=== PATIENT | female | born 1960 | race Caucasian/White ===

== ENCOUNTER 2023-02-25 13:35 | Inpatient (IN) | payer OTHER, SELFPAY ==
[2023-02-25] VITALS (27 sets, daily range): BP systolic 141–180; BP diastolic 75–127; PULSE 77–117; RESP 13–26; TEMP 36.4–36.6; O2SAT 88–98; BMI 15.9; BMI 15.0
--- NOTE | 2023-02-25 13:54 | ED.GENADUL1 ---
HPI - General Adult General Chief complaint: Shortness of Breath/Dyspnea Stated complaint: SHORTNESS OF BREATH/DIFFICULTY BREATHING Time Seen by Provider: 02/25/23 13:41 Source: patient Mode of arrival: walk-in Limitations: no limitations History of Present Illness HPI narrative: patient with steadily increasing shortness of breath over the last week. Does not have a PCP and has never had PFTs. 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 Went to urgent care and diagnosed with bronchitis - placed on zpak and albuterol MDI - got worse rather than better. No fever or chills. Steady cough. initially had exertional dyspnea and now has conversational dyspnea. No chest pain, pressure or tightness. No GI or symptoms. She apparently has an appointment with Dr Macedo next week - this will be the initial PCP visit. Related Data Home Medications Medication Instructions Recorded Confirmed albuterol sulfate 90 mcg/actuation 2 puff inhalation Q6H PRN sob 02/25/23 02/25/23 aerosol inhaler azithromycin 250 mg tablet mg 02/25/23 cetirizine 10 mg tablet (24Hour 10 mg PO DAILY 02/25/23 02/25/23 Allergy) methylprednisolone 4 mg tablets in 4 mg 02/25/23 a dose pack Allergies Allergy/AdvReac Type Severity Reaction Status Date / Time penicillin G Allergy Intermediate Verified 02/25/23 13:49 [facility] Social History Smoking status: Current every day smoker Exam Narrative Exam Narrative: Nurses notes and vital signs reviewed and patient IS hypoxic - was less than 89% on RA - now 97% on 3LPM NC placed after arrival. afebrile General: Tachypneic and in mild distress. Skin: Warm, dry, no pallor noted. No rash. Head: Normocephalic, atraumatic. Neck: Supple, non-tender. Eye: Pupils are equal, round and EOMI. No scleral icterus. Ears, Nose, Mouth, and Throat: Oral mucosa is moist Cardiovascular: Regular Rate and Rhythm without murmur, gallop or rub. Respiratory: Accessory muscle use and increased work of breathing with decreased air exchange. Lungs with inspiratory and inspiratory wheezing but not moving air well. Chest Wall: no tenderness, crepitus or subcutaneous emphysema Musculoskeletal: normal ROM, no calf or popliteal tenderness, no lower extremity edema/swelling GI: Abdomen is soft, non-distended. Normal bowel sounds. No tenderness to palpation. No rebound, guarding, or rigidity noted. Neurological: A&O x4. No cranial nerve dysfunction observed. No truncal ataxia. Moves all extremities. Sensation intact. Psychiatric: Cooperative and interactive. Normal mood and affect. Constitutional Vital Signs, click to edit/add: Last Vital Signs Temp 97.6 F 02/25/23 13:43 Pulse 89 02/25/23 14:40 Resp 24 02/25/23 14:40 BP 161/94 H 02/25/23 14:30 Pulse Ox 97 02/25/23 14:44 O2 Del Method Nasal Cannula 02/25/23 14:44 O2 Flow Rate 3 02/25/23 14:44 Course Vital Signs Vital signs: Vital Signs Pulse Oximetry 89 L 02/25/23 13:42 Temperature 97.6 F 02/25/23 13:43 Pulse Rate 89 02/25/23 14:40 Respiratory Rate 24 02/25/23 14:40 Blood Pressure 161/94 H 02/25/23 14:30 Pulse Oximetry 97 02/25/23 14:44 Oxygen Delivery Method Nasal Cannula 02/25/23 14:44 Oxygen Delivery Flow Rate 3 02/25/23 14:44 Medical Decision Making MDM Narrative Medical decision making narrative: Patient hypoxic on arrival, increased work of breathing and decreased air exchange. penitentiary smoker without recent PCP evaluation and no prior LFTs. Clinical picture of COPD. Patient was placed on cardiac tech and EKG obtained. Blood drawn and sent for evaluation. Patient ordered to receive IV Solumedrol and nebulized Albuterol/Atrovent. WBC elevated at 12.5k. DDimer and troponin negative. metabolic profile essentially unremarkable. CXR with hyperinflation consistent with COPD. Patient felt better after receiving oxygen via NC but still has increased work of breathing. Better air exchange on re-examination after receiving duoneb treatment. Will need to be admitted for hypoxia and COPD. Call placed to Dr Hamilton to discuss and he agreed to admit the patient to his service. Patient would benefit from out-patient PULM referral/follow up. Patient informed of diagnosis, plan for treatment and need for admission. Lab Data Lab results reviewed: Yes I reviewed the patient's lab results Labs: Lab Results 02/25/23 02/25/23 Range/Units 14:00 14:05 WBC 12.5 H (4.0-11.0) 10^3/uL RBC 5.60 H (4.20-5.40) 10^6/uL Hgb 15.9 (12.0-16.0) g/dL Hct 48.7 H (36.0-48.0) % MCV 87.0 (81.0-99.0) fL MCH 28.4 (26.7-34.0) pg MCHC 32.6 (29.9-35.2) g/dL RDW 13.7 (11.0-15.0) % Plt Count 461 H (150-450) 10^3/uL MPV 9.6 (9.5-13.5) fL Neut % (Auto) 71.0 (43.0-75.0) % Lymph % (Auto) 20.1 L (20.5-60.0) % [place] % (Auto) 7.3 (1.7-12.0) % Eos % (Auto) 0.7 L (0.9-7.0) % Baso % (Auto) 0.6 (0.2-2.0) % Neut # (Auto) 8.8 H (1.4-6.5) 10^3/uL Lymph # (Auto) 2.5 (1.2-3.8) 10^3/uL [place] # (Auto) 0.9 H (0.3-0.8) 10^3/uL Eos # (Auto) 0.1 (0.0-0.7) 10^3/uL Baso # (Auto) 0.1 (0.0-0.1) 10^3/uL Abs Immat Gran (auto) 0.04 H (0.00-0.03) 10^3/uL Imm/Tot Granulo (auto) 0.3 (0.0-0.5) % D-Dimer <0.19 (<=0.59) mg/L FEU Sodium 137 (136-145) mmol/L Potassium 4.0 (3.5-5.1) mmol/L Chloride 99 (98-107) mmol/L Carbon Dioxide 31.2 (21.0-32.0) mmol/L Anion Gap 10.8 BUN 13.0 (7.0-18.0) mg/dL Creatinine 0.69 (0.55-1.02) mg/dL Est GFR ( Amer) >60 (>=60) Est GFR (Non-Af Amer) >60 (>=60) BUN/Creatinine Ratio 18.8 Glucose 107 H (74-106) mg/dL Lactate 1.3 (0.4-2.0) mmol/L Calcium 9.3 (8.5-10.1) mg/dL Troponin I High Sens 7.7 (4.0-51.3) pg/mL NT-Pro-B Natriuret Pep 264.0 (<=900.0) pg/mL SARS-CoV-2 (PCR) Negative (NEGATIVE) ECG Data Interpretation: EKG interpretation: Emergency Department physician interpretation. Normal sinus rhythm at 83bpm. moderate right axis, no ST segment elevation or depression. Discharge Plan Discharge Chief Complaint: Shortness of Breath/Dyspnea Time of Disposition Decision: 15:06 Prescriptions / Home Meds: No Action albuterol sulfate 90 mcg/actuation HFA aerosol inhaler 2 puff INHALATION Q6H PRN (Reason: sob) azithromycin 250 mg tablet methylprednisolone 4 mg tablets,dose pack 4 mg cetirizine [24Hour Allergy] 10 mg tablet 10 mg PO DAILY
--- NOTE | 2023-02-25 13:57 | XR_ITS ---
The [address] [address] Patient Name: BOB SIMPSON MRN: [id number] date: 1960 Sex: F Assigned Patient Location: ED.MAIN Current Patient Location: ED.MAIN Accession/Order Number: [id number] Exam Date: 02/25/2023 14:35 Report Date: 02/25/2023 15:03 At the request of: ANDREIA AVILA Procedure: XR chest 1V EXAM: XR chest 1V HISTORY: shortness of breath COMPARISON: None. TECHNIQUE: Single AP view. FINDINGS: The lungs are hyperexpanded with air trapping. Consider COPD or reactive airway disease. The heart size is normal. Vascularity is also normal. XR/XR chest 1V IMPRESSION: No acute findings. Electronically authenticated by: CYNDEE ALMONTE Date: 02/25/2023 15:03
--- NOTE | 2023-02-25 13:57 | ECG_ITS ---
The [facility] Test Date: 2023-02-25 Pat Name: BOB SIMPSON Department: Room: - Gender: Female Type Copy Examiner: : 1960 Requested By: Order Number: [id number] Reading MD: NAPOLEON MCCORMICK Measurements Intervals [place] Rate: 83 P: 90 DE: 150 QRS: 91 QRSD: 80 T: 76 QT: 356 QTc: 396 Interpretive Statements 1100 Sinus rhythm 46910 with occasional ventricular premature complexes (Unreliable analysis due to noise) 7102 Moderate right axis deviation 0102 ARTIFACT PRESENT 9140 abnormal rhythm ECG No previous ECG available for comparison Electronically Signed On 02-26-2023 18:41:13 EDT by NAPOLEON MCCORMICK
[2023-02-25] MEDS: IPRATROPIUM/ALBUTEROL SULFATE 3 ML AMPUL.NEB IH ×3 (14:19→21:07)
[2023-02-25 14:20] LABS: Basophils Absolute Auto 0.1 10^3/uL (0.0-0.1); Basophils Percent Auto 0.6 % (0.2-2.0); Eosinophils Absolute Auto 0.1 10^3/uL (0.0-0.7); Eosinophils Percent Auto 0.7 % (0.9-7.0); Hematocrit 48.7 % (36.0-48.0); Hemoglobin 15.9 g/dL (12.0-16.0); Immature Granulocytes Abs Auto 0.04 10^3/uL (0.00-0.03); Immature Granulocytes Pct Auto 0.3 % (0.0-0.5); Lymphocytes Absolute Auto 2.5 10^3/uL (1.2-3.8); Lymphocytes Percent Auto 20.1 % (20.5-60.0); Mean Corpuscular HGB Conc 32.6 g/dL (29.9-35.2); Mean Corpuscular Hemoglobin 28.4 pg (26.7-34.0); Mean Platelet Volume 9.6 fL (9.5-13.5); Monocytes Absolute Auto 0.9 10^3/uL (0.3-0.8); Monocytes Percent Auto 7.3 % (1.7-12.0); Neutrophils Absolute Auto 8.8 10^3/uL (1.4-6.5); Platelet Count 461 10^3/uL (150-450); Red Cell Distribution Width 13.7 % (11.0-15.0); White Blood Count 12.5 10^3/uL (4.0-11.0)
[2023-02-25] MEDS: METHYLPREDNISOLONE SOD SUCC PF 125 MG/2 ML VIAL IVP (14:22)
[2023-02-25 14:33] LABS: D Dimer <0.19 mg/L FEU (<=0.59)
[2023-02-25 14:38] LABS: Lactate/Lactic Acid 1.3 mmol/L (0.4-2.0)
[2023-02-25 14:44] LABS: Anion Gap 10.8; BUN Creatinine Ratio 18.8; Calcium 9.3 mg/dL (8.5-10.1); Carbon Dioxide 31.2 mmol/L (21.0-32.0); Chloride 99 mmol/L (98-107); Estimated GFR (African America >60 (>=60); Estimated GFR (Non-African Ame >60 (>=60); Glucose 107 mg/dL (74-106); Sodium 137 mmol/L (136-145); Troponin I High Sensitivity 7.7 pg/mL (4.0-51.3)
[2023-02-25 14:51] LABS: SARS-CoV-2 Ag NEGATIVE (NEGATIVE)
--- NOTE | 2023-02-25 16:25 | PC.NURSE ---
Computer Systems Designer and Pigment Weigher Jayla two verification for wrist band
[2023-02-25 17:16] LABS: Glucometer 149 mg/dL (74-106)
[2023-02-25] MEDS: AZITHROMYCIN 250 MG TABLET 500 MG PO (17:34)
[2023-02-25 20:14] LABS: Glucometer 194 mg/dL (74-106)
[2023-02-25] MEDS: ENOXAPARIN SODIUM 30 MG/0.3 ML SYRINGE SUBQ (21:57)
[2023-02-25] MEDS: INSULIN ASPART 300 UNIT/3 ML PEN SUBQ (21:58)
[2023-02-25] MEDS: METHYLPREDNISOLONE SOD SUCC PF 125 MG/2 ML VIAL 40 MG IVP (22:37)
[2023-02-26] VITALS (23 sets, daily range): BP systolic 134–148; BP diastolic 77–92; PULSE 91–119; RESP 3–20; TEMP 36.6–36.7; O2SAT 82–97
[2023-02-26] MEDS: IPRATROPIUM/ALBUTEROL SULFATE 3 ML AMPUL.NEB IH (01:15)
--- NOTE | 2023-02-26 04:35 | ECG_ITS ---
The [facility] Test Date: 2023-02-26 Pat Name: BOB SIMPSON Department: Room: Gender: Female Die Hardener: : 1960 Requested By: Order Number: [id number] Reading MD: NAPOLEON MCCORMICK Measurements Intervals [place] Rate: 101 P: 84 PA: 176 QRS: 91 QRSD: 84 T: 64 QT: 349 QTc: 454 Interpretive Statements SINUS TACHYCARDIA POSSIBLE RIGHT ATRIAL ENLARGEMENT [0.25mV P WAVE] LEFT ATRIAL ENLARGEMENT [-0.15mV P WAVE IN V1/V2] BORDERLINE RIGHT AXIS DEVIATION [QRS AXIS > 90] SEPTAL MYOCARDIAL INFARCTION [40+ ms Q WAVE IN V1/V2], OF INDETERMINATE AGE Compared to ECG 02/25/2023 13:53:02 Atrial abnormality now present Myocardial infarct finding now present Sinus rhythm no longer present Ventricular premature complex(es) no longer present Electronically Signed On 02-26-2023 18:44:16 EDT by NAPOLEON MCCORMICK
[2023-02-26 04:37] LABS: Basophils Percent Auto 0.1 % (0.2-2.0); Hematocrit 43.9 % (36.0-48.0); Immature Granulocytes Abs Auto 0.03 10^3/uL (0.00-0.03); Immature Granulocytes Pct Auto 0.3 % (0.0-0.5); Lymphocytes Absolute Auto 0.9 10^3/uL (1.2-3.8); Lymphocytes Percent Auto 8.9 % (20.5-60.0); Mean Corpuscular HGB Conc 34.2 g/dL (29.9-35.2); Mean Corpuscular Hemoglobin 29.5 pg (26.7-34.0); Mean Corpuscular Volume 86.4 fL (81.0-99.0); Monocytes Absolute Auto 0.2 10^3/uL (0.3-0.8); Monocytes Percent Auto 2.2 % (1.7-12.0); Neutrophils Absolute Auto 8.4 10^3/uL (1.4-6.5); Neutrophils Percent Auto 88.5 % (43.0-75.0); Platelet Count 445 10^3/uL (150-450); Red Blood Count 5.08 10^6/uL (4.20-5.40); Red Cell Distribution Width 13.6 % (11.0-15.0); White Blood Count 9.5 10^3/uL (4.0-11.0)
[2023-02-26 05:03] LABS: Alanine Aminotransferase 30 U/L (14-59); Albumin Globulin Ratio 1.1; Albumin Level 3.7 g/dL (3.4-5.0); Alkaline Phosphatase 82 U/L (46-116); Anion Gap 8.6; Aspartate Amino Transferase 23 U/L (15-37); BUN Creatinine Ratio 18.5; Bilirubin Total 0.4 mg/dL (0.2-1.0); Calcium 9.3 mg/dL (8.5-10.1); Carbon Dioxide 32.6 mmol/L (21.0-32.0); Chloride 101 mmol/L (98-107); Estimated GFR (African America >60 (>=60); Estimated GFR (Non-African Ame >60 (>=60); Globulin 3.4 g/dL; Glucose 129 mg/dL (74-106); Potassium 4.2 mmol/L (3.5-5.1); Sodium 138 mmol/L (136-145); Total Protein 7.1 g/dL (6.4-8.2)
[2023-02-26 05:08] LABS: Magnesium 2.3 mg/dL (1.8-2.4); Troponin I High Sensitivity 7.2 pg/mL (4.0-51.3)
[2023-02-26 07:26] LABS: Glucometer 112 mg/dL (74-106)
[2023-02-26] MEDS: METHYLPREDNISOLONE SOD SUCC PF 125 MG/2 ML VIAL 40 MG IVP ×3 (07:39→22:19)
[2023-02-26] MEDS: AZITHROMYCIN 250 MG TABLET 500 MG PO (08:36)
[2023-02-26 11:14] LABS: Glucometer 119 mg/dL (74-106)
--- NOTE | 2023-02-26 12:14 | PM.HP ---
H&P: HPI History of Present Illness Chief complaint: SHORTNESS OF BREATH/DIFFICULTY BREATHING Narrative: 62 y o female with longstanding hx of smoking presents with 3-4 weeks of worsening SOB, weakness and fatigue and was found to be hypoxic with pulse Ox in 88% on RA and was admitted for acute resp failure with hypoxia likely sec to COPD exacerbation. Patient was treated with systemic steroids, duonebs and seemed to be doing better and was briefly w/o O2 and plan was to discharge her on oral Prednisone. However, she later on became acutely hypoxic with pulse ox in low 80s on RA and was put on Oxygen again. She is experiencing tachycardia and anxioty on Duonebs so we will change duonebs to Xopenex. Will repeat CXR to ensure no new lung findings. Paitent changed to inpatient as continues to have resp difficulty, event at rest, persistent hypoxia and will required continued treatment and monitoring. Off note, she was treated for COPD exacerbation about a week ago with oral steroids, ventolin inhaler about a week ago at an urgent care with no improvement in her symptoms She denies fever, chills. She does not have a formal diagnosis of COPD. Review of Systems ROS Status of ROS 10 or more systems reviewed and unremarkable except as noted in history and below PFSH PFSH Medical History Basal cell carcinoma ?C44.91 - Basal cell carcinoma of skin, unspecified (ICD-10) COPD (chronic obstructive pulmonary disease) ?J44.9 - Chronic obstructive pulmonary disease, unspecified (ICD-10) Hypoxia ?R09.02 - Hypoxemia (ICD-10) Smoker ?F17.200 - Nicotine dependence, unspecified, uncomplicated (ICD-10) Family History Brother Family history of cancer Mother Family history of diabetes mellitus Other Family history of hypertension Social History Within the past year, how often did you have six or more drinks on one occasion: never Smoking status: Current every day smoker Previous occupational history: Retired from [employer] Known occupational exposures/hazards: No Highest level of school completed/degree received: some college, no degree Are you now , , , , never or living with a partner: In a typical week, how many times do you talk on the telephone with family, friends, or neighbors: 3 or more times per week How often do you get together with friends or relatives: 3 or more times per week How often do you attend samaritan or uatsdin services: never Do you belong to any clubs or organizations such as samaritan groups unions, fraternal or athletic groups, or school groups: no Total score: 2 Score interpretation: A score of greater than or equal to 2 indicates the lowest level of social isolation. Little interest or pleasure in doing things: not at all Feeling down, depressed, or hopeless: not at all Feel stressed/tense/nervous/anxious/difficulty sleeping: not at all Due to disability, difficulty making decisions: No Do you think of yourself as: straight/heterosexual Gender Identity: female Meds Home Medications and Allergies Home Medications Medication Instructions Recorded Confirmed Type albuterol sulfate 90 mcg/actuation 2 puff inhalation Q6H PRN sob 02/25/23 02/25/23 History aerosol inhaler azithromycin 250 mg tablet 250 mg PO QDAY 02/25/23 02/26/23 History cetirizine 10 mg tablet (24Hour 10 mg PO DAILY 02/25/23 02/25/23 History Allergy) methylprednisolone 4 mg tablets in 4 mg PO DAILY 02/25/23 02/26/23 History a dose pack Allergies Allergy/AdvReac Type Severity Reaction Status Date / Time penicillin G Allergy Intermediate Verified 02/25/23 13:49 Exam Constitutional Vital Signs, click to edit/add: Last Vital Signs Temp 98 F 02/26/23 05:05 Pulse 98 H 02/26/23 11:52 Resp 14 02/26/23 11:12 BP 138/92 H 02/26/23 05:05 Pulse Ox 94 L 02/26/23 11:52 O2 Del Method Nasal Cannula 02/26/23 11:13 O2 Flow Rate 3 02/26/23 11:13 Documenting provider has reviewed patient's vital signs: yes Common normals: oriented x3 General appearance: cooperative and anxious Nutritional appearance: cachectic HENMT Common normals: normocephalic and head/scalp atraumatic Head and scalp: normocephalic and atraumatic Eye Common normals: conjunctivae normal and no scleral icterus Conjunctiva: conjunctiva(e) normal Respiratory Common normals: no use of accessory muscles Effort & inspection: able to speak in complete sentences Auscultation: wheezes and diminished lung sounds Cardio Common normals: S1 normal heart sound and S2 normal heart sound Rate: tachycardic Heart sounds: S1 normal and S2 normal GI Common normals: Normal to inspection, nondistended, normoactive bowel sounds present, soft to palpation, non-tender and no hepatosplenomegaly Palpation: soft and no hepatosplenomegaly Extremity Common normals: no clubbing, cyanosis or edema Neuro Common normals: oriented x3, moves all extremities and no focal motor deficits Psych Common normals: mental status grossly normal, denies hallucinations, denies homicidal ideation and denies suicidal ideation Activity/motor behavior: restless Mood and affect: anxious Results Labs Labs: Short CBC 02/25/23 02/26/23 Range/Units 14:05 04:01 WBC 12.5 H 9.5 (4.0-11.0) 10^3/uL Hgb 15.9 15.0 (12.0-16.0) g/dL Hct 48.7 H 43.9 (36.0-48.0) % Plt Count 461 H 445 (150-450) 10^3/uL BMP 02/25/23 02/26/23 14:05 04:01 Sodium 137 138 Potassium 4.0 4.2 Chloride 99 101 Carbon Dioxide 31.2 32.6 H BUN 13.0 12.0 Creatinine 0.69 0.65 Glucose 107 H 129 H Calcium 9.3 9.3 Liver Function 02/26/23 Range/Units 04:01 Total Bilirubin 0.4 (0.2-1.0) mg/dL AST 23 (15-37) U/L ALT 30 (14-59) U/L Alkaline Phosphatase 82 (46-116) U/L Albumin 3.7 (3.4-5.0) g/dL Assessment and Plan Assessment and Plan (1) Acute respiratory failure with hypoxia: Assessment and Plan: No prior hx of hypoxia. Sec to COPD exacerbation. C/w systemic steroids. Repeat CXR. Wean off O2 as tolerated. (2) COPD with acute exacerbation: Assessment and Plan: No prior formal diagnoses of COPD But considering her prolonged hx of smoking - she likely has undrlying COPD. Switched to Xopenex as she was experiencing tachycardia, anxiety of duonebs. Repeat CXR. Added OPEP. (3) Anxiety: Assessment and Plan: Added vistaril for her anxiety. (4) Smoker: Assessment and Plan: 1 PPD for over 40 years. Discussed smoking cessation (5) Malnutrition: Assessment and Plan: bitemporal muscle wasting noted. BMI of 15. Added ensure. WIll need outpatient w/u for possible underlying malignancy.
--- NOTE | 2023-02-26 12:21 | XR_ITS ---
The [address] [address] Patient Name: BOB SIMPSON MRN: [id number] date: 1960 Sex: F Assigned Patient Location: MS Current Patient Location: MS Accession/Order Number: [id number] Exam Date: 02/26/2023 14:00 Report Date: 02/26/2023 16:11 At the request of: SHAIKH MAY Procedure: XR chest 1V EXAM: XR chest 1V HISTORY: Shortness of breath COMPARISON: 02/25/2023 TECHNIQUE: Chest X-ray AP, 1 view FINDINGS: Support devices: None. Lungs/pleura: No consolidation, effusion, or pneumothorax. Heart and mediastinum: Normal contours. Bones: No acute abnormality identified. XR/XR chest 1V Impression: No radiographic evidence of acute cardiopulmonary process. Electronically authenticated by: RACHELLE BEGUM Date: 02/26/2023 16:11
[2023-02-26] MEDS: ENSURE CLEAR 237 ML LIQUID PO ×2 (13:33→22:19)
[2023-02-26] MEDS: HYDROXYZINE HCL 25 MG TABLET PO ×2 (13:33→22:20)
[2023-02-26 15:30] LABS: SARS-CoV-2 NAA NOT DETECTED (NOT DETECTE)
[2023-02-26 15:56] LABS: Glucometer 190 mg/dL (74-106)
[2023-02-26] MEDS: INSULIN ASPART 300 UNIT/3 ML PEN SUBQ ×2 (16:02→22:21)
[2023-02-26] MEDS: LEVALBUTEROL HCL 1.25 MG/3 ML VIAL NEB IH ×2 (16:02→22:14)
[2023-02-26 21:41] LABS: Glucometer 152 mg/dL (74-106)
[2023-02-26] MEDS: ENOXAPARIN SODIUM 30 MG/0.3 ML SYRINGE SUBQ (22:20)
[2023-02-27] VITALS (19 sets, daily range): BP systolic 126–151; BP diastolic 77–92; PULSE 82–112; RESP 16–24; TEMP 36.6–36.9; O2SAT 90–96
[2023-02-27] MEDS: LEVALBUTEROL HCL 1.25 MG/3 ML VIAL NEB IH ×4 (04:43→22:09)
[2023-02-27 06:06] LABS: Basophils Percent Auto 0.1 % (0.2-2.0); Hematocrit 44.7 % (36.0-48.0); Hemoglobin 14.5 g/dL (12.0-16.0); Immature Granulocytes Abs Auto 0.12 10^3/uL (0.00-0.03); Immature Granulocytes Pct Auto 0.7 % (0.0-0.5); Mean Corpuscular HGB Conc 32.4 g/dL (29.9-35.2); Mean Corpuscular Hemoglobin 28.3 pg (26.7-34.0); Mean Corpuscular Volume 87.3 fL (81.0-99.0); Mean Platelet Volume 9.7 fL (9.5-13.5); Monocytes Absolute Auto 0.6 10^3/uL (0.3-0.8); Monocytes Percent Auto 3.7 % (1.7-12.0); Neutrophils Absolute Auto 14.7 10^3/uL (1.4-6.5); Neutrophils Percent Auto 89.5 % (43.0-75.0); Platelet Count 456 10^3/uL (150-450); Red Blood Count 5.12 10^6/uL (4.20-5.40); Red Cell Distribution Width 13.4 % (11.0-15.0); White Blood Count 16.4 10^3/uL (4.0-11.0)
[2023-02-27] MEDS: METHYLPREDNISOLONE SOD SUCC PF 125 MG/2 ML VIAL 40 MG IVP (06:06)
[2023-02-27] MEDS: HYDROXYZINE HCL 25 MG TABLET PO ×3 (06:07→21:42)
[2023-02-27 06:57] LABS: Alanine Aminotransferase 26 U/L (14-59); Albumin Globulin Ratio 1.1; Albumin Level 3.5 g/dL (3.4-5.0); Alkaline Phosphatase 75 U/L (46-116); Anion Gap 5.5; Aspartate Amino Transferase 20 U/L (15-37); BUN Creatinine Ratio 31.7; Bilirubin Total 0.4 mg/dL (0.2-1.0); Calcium 9.3 mg/dL (8.5-10.1); Chloride 103 mmol/L (98-107); Estimated GFR (African America >60 (>=60); Estimated GFR (Non-African Ame >60 (>=60); Globulin 3.2 g/dL; Glucose 121 mg/dL (74-106); Potassium 4.5 mmol/L (3.5-5.1); Sodium 137 mmol/L (136-145); Total Protein 6.7 g/dL (6.4-8.2)
--- NOTE | 2023-02-27 07:38 | XR_ITS ---
The [address] [address] Patient Name: BOB SIMPSON MRN: [id number] date: 1960 Sex: F Assigned Patient Location: MS Current Patient Location: MS Accession/Order Number: [id number] Exam Date: 02/27/2023 07:50 Report Date: 02/27/2023 08:18 At the request of: SHAIKH MAY Procedure: XR chest 1V EXAM: XR chest 1V HISTORY: SOB COMPARISON: 02/26/2023 TECHNIQUE: AP portable erect FINDINGS: LUNGS: Hyperinflation. No focal parenchymal infiltrates VASCULATURE: No increased pulmonary vasculature. PLEURA: No pneumothorax, effusion, or pleural thickening. CARDIAC: No cardiomegaly or cardiac silhouette abnormality. MEDIASTINUM: No visible mass or adenopathy. Aortic atherosclerosis BONES: No fracture or visible bone lesion. OTHER: Negative. XR/XR chest 1V IMPRESSION: Hyperinflation, clear lungs Electronically authenticated by: LEELEE ALST Date: 02/27/2023 08:18
[2023-02-27 09:23] LABS: Glucometer 152 mg/dL (74-106)
[2023-02-27] MEDS: AZITHROMYCIN 250 MG TABLET 500 MG PO (09:40)
[2023-02-27] MEDS: ENSURE CLEAR 237 ML LIQUID PO (09:41)
--- NOTE | 2023-02-27 10:45 | CT_ITS ---
[address] [address] Patient Name: BOB SIMPSON MRN: [id number] date: 1960 Sex: F Assigned Patient Location: MS Current Patient Location: MS Accession/Order Number: [id number] Exam Date: 02/27/2023 11:00 Report Date: 02/27/2023 11:53 At the request of: SHAIKH MAY Procedure: CT angio chest EXAMINATION: CT angio chest HISTORY: SOB COMPARISON: No relevant comparison available. TECHNIQUE: Multi-planar CT images were created with IV contrast. Axial, Coronal, and Sagittal images. Dose reduction techniques were achieved by using automated exposure control and/or adjustment of mA and/or kV according to patient size and/or use of iterative reconstruction technique. FINDINGS: LUNGS: Moderate to severe centrilobular emphysema with an upper lobe predominance. No significant pulmonary nodule or mass is observed. Some linear opacities in the apices and lung bases likely represent atelectasis and/or scarring. PLEURA: No mass, effusion, or pneumothorax. VASCULATURE: Normal postcontrast opacification of the central pulmonary arterial tree with no filling defects to suggest acute pulmonary embolus. Dilation of the ascending aorta measuring 4 cm in diameter. TEJ: No mass or adenopathy. MEDIASTINUM: No mass or adenopathy. CARDIAC: No enlargement, pericardial thickening, or significant calcification. AORTA: No aneurysm or dissection. CHEST WALL: No mass or axillary adenopathy. BONES: No bone lesion or fracture. LIMITED ABDOMEN: No suspicious findings. Limited images of the upper abdomen. OTHER: Negative. CT/CT angio chest IMPRESSION: No central pulmonary thromboembolic disease Moderate to severe centrilobular emphysema Dilated ascending aorta measuring 4 cm in diameter Electronically authenticated by: LEELEE LAST Date: 02/27/2023 11:53
--- NOTE | 2023-02-27 10:46 | PM.DS1 ---
DS: Providers Provider Date of admission: 02/26/23 11:51 Primary care physician: Non-Staff Physician, Consults: 02/27/23 10:45 Consult to Pulmonology Routine Consulting Provider: Wesley Stephens Reason for consultation: COPD, resp failure with hypoxia Has provider been notified: Yes DS: Diagnosis Discharge Diagnosis (1) Acute respiratory failure with hypoxia: (2) COPD with acute exacerbation: (3) Anxiety: (4) Smoker: (5) Malnutrition: DS: Summary Time Spent with Patient Time attestation: Total time spent providing and/or coordinating discharge services: Exam Constitutional Vital Signs, click to edit/add: Last Vital Signs Temp 97.8 F 02/27/23 06:11 Pulse 112 H 02/27/23 09:51 Resp 18 02/27/23 06:11 BP 151/86 H 02/27/23 06:11 Pulse Ox 92 L 02/27/23 09:51 O2 Del Method Nasal Cannula 02/27/23 06:11 O2 Flow Rate 2 02/27/23 06:11 DS: Data Data Completed and Pending Labs on day of discharge: Labs from last 24 hours 02/27/23 02/27/23 02/26/23 09:07 04:30 21:39 WBC 16.4 H RBC 5.12 Hgb 14.5 Hct 44.7 MCV 87.3 MCH 28.3 MCHC 32.4 RDW 13.4 Plt Count 456 H MPV 9.7 Neut % (Auto) 89.5 H Lymph % (Auto) 6.0 L [place] % (Auto) 3.7 Eos % (Auto) 0.0 L Baso % (Auto) 0.1 L Neut # (Auto) 14.7 H Lymph # (Auto) 1.0 L [place] # (Auto) 0.6 Eos # (Auto) 0.0 Baso # (Auto) 0.0 Abs Immat Gran (auto) 0.12 H Imm/Tot Granulo (auto) 0.7 H Sodium 137 Potassium 4.5 Chloride 103 Carbon Dioxide 33.0 H Anion Gap 5.5 BUN 20.0 H Creatinine 0.63 Est GFR ( Amer) >60 Est GFR (Non-Af Amer) >60 BUN/Creatinine Ratio 31.7 Glucose 121 H Calcium 9.3 Total Bilirubin 0.4 AST 20 ALT 26 Alkaline Phosphatase 75 Total Protein 6.7 Albumin 3.5 Globulin 3.2 Albumin/Globulin Ratio 1.1 SARS-CoV-2 RNA (JC) POC Glucose 152 H 152 H 02/26/23 02/26/23 02/25/23 15:55 11:12 14:00 WBC RBC Hgb Hct MCV MCH MCHC RDW Plt Count MPV Neut % (Auto) Lymph % (Auto) [place] % (Auto) Eos % (Auto) Baso % (Auto) Neut # (Auto) Lymph # (Auto) [place] # (Auto) Eos # (Auto) Baso # (Auto) Abs Immat Gran (auto) Imm/Tot Granulo (auto) Sodium Potassium Chloride Carbon Dioxide Anion Gap BUN Creatinine Est GFR ( Amer) Est GFR (Non-Af Amer) BUN/Creatinine Ratio Glucose Calcium Total Bilirubin AST ALT Alkaline Phosphatase Total Protein Albumin Globulin Albumin/Globulin Ratio SARS-CoV-2 RNA (JC) Not detected POC Glucose 190 H 119 H Discharge Plan Discharge Discharge Medications: No Action albuterol sulfate 90 mcg/actuation HFA aerosol inhaler 2 puff INHALATION Q6H PRN (Reason: sob) azithromycin 250 mg tablet 250 mg PO QDAY Rx Instructions: 500 mg on day 1 02/22 then 250 mg daily for 4 days methylprednisolone 4 mg tablets,dose pack 4 mg PO DAILY Rx Instructions: medrol dose pack started 02/22 for 6 days cetirizine [24Hour Allergy] 10 mg tablet 10 mg PO DAILY
--- NOTE | 2023-02-27 10:46 | PM.IMPN1 ---
Progress Note: A&P Assessment and Plan (1) Acute respiratory failure with hypoxia: Assessment and Plan: Persistent hypoxia, continues to feel dyspnea at rest. CTA chest ordered to r/o PE. Consulted Pulm (2) COPD with acute exacerbation: Assessment and Plan: diminished air entry, generalized wheezing. C/w steroids, xopenex. Pulm consulted. (3) Anxiety: Assessment and Plan: Improved with addition of vistaril. C/w same (4) Smoker: Assessment and Plan: Educated and counseled on smoking cessation (5) Malnutrition: Assessment and Plan: Started on ensure. Will need outpatient f/u with medical collections specialist Plan Persistent resp distress with hypoxia. Pulm consulted. CTA chest ordered. Needs continued inpatient care and management for current illness. Internal Medicine - PN: Subj Subjective Interval history: Seen and examined. No overnight events. Patient appears short of breath at rest. Gets winded on minimal exertion. Still on 3 L O2 via NC Exam Constitutional Vital Signs, click to edit/add: Last Vital Signs Temp 97.8 F 02/27/23 06:11 Pulse 112 H 02/27/23 09:51 Resp 18 02/27/23 06:11 BP 151/86 H 02/27/23 06:11 Pulse Ox 92 L 02/27/23 09:51 O2 Del Method Nasal Cannula 02/27/23 06:11 O2 Flow Rate 2 02/27/23 06:11 Documenting provider has reviewed patient's vital signs: yes Common normals: oriented x3 General appearance: cooperative and anxious Nutritional appearance: cachectic [facility] Common normals: normocephalic and head/scalp atraumatic Head and scalp: normocephalic and atraumatic Eye Common normals: conjunctivae normal and no scleral icterus Conjunctiva: conjunctiva(e) normal Respiratory Effort & inspection: tachypneic Auscultation: wheezes and diminished lung sounds Other: Tachypneic, speaking in short sentences. Cardio Common normals: S1 normal heart sound and S2 normal heart sound Rate: tachycardic Heart sounds: S1 normal and S2 normal GI Common normals: Normal to inspection, nondistended, normoactive bowel sounds present, soft to palpation, non-tender and no hepatosplenomegaly Palpation: soft and no hepatosplenomegaly Extremity Common normals: no clubbing, cyanosis or edema Neuro Common normals: oriented x3, moves all extremities and no focal motor deficits Psych Common normals: mental status grossly normal, denies hallucinations, denies homicidal ideation and denies suicidal ideation Activity/motor behavior: restless Mood and affect: anxious Internal Medicine - PN: Obj Da Labs Labs: Laboratory Results - last 24 hr 02/25/23 02/26/23 02/26/23 14:00 11:12 15:55 WBC RBC Hgb Hct MCV MCH MCHC RDW Plt Count MPV Neut % (Auto) Lymph % (Auto) [place] % (Auto) Eos % (Auto) Baso % (Auto) Neut # (Auto) Lymph # (Auto) [place] # (Auto) Eos # (Auto) Baso # (Auto) Abs Immat Gran (auto) Imm/Tot Granulo (auto) Sodium Potassium Chloride Carbon Dioxide Anion Gap BUN Creatinine Est GFR ( Amer) Est GFR (Non-Af Amer) BUN/Creatinine Ratio Glucose Calcium Total Bilirubin AST ALT Alkaline Phosphatase Total Protein Albumin Globulin Albumin/Globulin Ratio SARS-CoV-2 RNA (JC) Not detected POC Glucose 119 H 190 H 02/26/23 02/27/23 02/27/23 21:39 04:30 09:07 WBC 16.4 H RBC 5.12 Hgb 14.5 Hct 44.7 MCV 87.3 MCH 28.3 MCHC 32.4 RDW 13.4 Plt Count 456 H MPV 9.7 Neut % (Auto) 89.5 H Lymph % (Auto) 6.0 L [place] % (Auto) 3.7 Eos % (Auto) 0.0 L Baso % (Auto) 0.1 L Neut # (Auto) 14.7 H Lymph # (Auto) 1.0 L [place] # (Auto) 0.6 Eos # (Auto) 0.0 Baso # (Auto) 0.0 Abs Immat Gran (auto) 0.12 H Imm/Tot Granulo (auto) 0.7 H Sodium 137 Potassium 4.5 Chloride 103 Carbon Dioxide 33.0 H Anion Gap 5.5 BUN 20.0 H Creatinine 0.63 Est GFR ( Amer) >60 Est GFR (Non-Af Amer) >60 BUN/Creatinine Ratio 31.7 Glucose 121 H Calcium 9.3 Total Bilirubin 0.4 AST 20 ALT 26 Alkaline Phosphatase 75 Total Protein 6.7 Albumin 3.5 Globulin 3.2 Albumin/Globulin Ratio 1.1 SARS-CoV-2 RNA (JC) POC Glucose 152 H 152 H
--- NOTE | 2023-02-27 10:53 | CM.NOTE ---
Rounds made with Dr. Hamilton. Dr. Hamilton discussed plan to Consult [employer] Consult[employer] and will also order a CT Chest. No plan for discharge today.
[2023-02-27 11:34] LABS: Glucometer 106 mg/dL (74-106)
--- NOTE | 2023-02-27 12:29 | P.PLCN_ITS ---
History of Present Illness History of Present Illness Consult date: 02/27/23 Requesting physician: Shaikh Alfonso Reason for consult: COPD Chief complaint: SHORTNESS OF BREATH/DIFFICULTY BREATHING Narrative: 62yo female presented to [facility] ER with worsening dyspnea and coughing. She is a long-term smoker who, as she states neglected myself , developed worsening dyspnea over the past 2 weeks. On retrospect, she feels her breathing has been slowly declining over the past months and years - she notes increased dyspnea with stairs and decreased stamina. Last week, her breathing abruptly worsened and she went to an urgent care. She was prescribed an antibiotic, steroids, and albuterol. She did not improve, and her daughter encouraged her to come to the ER for further evaluation. While in the ER, she was noted to have a pulse ox >89% on room air. She was placed on supplemental O2 which she states makes her feel less winded. She was taken off O2 yesterday, with her pulse ox dropping into the low 80's on room air. She is on no maintenance inhalers, has not seen a physician in years (though she is scheduled for a new patient appointment with Dr. Nilsa Macedo tomorrow), and is a long-term smoker (~1ppd for years). She denied to me any other past medical history. Review of Systems ROS Status of ROS 10 or more systems reviewed and unremarkable except as noted in history and below (Main complaint is dyspnea (conversational and with activity) and cough) [facility] Medical History Basal cell carcinoma ?C44.91 - Basal cell carcinoma of skin, unspecified (ICD-10) COPD (chronic obstructive pulmonary disease) ?J44.9 - Chronic obstructive pulmonary disease, unspecified (ICD-10) Hypoxia ?R09.02 - Hypoxemia (ICD-10) Smoker ?F17.200 - Nicotine dependence, unspecified, uncomplicated (ICD-10) Family History Brother Family history of cancer Mother Family history of diabetes mellitus Other Family history of hypertension Social History Within the past year, how often did you have six or more drinks on one occasion: never Smoking status: Current every day smoker Previous occupational history: Retired from [employer] Known occupational exposures/hazards: No Highest level of school completed/degree received: some college, no degree Are you now , , , , never or living with a partner: In a typical week, how many times do you talk on the telephone with family, friends, or neighbors: 3 or more times per week How often do you get together with friends or relatives: 3 or more times per week How often do you attend alevism or uatsdin services: never Do you belong to any clubs or organizations such as alevism groups unions, [email or web address] or [employer] groups, or school groups: no Total score: 2 Score interpretation: A score of greater than or equal to 2 indicates the lowest level of social isolation. Little interest or pleasure in doing things: not at all Feeling down, depressed, or hopeless: not at all Feel stressed/tense/nervous/anxious/difficulty sleeping: not at all Due to disability, difficulty making decisions: No Do you think of yourself as: straight/heterosexual Gender Identity: female Meds Home Medications and Allergies Home Medications Medication Instructions Recorded Confirmed Type albuterol sulfate 90 mcg/actuation 2 puff inhalation Q6H PRN sob 02/25/23 02/25/23 History aerosol inhaler azithromycin 250 mg tablet 250 mg PO QDAY 02/25/23 02/26/23 History cetirizine 10 mg tablet (24Hour 10 mg PO DAILY 02/25/23 02/25/23 History Allergy) methylprednisolone 4 mg tablets in 4 mg PO DAILY 02/25/23 02/26/23 History a dose pack Allergies Allergy/AdvReac Type Severity Reaction Status Date / Time penicillin G Allergy Intermediate Verified 02/25/23 13:49 Exam Constitutional Vital Signs, click to edit/add: Last Vital Signs Temp 97.8 F 02/27/23 06:11 Pulse 106 H 02/27/23 12:00 Resp 18 02/27/23 06:11 BP 151/86 H 02/27/23 06:11 Pulse Ox 93 L 02/27/23 12:00 O2 Del Method Nasal Cannula 02/27/23 11:26 O2 Flow Rate 2 02/27/23 11:26 Documenting provider has reviewed patient's vital signs: yes General appearance: cooperative and frail appearing Nutritional appearance: underweight Orientation/consciousness: Yes awake HENMT Other: Mallampati II. No oral candidiasis Neck & C-Spine Common normals: supple Chest Other: Increased A-P diameter. Hypertympanic to percussion. Mild tactile fremitus in the bases. Ribs protruding - decreased intercostal muscle mass. Respiratory Other: Mild conversational dyspnea (~8 words before taking a breath). Diminished breath sounds. Coarse in the bases. Prolonged expiratory phase, faint expiratory wheezes. Cardio Other: Tachycardic (110's) in a regular rhythm. A PVC was noted on telemetry when I was watching it. GI Other: Soft Extremity Other: Decreased muscle mass Neuro Other: A&O x3. No significant tremor noted. Psych Other: Patient was polite and friendly. She became sad and began crying a the end of the encounter when I was discussing the damage seen on her chest CT Results Laboratory Findings ABG, PT/INR, D-dimer: PT/INR, D-dimer D-Dimer <0.19 mg/L FEU (<=0.59) 02/25/23 14:05 Abnormal lab findings: Abnormal Labs 02/25/23 02/25/23 02/25/23 14:05 17:15 20:13 WBC 12.5 H RBC 5.60 H Hct 48.7 H Plt Count 461 H Neut % (Auto) Lymph % (Auto) 20.1 L Eos % (Auto) 0.7 L Baso % (Auto) Neut # (Auto) 8.8 H Lymph # (Auto) [place] # (Auto) 0.9 H Abs Immat Gran (auto) 0.04 H Imm/Tot Granulo (auto) Carbon Dioxide BUN Glucose 107 H POC Glucose 149 H 194 H 02/26/23 02/26/23 02/26/23 04:01 07:24 11:12 WBC RBC Hct Plt Count Neut % (Auto) 88.5 H Lymph % (Auto) 8.9 L Eos % (Auto) 0.0 L Baso % (Auto) 0.1 L Neut # (Auto) 8.4 H Lymph # (Auto) 0.9 L [place] # (Auto) 0.2 L Abs Immat Gran (auto) Imm/Tot Granulo (auto) Carbon Dioxide 32.6 H BUN Glucose 129 H POC Glucose 112 H 119 H 02/26/23 02/26/23 02/27/23 15:55 21:39 04:30 WBC 16.4 H RBC Hct Plt Count 456 H Neut % (Auto) 89.5 H Lymph % (Auto) 6.0 L Eos % (Auto) 0.0 L Baso % (Auto) 0.1 L Neut # (Auto) 14.7 H Lymph # (Auto) 1.0 L [place] # (Auto) Abs Immat Gran (auto) 0.12 H Imm/Tot Granulo (auto) 0.7 H Carbon Dioxide 33.0 H BUN 20.0 H Glucose 121 H POC Glucose 190 H 152 H 02/27/23 09:07 WBC RBC Hct Plt Count Neut % (Auto) Lymph % (Auto) Eos % (Auto) Baso % (Auto) Neut # (Auto) Lymph # (Auto) [place] # (Auto) Abs Immat Gran (auto) Imm/Tot Granulo (auto) Carbon Dioxide BUN Glucose POC Glucose 152 H Diagnostic Findings Chest x-ray: report reviewed CT scan - chest: report reviewed and image reviewed (Moderately severe centrilobular emphysema. No pulmonary emboli, no masses or nodules.) Assessment and Plan Assessment and Plan (1) COPD with acute exacerbation: Assessment and Plan: 1. Acute exacerbation of COPD. Moderately severe centrilobular emphysema noted. Patient is already on appropriate treatment with bronchodilators and steroids. No masses, nodules, infiltrates, or pulmonary emboli noted on chest CT this morning. Discussed with patient that at this point, she simply needs time to begin healing - if she restarts smoking, it may never improve. At discharge, would recommend starting a LAMA/LABA (e.g. Anoro, Stiloto, Bevespi) and prednisone taper. She will need PFT and alpha 1-antitrypsin testing outpatient. She is welcome to F/U with me. 2. Acute hypoxic respiratory failure. Secondary to #1. No evidence of pulmonary emboli, infiltrates, masses, etc. noted. Patient voices improvement with O2 use. Discussed with patient that only time will tell if she requires supplemental O2 for days, weeks, or months. She was counseled not to restart smoking with any open flame around O2. If her oxygenation worsens, would recommend ABG. 3. Tobacco abuse. Moderately severe emphysema most consistent with long-term smoking. She has smoked for years. She states she is not going to restart smoking, though there is risk that she may return to cigarettes once she is back home. Explained if she restarts smoking, all the progress made in the hospital could be reset and not allow enough time for her lungs to heal. She will qualify for LDCT screening, which would start 02/2024. 4. Sinus tachycardia. Most consistent with beta agonist use. Albuterol was changed to levalbuterol which may help. As long as HR stays <120-130, it is an acceptable adverse effect.
[2023-02-27] MEDS: METHYLPREDNISOLONE SOD SUCC PF 40 MG/ML VIAL IVP ×2 (14:17→21:42)
--- NOTE | 2023-02-27 15:42 | DIETREC ---
Recommend 237 mL Ensure HP BID.
[2023-02-27 16:14] LABS: Glucometer 98 mg/dL (74-106)
[2023-02-27 20:01] LABS: Glucometer 199 mg/dL (74-106)
[2023-02-27] MEDS: INSULIN ASPART 300 UNIT/3 ML PEN SUBQ (21:41)
[2023-02-27] MEDS: ENOXAPARIN SODIUM 30 MG/0.3 ML SYRINGE SUBQ (21:42)
[2023-02-28] VITALS (17 sets, daily range): BP systolic 146; BP diastolic 99; PULSE 88–140; RESP 16–24; TEMP 36.6; O2SAT 84–95; BMI 15.0
[2023-02-28] MEDS: LEVALBUTEROL HCL 1.25 MG/3 ML VIAL NEB IH ×3 (05:17→17:38)
[2023-02-28] MEDS: HYDROXYZINE HCL 25 MG TABLET PO ×2 (05:27→14:49)
[2023-02-28] MEDS: METHYLPREDNISOLONE SOD SUCC PF 40 MG/ML VIAL IVP ×2 (05:27→14:49)
[2023-02-28 06:04] LABS: Basophils Percent Auto 0.1 % (0.2-2.0); Hematocrit 42.7 % (36.0-48.0); Immature Granulocytes Abs Auto 0.09 10^3/uL (0.00-0.03); Immature Granulocytes Pct Auto 0.6 % (0.0-0.5); Lymphocytes Absolute Auto 1.1 10^3/uL (1.2-3.8); Mean Corpuscular HGB Conc 32.8 g/dL (29.9-35.2); Mean Corpuscular Hemoglobin 28.3 pg (26.7-34.0); Mean Corpuscular Volume 86.3 fL (81.0-99.0); Mean Platelet Volume 9.6 fL (9.5-13.5); Monocytes Absolute Auto 0.8 10^3/uL (0.3-0.8); Monocytes Percent Auto 4.7 % (1.7-12.0); Neutrophils Absolute Auto 14.1 10^3/uL (1.4-6.5); Neutrophils Percent Auto 87.6 % (43.0-75.0); Platelet Count 472 10^3/uL (150-450); Red Blood Count 4.95 10^6/uL (4.20-5.40); Red Cell Distribution Width 13.4 % (11.0-15.0); White Blood Count 16.1 10^3/uL (4.0-11.0)
[2023-02-28 06:27] LABS: Alanine Aminotransferase 26 U/L (14-59); Albumin Globulin Ratio 1.1; Albumin Level 3.3 g/dL (3.4-5.0); Alkaline Phosphatase 73 U/L (46-116); Anion Gap 7.9; Aspartate Amino Transferase 17 U/L (15-37); BUN Creatinine Ratio 27.7; Bilirubin Total 0.4 mg/dL (0.2-1.0); Calcium 9.3 mg/dL (8.5-10.1); Carbon Dioxide 31.1 mmol/L (21.0-32.0); Chloride 100 mmol/L (98-107); Estimated GFR (African America >60 (>=60); Estimated GFR (Non-African Ame >60 (>=60); Glucose 104 mg/dL (74-106); Sodium 135 mmol/L (136-145); Total Protein 6.3 g/dL (6.4-8.2)
--- NOTE | 2023-02-28 07:45 | PM.PLPN ---
Progress Note: A&P Assessment and Plan (1) COPD with acute exacerbation: Assessment and Plan: 1. Acute exacerbation of COPD. Appears to be slowly improving. Continue current treatment. At discharge, recommend Rx for a LAMA/LABA (e.g. Stiolto, Anoro, Bevespi) and prednisone taper. May F/U with me in ~2 weeks outpatient. 2. Acute hypoxic respiratory failure. Secondary to #1. Assess for home O2 qualification (rest/ambulation). Counseled if she requires O2, no smoking around it! 3. Tobacco abuse. Counseled on smoking cessation. Patient was warned if she returns to smoking at discharge, any progress made during the hospitalization may be erased, and her condition may even worsen. 4. Sinus tachycardia. Most consistent with beta agonist use. Monitor for now. 5. Underweight (BMI 15). Most consistent with pulmonary cachexia. Subjective Subjective Interval history: Patient seems to be doing better today. Not as winded getting up to and from the bathroom. Remains on supplemental O2. Spoke with RT this AM - less dyspnea with neb treatments and slightly more air movement in her opinion. Patient has no new pulmonary complaints. Discussed discharge planning from a pulmonary perspective. Exam Constitutional Vital Signs, click to edit/add: Last Vital Signs Temp 97.9 F 02/28/23 05:05 Pulse 131 H 02/28/23 06:43 Resp 24 02/28/23 05:17 BP 146/99 H 02/28/23 05:05 Pulse Ox 91 L 02/28/23 06:43 O2 Del Method Nasal Cannula 02/28/23 05:17 O2 Flow Rate 2 02/28/23 05:17 Common normals: no apparent distress Nutritional appearance: underweight HENMT Other: No oral candidiasis Chest Other: Decreased intercostal mass. No rib retractions. Respiratory Other: Continues to have very diminished breath sounds. Decreased coarse breath sounds in bases with forced exhalation. Cardio Other: Tachycardia into the high 110's when moving around, but when at rest, dropped into the 90's. Regular rhythm. GI Other: No paradoxical breathing. Extremity Other: Decreased muscle mass. Neuro Common normals: oriented x3 Sensorium/orientation: awake and alert Speech: speech normal Psych Attitude: calm Speech: normal speech
[2023-02-28] MEDS: AZITHROMYCIN 250 MG TABLET 500 MG PO (08:14)
[2023-02-28] MEDS: ENSURE CLEAR 237 ML LIQUID PO (08:34)
--- NOTE | 2023-02-28 09:53 | SWNOTE1 ---
Pt will need home oxygen. Pt has insurance that SW has not seen before. VARGHESE sent face sheet and insurance card to [facility] to see if they can accept her insurance. VARGHESE to assess pt as well.
--- NOTE | 2023-02-28 10:03 | SWNOTE1 ---
SW spoke with pt in regards to the home oxygen. Pt does live at home and has a , but sounds like he is on the road for work off and on. Pt does ambulate independently at home. Pt is going to stay on the main floor and not go up and down any stairs for the time being. Pt is a little concerned about going home with oxygen. SW did re-assure pt that someone from oxygen company will be out to the home to show her everything. Pt does voice understanding about her insurance. SW to keep pt updated.
--- NOTE | 2023-02-28 11:10 | PM.DS1 ---
DS: Providers Provider Date of admission: 02/26/23 11:51 Primary care physician: Non-Staff Physician, Consults: 02/27/23 10:45 Consult to Pulmonology Routine Consulting Provider: Wesley Stephens Reason for consultation: COPD, resp failure with hypoxia Has provider been notified: Yes Attending physician on discharge: Shaikh Alfonso Discharging clinician: Shaikh Alfonso Anticipated date of discharge: 02/28/23 DS: Diagnosis Discharge Diagnosis (1) COPD with acute exacerbation: Assessment and plan: Feeling better today. Will d/c on PO prednisone, daily Stiolto inhaler and ventolin as needed. Severe emphysema on CTA. Patient will need to f/u with Dr Stephens as outpatient for her COPD. Will need PFTs as outpatient. (2) Acute respiratory failure with hypoxia: Assessment and plan: She drops her Sat to 85% on RA on ambulation and remains at 88 to 90 % at rest. She is responding well to 2 L O via NC and her Os sats remains 90-95% with 2 L O 2 via NC. Home O2 d/w patient and this will likely be alf requirement for her (3) Anxiety: Assessment and plan: Will d/c on hydroxyzine as needed. Patient will need to f/u with PCP for intermodal dispatcher care and management of her anxiety (4) Malnutrition: Assessment and plan: Likely pulmonary cachexia. No evidence of Lung mass on CTA Severe malnutrition based on exam finding, BMI. Has lost over 20 lbs according to the patient over past few months. Patient will need outpatient grinder set up operator centerless consult and F/u with PCP. (5) Descending aortic aneurysm: Assessment and plan: Incidental finding on CTA. Will need periodic f/u DS: Summary Hospital Course Hospital Course: 62 y o female with longstanding hx of smoking presented with 3-4 weeks of worsening SOB, weakness and fatigue and was found to be hypoxic with pulse Ox in 88% on RA and was admitted for acute resp failure with hypoxia likely sec to COPD exacerbation. Patient was treated with systemic steroids, duonebs and seemed to be doing better and was briefly w/o O2 and plan was to discharge her on oral Prednisone. However, she later on became acutely hypoxic with pulse ox in low 80s on RA and was put on Oxygen again. CTA chest was ordered that showed severe emphysema, aortic aneurysm but no consolidation or PE. Patient is doing much better today. She will require O2 on discharge and will likely need it for fpc use. Discussed/educated on smoking cessation. Patient also educated on worrisome signs and symptoms that should prompt her to return to ED. Recommended to f/u with PCP in [address] Stephens within 2 weeks Time spent discussing smoking cessation with patient: more than 10 minutes Status at Discharge Functional status at discharge: independent ambulation Overall status at discharge: patient is back to baseline Time Spent with Patient Time attestation: Total time spent providing and/or coordinating discharge services: Time spent: greater than 30 minutes Exam Constitutional Vital Signs, click to edit/add: Last Vital Signs Temp 97.9 F 02/28/23 05:05 Pulse 101 H 02/28/23 10:42 Resp 16 02/28/23 10:42 BP 146/99 H 02/28/23 05:05 Pulse Ox 93 L 02/28/23 10:42 O2 Del Method Nasal Cannula 02/28/23 10:42 O2 Flow Rate 2 02/28/23 10:42 Documenting provider has reviewed patient's vital signs: yes Common normals: oriented x3 General appearance: cooperative and comfortable Nutritional appearance: cachectic HENMT Common normals: normocephalic and head/scalp atraumatic Head and scalp: normocephalic and atraumatic Eye Common normals: conjunctivae normal and no scleral icterus Conjunctiva: conjunctiva(e) normal Respiratory Common normals: normal respiratory effort and no use of accessory muscles Effort & inspection: able to speak in complete sentences Auscultation: wheezes and diminished lung sounds Other: Tachypneic, speaking in short sentences. Cardio Common normals: S1 normal heart sound and S2 normal heart sound Rate: tachycardic Heart sounds: S1 normal and S2 normal GI Common normals: Normal to inspection, nondistended, normoactive bowel sounds present, soft to palpation, non-tender and no hepatosplenomegaly Palpation: soft and no hepatosplenomegaly Extremity Common normals: no clubbing, cyanosis or edema Neuro Common normals: oriented x3, moves all extremities and no focal motor deficits Psych Common normals: mental status grossly normal, denies hallucinations, denies homicidal ideation and denies suicidal ideation Attitude: calm DS: Data Data Completed and Pending Labs on day of discharge: Labs from last 24 hours 02/28/23 02/27/23 02/27/23 04:52 19:59 16:13 WBC 16.1 H RBC 4.95 Hgb 14.0 Hct 42.7 MCV 86.3 MCH 28.3 MCHC 32.8 RDW 13.4 Plt Count 472 H MPV 9.6 Neut % (Auto) 87.6 H Lymph % (Auto) 7.0 L [place] % (Auto) 4.7 Eos % (Auto) 0.0 L Baso % (Auto) 0.1 L Neut # (Auto) 14.1 H Lymph # (Auto) 1.1 L [place] # (Auto) 0.8 Eos # (Auto) 0.0 Baso # (Auto) 0.0 Abs Immat Gran (auto) 0.09 H Imm/Tot Granulo (auto) 0.6 H Sodium 135 L Potassium 4.0 Chloride 100 Carbon Dioxide 31.1 Anion Gap 7.9 BUN 18.0 Creatinine 0.65 Est GFR ( Amer) >60 Est GFR (Non-Af Amer) >60 BUN/Creatinine Ratio 27.7 Glucose 104 Calcium 9.3 Total Bilirubin 0.4 AST 17 ALT 26 Alkaline Phosphatase 73 Total Protein 6.3 L Albumin 3.3 L Globulin 3.0 Albumin/Globulin Ratio 1.1 POC Glucose 199 H 98 02/27/23 11:33 WBC RBC Hgb Hct MCV MCH MCHC RDW Plt Count MPV Neut % (Auto) Lymph % (Auto) [place] % (Auto) Eos % (Auto) Baso % (Auto) Neut # (Auto) Lymph # (Auto) [place] # (Auto) Eos # (Auto) Baso # (Auto) Abs Immat Gran (auto) Imm/Tot Granulo (auto) Sodium Potassium Chloride Carbon Dioxide Anion Gap BUN Creatinine Est GFR ( Amer) Est GFR (Non-Af Amer) BUN/Creatinine Ratio Glucose Calcium Total Bilirubin AST ALT Alkaline Phosphatase Total Protein Albumin Globulin Albumin/Globulin Ratio POC Glucose 106 Preliminary micro results at discharge 02/25/23 14:12 Blood Culture Result 1 - Preliminary Blood NO GROWTH AT 36-48 HOURS. FINAL TO FOLLOW. 02/25/23 14:05 - Preliminary Blood NO GROWTH AT 36-48 HOURS. FINAL TO FOLLOW. Discharge Plan Discharge Disposition: Home, Self-Care Discharge Medications: New prednisone 20 mg tablet 20 mg PO BID 5 Days Qty: 10 0RF benzonatate 100 mg capsule 100 mg PO BID PRN (Reason: cough) Qty: 20 0RF hydroxyzine HCl 25 mg tablet 25 mg PO Q8H PRN (Reason: anxiety) Qty: 30 0RF Stiolto Respimat 2.5-2.5 mcg/actuation mist 2 inh inhalation DAILY Qty: 4 0RF Continued albuterol sulfate 90 mcg/actuation HFA aerosol inhaler 2 puff INHALATION Q6H PRN (Reason: sob) Discontinued azithromycin 250 mg tablet 250 mg PO QDAY Rx Instructions: 500 mg on day 1 02/22 then 250 mg daily for 4 days methylprednisolone 4 mg tablets,dose pack 4 mg PO DAILY Rx Instructions: medrol dose pack started 02/22 for 6 days cetirizine [24Hour Allergy] 10 mg tablet 10 mg PO DAILY Activity: resume usual activities as tolerated Diet: advance to your usual diet Forms: Portal Instructions Follow Up Appointments: Follow up appt. with Dr. Macedo on Mar.03 @ 10:30am Office #: [phone] Follow up appt. with Pulmonary medicine (Dr Stephens) in 2 weeks Office #: [phone]
[2023-02-28 11:18] LABS: Glucometer 116 mg/dL (74-106)
--- NOTE | 2023-02-28 11:50 | CM.NOTE ---
Rounds made with Dr. Hamilton. Dr. Hamilton discussed the need to continue oxygen upon discharge. Ana María verbalizes understanding. Plan for discharge today.
--- NOTE | 2023-02-28 12:17 | SWNOTE1 ---
[facility] does not accept insurance. VARGHESE sent information to [email or web address]. SW to find out how much it is out of pocket.
--- NOTE | 2023-02-28 13:26 | SWNOTE1 ---
[facility] is checking benefits.
--- NOTE | 2023-02-28 14:02 | SWNOTE1 ---
[facility] called and they are not in network. Brianne at [facility] voiced that they they did ask if anyone was in network and she was told [employer] ([employer]). VARGHESE spoke with [employer] and they voiced her insurance does not cover DME. It would be a total out of pocket cost of $97.00 per month. They would need a new script with concentrator marked. SW to speak with pt to see if she can afford out of pocket.
--- NOTE | 2023-02-28 14:30 | SWNOTE1 ---
SW spoke with pt about her insurance not covering DME supplies (oxygen). She voiced understanding and she stated she figured it was crappy insurance. SW let her know Medical Service company let SW know it was $97.00 per month. Pt is alright with this cost. SW to call Medical Service back to see what the next step is.
--- NOTE | 2023-02-28 14:35 | NUTR.NU ---
Diet education offered but refused by pt. She will try to eat small meals/snacks regularly, but I can't always (do so). Encouraged drinking nutritional supplement or meal replacement shake when she is too tired to eat. Will follow PRN.
--- NOTE | 2023-02-28 14:56 | SWNOTE1 ---
SW had to send update script to [facility]. They will then reach out to pt and SW to let us know time of tank delivery.
--- NOTE | 2023-02-28 16:41 | SWNOTE1 ---
SW and pt spoke with [employer] together and pt put a credit card on file. They will deliver the tank to hospital this evening and deliver rest of supplies tonight or tomorrow. The patient will go home with a tank that will last her until the rest is delivered, SW did ask.
--- NOTE | 2023-03-01 16:11 | CM.DCFOLLOWU ---
Person spoke with:patient How are you feeling? alright How is your pain? no pain, some shortness of breath with activity. Did you understand your discharge instructions? yes Do you have any questions about your discharge instructions? no Were you given any prescriptions at discharge? yes Were you able to get your prescriptions filled? yes Do you understand how to take your medications as ordered? yes Do you have any questions about your follow up appointment and do you plan to keep your follow up appointment? no questions and reviewed follow ups with patient Is there anything else that you would like to discuss? oxygen was delivered but they told her she can't have portability because she is private pay. Pt's daughter called oxygen company and they will bring portability. Advised her to call back if they do not. Questions/Comments/Concerns/Other:
== END 2023-02-28 18:30 | disposition home or self-care (01) | DRG 189 ==
LOC: ER 15:43 → MS 15:47
PROVIDERS: Internal Medicine; Admitting Provider Internal Medicine; Emergency Provider Emergency Medicine; Visit Provider Internal Medicine
DX: J96.01 Acute respiratory failure with hypoxia (principal); E43 Unspecified severe protein-calorie malnutrition; Z68.1 Body mass index [BMI] 19.9 or less, adult; R64 Cachexia; J43.2 Centrilobular emphysema; F41.9 Anxiety disorder, unspecified; I71.9 Aortic aneurysm of unspecified site, without rupture; R00.0 Tachycardia, unspecified; F17.210 Nicotine dependence, cigarettes, uncomplicated; Z88.0 Allergy status to penicillin; Z85.828 Personal history of other malignant neoplasm of skin; Z83.3 Family history of diabetes mellitus; Z82.49 Family history of ischemic heart disease and other diseases of the circulatory system; Z79.899 Other long term (current) drug therapy
CPT/HCPCS: 36415; 71045; 71275; 80048; 80053; 82948; 83605; 83735; 83880; 84484; 85025; 85378; 87040; 87635; 87811; 93005; 94618; 94640; 94667; 94668; 94761; 96372; 96374; 96376; 99285; 99406; G0378; J2920; J2930; Q9967; U0003

== ENCOUNTER 2023-08-18 12:40 | Outpatient (OUT) | payer OTHER, SELFPAY ==
[2023-08-18 13:15] LABS: Basophils Absolute Auto 0.1 10^3/uL (0.0-0.1); Basophils Percent Auto 1.1 % (0.2-2.0); Eosinophils Absolute Auto 0.3 10^3/uL (0.0-0.7); Eosinophils Percent Auto 2.7 % (0.9-7.0); Hemoglobin 12.4 g/dL (12.0-16.0); Immature Granulocytes Abs Auto 0.06 10^3/uL (0.00-0.03); Immature Granulocytes Pct Auto 0.6 % (0.0-0.5); Lymphocytes Absolute Auto 2.6 10^3/uL (1.2-3.8); Lymphocytes Percent Auto 25.1 % (20.5-60.0); Mean Corpuscular HGB Conc 31.8 g/dL (29.9-35.2); Mean Corpuscular Hemoglobin 27.3 pg (26.7-34.0); Mean Corpuscular Volume 85.9 fL (81.0-99.0); Mean Platelet Volume 8.8 fL (9.5-13.5); Monocytes Absolute Auto 0.9 10^3/uL (0.3-0.8); Monocytes Percent Auto 8.8 % (1.7-12.0); Neutrophils Absolute Auto 6.4 10^3/uL (1.4-6.5); Neutrophils Percent Auto 61.7 % (43.0-75.0); Platelet Count 449 10^3/uL (150-450); Red Blood Count 4.54 10^6/uL (4.20-5.40); Red Cell Distribution Width 13.2 % (11.0-15.0); White Blood Count 10.3 10^3/uL (4.0-11.0)
[2023-08-18 13:46] LABS: Thyroid Stimulating Hormone 1.814 uIU/mL (0.358-3.740)
== END 2023-08-18 12:41 | disposition home or self-care (01) ==
LOC: LAB 12:42
PROVIDERS: PCP Family Medicine; Visit Provider Family Medicine
DX: J43.2 Centrilobular emphysema (principal); J96.11 Chronic respiratory failure with hypoxia; R00.0 Tachycardia, unspecified
CPT/HCPCS: 36415; 84443; 85025; 94625

== ENCOUNTER 2023-11-16 06:56 | Outpatient (RCR) | payer OTHER, SELFPAY ==
--- NOTE | 2023-07-18 14:31 | CR1_ITS ---
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
--- NOTE | 2023-08-14 09:45 | CR1_ITS ---
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
--- NOTE | 2023-09-11 13:05 | CR1_ITS ---
[facility] Test Date: 2023-09-11 Pat Name: BOB SIMPSON Department: Room: - Gender: Female Manager Architecture: : 1960 Requested By: Wesley Stephens Order Number: [id number] Reading MD: NAPOLEON MCCORMICK Interpretive Statements Session Date: Electronically Signed On 09-11-2023 23:08:29 EDT by NAPOLEON MCCORMICK
--- NOTE | 2023-10-11 12:07 | CR1_ITS ---
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
--- NOTE | 2023-11-10 | CR1_ITS ---
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
--- NOTE | 2023-11-16 15:25 | CR1_ITS ---
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
== END 2023-11-16 14:01 | disposition home or self-care (01) ==
LOC: CR 06:56
PROVIDERS: PCP Family Medicine; Visit Provider Internal Medicine
DX: J43.2 Centrilobular emphysema (principal); J96.11 Chronic respiratory failure with hypoxia
CPT/HCPCS: 93798; 94625

== ENCOUNTER 2024-03-06 09:12 | Outpatient (OUT) | payer OTHER, SELFPAY ==
--- NOTE | 2024-03-06 09:16 | CT_ITS ---
[address] [address] Patient Name: BOB SIMPSON MRN: [id number] date: 1960 Sex: F Assigned Patient Location: CT Current Patient Location: Accession/Order Number: [id number] Exam Date: 03/06/2024 09:23 Report Date: 03/07/2024 05:53 At the request of: REX COLEMAN Procedure: CT lung screening low-dose EXAMINATION: CT lung screening low-dose HISTORY: History Of Tobacco Dependence COMPARISON: CTA chest 02/27/2023 TECHNIQUE: Axial, Coronal, and Sagittal images were created without the administration of IV contrast material. Dose reduction techniques were achieved by using automated exposure control and/or adjustment of mA and/or kV according to patient size and/or use of iterative reconstruction technique. FINDINGS: LUNGS: 12 mm spiculated mass within right lung apex. A few scattered tiny sub-5 mm nodules. Marked emphysematous changes and mild bronchiectasis. PLEURA: No mass, effusion, or pneumothorax. VASCULATURE: No abnormality. TEJ: No mass or pathologic adenopathy. MEDIASTINUM: No mass or pathologic adenopathy. CARDIAC: No enlargement, pericardial thickening, or pericardial effusion. Coronary Artery calcifications: Coronary calcifications are mild. AORTA: Dilation of ascending thoracic aorta, 4.2 cm. CHEST WALL: No mass or axillary adenopathy BONES: No bone lesion or fracture. LIMITED ABDOMEN: No suspicious findings. Limited images of the upper abdomen. OTHER: Negative. CT/CT lung screening low-dose IMPRESSION: 1. Lung-RADS Category 4B- Suspicious. Findings for which additional diagnostic testing and/ or tissue sampling is recommended. Chest CT with or without contrast, PET/CT and/ or tissue sampling depending on the * probability of malignancy and comorbidities. PET/CT may be used when there is a >= 8 mm solid component. 2. PET CT recommended for further evaluation of new spiculated 12 mm mass within right lung apex. Electronically authenticated by: JUAN DIEGO RAMIREZ Date: 03/07/2024 05:53
== END 2024-03-06 09:13 | disposition home or self-care (01) ==
LOC: CT 09:12
PROVIDERS: PCP Family Medicine; Visit Provider Internal Medicine
DX: R91.8 Other nonspecific abnormal finding of lung field (principal); F17.211 Nicotine dependence, cigarettes, in remission; Z12.2 Encounter for screening for malignant neoplasm of respiratory organs
CPT/HCPCS: 71271

== ENCOUNTER 2024-04-15 13:49 | Outpatient (OUT) | payer OTHER, SELFPAY | END 2024-04-15 13:50 | disposition home or self-care (01) | LOC: PETCT 13:49 | PROVIDERS: PCP Family Medicine; Visit Provider Internal Medicine | DX: R91.8 Other nonspecific abnormal finding of lung field (principal) | CPT/HCPCS: 78815; A9552 ==

== ENCOUNTER 2024-06-04 10:37 | Outpatient (OUT) | payer OTHER, SELFPAY ==
[2024-06-04 11:26] LABS: Alanine Aminotransferase 31 U/L (14-59); Albumin Globulin Ratio 1.3; Albumin Level 3.9 g/dL (3.4-5.0); Alkaline Phosphatase 58 U/L (46-116); Aspartate Amino Transferase 28 U/L (15-37); Bilirubin Direct 0.1 mg/dL (0.0-0.2); Bilirubin Total 0.5 mg/dL (0.2-1.0); Globulin 3.1 g/dL
== END 2024-06-04 10:38 | disposition home or self-care (01) ==
LOC: LAB 10:37
PROVIDERS: PCP Family Medicine; Visit Provider Internal Medicine
DX: B44.1 Other pulmonary aspergillosis (principal)
CPT/HCPCS: 36415; 80076

== ENCOUNTER 2024-06-12 10:10 | Outpatient (OUT) | payer OTHER, SELFPAY ==
[2024-06-12 11:14] LABS: Alanine Aminotransferase 38 U/L (14-59); Albumin Globulin Ratio 1.2; Albumin Level 3.8 g/dL (3.4-5.0); Alkaline Phosphatase 60 U/L (46-116); Aspartate Amino Transferase 34 U/L (15-37); Bilirubin Direct 0.1 mg/dL (0.0-0.2); Bilirubin Total 0.6 mg/dL (0.2-1.0); Globulin 3.1 g/dL; Total Protein 6.9 g/dL (6.4-8.2)
== END 2024-06-12 10:11 | disposition home or self-care (01) ==
LOC: LAB 10:11
PROVIDERS: PCP Family Medicine; Visit Provider Internal Medicine
DX: B44.1 Other pulmonary aspergillosis (principal)
CPT/HCPCS: 36415; 80076; 80285

== ENCOUNTER 2024-06-13 12:49 | Outpatient (OUT) | payer OTHER, SELFPAY ==
[2024-06-13 12:57] LABS: Hemoglobin 14.2 g/dL (12.0-16.0)
[2024-06-13] MEDS: ALBUTEROL SULFATE 2.5 MG/3 ML VIAL NEB IH (13:29)
--- NOTE | 2024-06-13 13:30 | RT_ITS ---
[facility] Test Date: 2024-06-13 Pat Name: BOB SIMPSON Department: Room: - Gender: Female Stem Cutter: Martha Pride RRT : 1960 Requested By: Wesley Stephens Order Number: [id number] Reading MD: Wesley Stephens Interpretive Statements Pulmonary function testing was completed according to ATS criteria. Findings were considered accurate and reproducible. Both pre- and post-bronchodilator values utilized for spirometry. Spirometry (based on pre-bronchodilator values): -FEV1/FVC: Reduced @ 47% -FEV1: Moderate-severely reduced @ 50% (1.19L) -FVC: Normal @ 82% -MLT43-18%: Reduced @ 21% -There is no significant bronchodilator response. Lung volumes by plethysmography: -RV: Increased @ 138% -TLC: Normal @ 109% -DLCO: Severe reduction @ 36% when corrected for Hb 14.2g/dL Impressions: -Spirometry suggests moderately-severe obstruction. There is no bronchodilator response. An elevated RV suggests air trapping. There is a severely reduced diffusion capacity. Overall study is compatible with COPD/emphysema. Clinical correlation required. Electronically Signed On 06-18-2024 8:21:36 EST by Wesley Stephens
== END 2024-06-13 12:50 | disposition home or self-care (01) ==
LOC: CARD 12:49
PROVIDERS: PCP Family Medicine; Visit Provider Internal Medicine
DX: J43.2 Centrilobular emphysema (principal)
CPT/HCPCS: 36415; 85018; 94060; 94726; 94729

== ENCOUNTER 2024-07-03 09:46 | Outpatient (OUT) | payer OTHER, SELFPAY | END 2024-07-03 09:47 | disposition home or self-care (01) | LOC: LAB 09:47 | PROVIDERS: PCP Family Medicine; Visit Provider Internal Medicine | DX: B44.1 Other pulmonary aspergillosis (principal) | CPT/HCPCS: 36415; 80285 ==

== ENCOUNTER 2024-07-29 10:22 | Outpatient (OUT) | payer OTHER, SELFPAY ==
[2024-07-29 11:09] LABS: Alanine Aminotransferase 30 U/L (14-59); Albumin Globulin Ratio 1.2; Albumin Level 3.7 g/dL (3.4-5.0); Alkaline Phosphatase 65 U/L (46-116); Aspartate Amino Transferase 27 U/L (15-37); Bilirubin Direct 0.1 mg/dL (0.0-0.2); Bilirubin Total 0.6 mg/dL (0.2-1.0); Globulin 3.1 g/dL; Total Protein 6.8 g/dL (6.4-8.2)
== END 2024-07-29 10:23 | disposition home or self-care (01) ==
LOC: LAB 10:25
PROVIDERS: PCP Family Medicine; Visit Provider Internal Medicine
DX: B44.1 Other pulmonary aspergillosis (principal)
CPT/HCPCS: 36415; 80076; 80189

== ENCOUNTER 2024-10-18 09:52 | Outpatient (OUT) | payer OTHER, SELFPAY ==
--- OUTSIDE RECORDS SUMMARY | 2024-07-16 08:51 | XMS_ITS ---
Author Organization [facility] [place] Address [address] [place] [address] Care Team Providers Care Lump Room Supervisor Name Role Phone Karla Macedo Primary Care Provider Wesley Ni [facility] [phone] Results Component Value Reference Range Notes Hepatic Function Panel Reviewed date:07/31/2024 07:52:13 AM Interpretation: Performing Lab: Notes/Report: ITRACONAZOLE LEVEL Reviewed date:08/05/2024 07:13:47 AM Interpretation: Performing Lab: Notes/Report: REASON FOR VISIT Voriconazole lab Medications Medication SIG (Take, Route, Frequency, Duration) Notes Start Date End Date Status Itraconazole 100 MG 2 capsules with full meal Orally BID for 30 days Voriconazole causing epistaxis 07/16/2024 Active Encounters Encounter Location Date Provider Diagnosis Pulmonary Medicine [address] [address] 07/16/2024 Wesley Stephens Pulmonary aspergillo sis B44.1 Assessments Encounter Date Diagnosis (ICD Code) Assessment Notes Treatment Notes Treatment Clinical Notes Section Notes 07/16/2024 Pulmonary aspergillosis (ICD-10 - B44.1) Plan Of Treatment Medication Medication Name Sig Start Date Stop Date Notes Itraconazole 100 MG 2 capsules with full meal Orally BID for 30 days 07/16/2024 Voriconazole causing epistaxis Voriconazole 200 MG 1 tablet Orally BID 06/25/2024 Trough was low on 150mg dose - only 0.3 Next Appt Details Provider Name:Wesley Stephens 10/23/2024 11:00:00 AM, [address] [place], [address], Progress Notes * Luiz SIMPSONine KDOB:[birth year] (63 yo F)Acc No.[id number]:07/16/2024 Patient: Ana María CASTELLANOS :1960 A ge:63 Y S ex:Female Address:[address] [place] [id number] * Refills Stop Voriconazole Tablet, 200 MG, Orally, 1 tablet, BID Start Itraconazole Capsule, 100 MG, Orally, 120 Capsule, 2 capsules with full meal, BID, 30 days, Refills=5 Subjective: * Chief Complaints: * V oriconazole lab * Medical History: * Surgical History: * Hospitalization/Major Diagno stic Procedure: * Medications: Objective: * Vitals: * Physical Examination: Assessment: * Assessment: 1. P monary aspergillosis - B44.1 Plan: * Treatment: ?LAB: Hepatic Function Panel* To be drawn 1 week after sta rting itraconazole (along with the itraconazole level) * Procedure Codes: * true * Date: Generated for Santo hurtado/Yayo/Seanitting on: 0 10/18/2024 09:54 AM EDT
--- OUTSIDE RECORDS SUMMARY | 2024-08-13 06:30 | XMS_ITS ---
Author Organization [facility] in [place] Address [address] [place] [address] Care Team Providers Care Quick Service Technician Name Role Phone Remington Karla Primary Care Provider Wesley Ni Unavailable [phone] Allergies Allergen (clinical drug ingredient) Drug/Non Drug [...] Ex-heavy c igarette smoker (20-30/day) Vital Signs Temperature 97.0 degrees Fahrenheit 08/14/19 25 Blood pressure systolic 169 mm Hg 08/14/19 25 Blood pressure diastolic 80 mm Hg 025 Heart Rate 72 /min 08/13/2024 Respiratory Rate 18 /min 08/13/2024 Height 63 in 08/13/2024 Weight 103.6 lbs 08/13/2024 BMI 18.35 kg/m2 08/13/2024 Oximetry 94 % 08/13/2024 Encounters Encounter Location Date Provider Diagnosis Pulmonary Medicine [place] [address] [place] [address] 08/13/2024 Wesley Stephens Centrilobular emphys jael J43.2 [...] respiratory failure with hypoxia (ICD-10 - J96.11) Dukb-db-szmn encounter performed with the patient to document [...] excessive secretions. Chronic respiratory failure with hypoxia Hcok-hl-horc encounter performed with the patient to document [...] intake. Other Remains off cigarettes since 02/2023. Future Test Test Name Order Date ITRACONAZOLE LEVEL 10/10/2024 CT Chest w/o contrast 10/10/2024 Hepatic Function Panel 10/10/2024 Next Appt Details Follow Up: ~2 Months, Reason : Aspergillus, COPD Provider Name:Wesley Stephens, 10/23/2024 11:00:00 AM, [address] [place], [address], Procedure Notes * Category Sub-Category Detail Notes P[place]: [place] [facility] [place] 41%-FEV1:52% (1.23L)-FVCL 97%-SYK59-95%: 16%-Bronchodilator response: None-RV: 118%-T%-DLCO: 39% Progress Notes * Ana María SIMPSON KDOB:[birth year] (63 yo F)Acc No.[id number]:08/13/2024 Follow Up Patient: Sheryl SHYANN Ana María K Provider: Lazaro Stephens DO :1960 A ge:63 Y S ex:Female Date:08/13/2024 Address:[address] [place], [place] [id number] Pcp:Karla Macedo Check In:10:25 AM ESTCheck O [...] is currently enrolled in Pulmonary Rehab at [facility]. Patient denies a cough but reports SOB with exertion. Patient states her breathing is unchanged since her last visit. Patient was referred to [facility] for a EBUS on 05/13/2024. Patient is [...] Problem List J43.2 Centrilobular emphys jael Modified On:08/08/2023/U Status:confirmed J47.9 Bronchiectasis, unco mplicated Modified On:03/12/2024/U Status:confirmed J96.11 Chronic respiratory failure with hypoxia Modified On:08/08/2023/U Status:confirmed Z87.891 History of tobacco a buse Modified On:05/08/2024/U Status:confirmed B44.1 Pulmonary aspergillo sis Modified On:05/23/2024/U Status:confirmed J44.9 COPD (chronic obstru ctive pulmonary disease) Modified On:03/03/2023/U Status:confirmed F41.9 Anxiety disorder, un specified Modified On:11/08/2023/U Status:confirmed J43.9 Emphysema, unspecifi ed Modified On:07/08/2024/U Status:confirmed * Medical History: * Surgical History: [...] cups per day. Occupation O ccupation: [employer] Pets: dog. D rugs/Alcohol: D rugs H [...] Notes to Pharmacist: Voriconazole causing epistaxisStiolto Respimat(Tiotropium [place]-Olodaterol) 2.5-2.5 MCG/ACT Aerosol Solution 2 puffs Inhalation QD Medication List reviewed and reconciled with the patientTaking Albuterol Sulfate HFA 108 (90 Base) MCG/ACT Aerosol Solution 2 puffs as needed for SOB Inhalation every 4 hrs Taking Escitalopram Oxalate 5 MG Tablet Oral Taking Itraconazole 100 MG Capsule 2 capsules with full meal Orally BID , Notes to Pharmacist: Voriconazole causing epistaxisTaking Stiolto Respimat(Tiotropium [place]-Olodaterol) 2.5-2.5 MCG/ACT Aerosol Solution 2 puffs Inhalation [...] C hronic respiratory failure with hypoxia Notes: Auda-ud-yaxq encounter performed with the patient to document [...] Procedures: P FT: Data: [place] [facility] [place]FVC[place] 41% -FEV1:52% (1.23L) -FVCL 97% -YIS36-95%: 16% -Bronchodilator response: None -RV: 118% -T% [...] of Patient Reason: M edication refused B RI ACTION PLAN Below Normal BMI Follow-up D ietary education for weight gain * Follow Up: ~ 2 Months (Reason: Aspergillus, COPD) * * Sign off status: Completed Visit Status: C HK (Check Out) true * Provider: Lazaro Stephens DO Date: 0 08/13/2024 Generated for Santo hurtado/Yayo/Seanitting on: 0 10/18/2024 09:54 AM EDT History and Physical Notes * HPI (History of Present Illness) Category Sub-Category Detail Notes Category Not es General Patient present s for a follow up for Aspergillus. Patient is currently on 2L O2 at home. DME:[facility]. Patient denies tobacco use. Patient is currently enrolled in Pulmonary Rehab at [facility]. Patient denies a cough but reports SOB with exertion. Patient states her breathing is unchanged since her last visit. Patient was referred to [facility] for a EBUS on 05/13/2024. Patient is currently on Itraconazole and denies any complaints with the medication. Patient states she is doing much better on this medication than Voriconazole. Examination Category Sub-Category Detail Notes Category Not es Exam GENERAL APPEARANCE: She appears much better now than when I originally saw her Skin Normal Eyes Ears Mouth [place] and moist Trachea Midline Chest Normal Respiratory Normal Movements, Ef fort Normal Auscultation Breath sounds are di minished but clear to auscultation Percussion Hyperresonance Cardiac Regular rate and rhy thm Gastrointestinal Normal Vascular No edema Musculoskeletal Normal posture Neurological Focal, intact Psychiatric Alert and oriented x 3. Happy Mentation/Cognition Normal Oropharynx Mallampati Class I
--- OUTSIDE RECORDS SUMMARY | 2024-10-18 09:55 | XMS_ITS | Patient Health Record ---
Author Organization The [facility] in [place] Address [address] [place] [address] Care Team Providers Care Electric [employer] Supervisor Name Role Phone Karla Macedo Primary Care Provider Rex Ni [phone] Allergies Allergen (clinical drug ingredient) Drug/Non Drug Allergy documented on EMR Reaction Allergy Type Onset Date Status Latex latex (uncoded) rash Allergy Acti ve Penicillin rash, vomiting & weakness Drug Allergy Active Results Component Value Reference Range Notes VORICONAZOLE LEVEL, BLOOD Reviewed date:07/15/2024 06:59:37 AM Interpretation: Performing Lab: Notes/Report: ITRACONAZOLE LEVEL Reviewed date:08/05/2024 07:13:47 AM Interpretation: Performing Lab: Notes/Report: Hepatic Function Panel Reviewed date:07/31/2024 07:52:13 AM Interpretation: Performing Lab: Notes/Report: LIVER PROFILE Reviewed date:06/04/2024 11:43:00 AM Interpretation: Performing Lab: Notes/Report: [facility] , Bilirubin Total 0.5 0.2-1.0 mg/dL Bilirubin Direct 0.1 0.0-0.2 mg/dL Aspartate Amino Transferase 28 15-37 U/L Alanine Aminotransferase 31 14-59 U/L Alkaline Phosphatase 58 46-116 U/L Total Protein 7.0 6.4-8.2 g/dL Albumin Level 3.9 3.4-5.0 g/dL Globulin 3.1 Albumin Globulin Ratio 1.3 Performing Lab: see note ML - [facility] LB RT pulmonary function test Reviewed date:06/18/2024 08:26:27 AM Interpretation: Performing Lab: Notes/Report: Source Facility: [facility]-[address] [place] [address] [place] [address] Respiratory Report Signed Patient: ANA MARÍA SIMPSON MR#: [id number] : 1960 Acct:[id number] Age/Sex: 63 / F ADM Date: 06/13/24 Loc: CARD Attending Dr: Rex Coleman D.O. Ordering Physician: Rex Coleman D.O. Date of Service: 06/13/24 Procedure(s): RT pulmonary function test Accession Number(s): [id number] cc: [facility] Test Date: 2024-06-13 Pat Name: ANA MARÍA SIMPSON Department: Room: - Gender: Female Shove Up: Martha Pride RRT : 1960 Requested By: Rex Coleman Order Number: [id number] Reading MD: Rex Coleman Interpretive Statements Pulmonary function testing was completed according to ATS criteria. Findings were considered accurate and reproducible. Both pre- and post-bronchodilator values utilized for spirometry. Spirometry (based on pre-bronchodilator values): -FEV1/FVC: Reduced @ 47% -FEV1: Moderate-severely reduced @ 50% (1.19L) -FVC: Normal @ 82% -UDU45-69%: Reduced @ 21% -There is no significant bronchodilator response. Lung volumes by plethysmography: -RV: Increased @ 138% -TLC: Normal @ 109% -DLCO: Severe reduction @ 36% when corrected for Hb 14.2g/dL Impressions: -Spirometry suggests moderately-severe obstruction. There is no bronchodilator response. An elevated RV suggests air trapping. There is a severely reduced diffusion capacity. Overall study is compatible with COPD/emphysema. Clinical correlation required. Electronically Signed On 06-18-2024 8:21:36 EST by Rex Coleman Dictated By: Rex Coleman D.O. Signed By: 06/18/2482006/18/24820 DD/ 125 TD/TT: Back [employer] Printing: The [place] [id number] Respiratory Report Signed Patient: ANA MARÍA SIMPSON MR#: [id number] : 1960 Acct:[id number] Age/Sex: 63 / F ADM Date: 06/13/24 Loc: CARD Attending Dr: Rex Coleman D.O. Ordering Physician: Rex Coleman D.O. Date of Service: 06/13/24 Procedure(s): RT pulmonary function test Accession Number(s): [id number] cc: [facility] Test Date: 2024-06-13 Pat Name: ANA MARÍA SIMPSON Department: 18 Room: - Gender: Female Shove Up: Martha Pride RRT : 1960 Requested By: Rex Coleman Order Number: [id number] Reading MD: Rex Coleman Interpretive Statements Pulmonary function testing was completed according to ATS criteria. Findings were considered accurate and reproducible. Both pre- and post-bronchodilator values utilized for spirometry. Spirometry (based on pre-bronchodilator values): -FEV1/FVC: Reduced @ 47% -FEV1: Moderate-severely reduced @ 50% (1.19L) -FVC: Normal @ 82% -NEJ95-13%: Reduced @ 21% -There is no significant bronchodilator response. Lung volumes by plethysmography: -RV: Increased @ 138% -TLC: Normal @ 109% -DLCO: Severe reduction @ 36% when corrected for Hb 14.2g/dL Impressions: -Spirometry suggests moderately-severe obstruction. There is no bronchodilator response. An elevated RV suggests air trapping. There is a severely reduced diffusion capacity. Overall study is compatible with COPD/emphysema. Clinical correlation required. Electronically Cassidy d On 06-18-2024 8:21:36 EST by Rex Coleman Dictated By: Rex Coleman D.O. Signed By: 06/18/2482006/18/24820 DD/ 1252 TD/TT: [employer]: LAB TESTING Reviewed date:07/16/2024 01:02:59 PM Interpretation: Performing Lab: Notes/Report: [id number] Voriconazole, Serum or Plasma [facility] , Miscellaneous Test COMMENT . 0.5 to 2.0 ug/mL is recommended for treatment of fungal Verified by repeat analysis not necessary. Test Ordered: [id number] Voriconazole, Serum/Plasma Paint Booth Operator: Chau Velasquez PhD, Phone: [phone] Reference Range: . [address] [place], [place] [id number] Voriconazole, Serum/Plasma <0.3 ug/mL BN Performed at: CB - [facility] [place] cleared or approved by the Food and Drug Administration. ug/mL (inter-quartile range 1.21 - 4.44 ug/mL) and 3.79 Performed at: - [facility] ug/mL (inter-quartile range 2.06 -6.31 ug/mL), plasma concentrations in individual patients were 2.51 characteristics determined by [facility]. It has not been The FDA has determined that such clearance or approval is This test was developed and its performance neurotoxicity has been reported in patients with Voriconazole trough concentrations above 5.5 ug/mL. [address] [place] [phone] infection, while a trough concentration greater than 0.5 ug/mL is recommended for prophylaxis. Reversible respectively. A trough serum concentration greater than The median values for the mean and maxiumum Voriconazole Paint Booth Operator: Aristeo Hinton MD, Phone: [phone] Performing Lab: see note - [facility] LB Voriconazole Reviewed date:06/24/2024 08:04:16 AM Interpretation: Performing Lab: Notes/Report: Hepatic Function Panel Reviewed date:06/12/2024 03:00:24 PM Interpretation: Performing Lab: Notes/Report: HEMOGLOBIN Reviewed date:06/18/2024 07:12:47 AM Interpretation: Performing Lab: Notes/Report: [facility] , Hemoglobin 14.2 12.0-16.0 g/dL Performing Lab: see note ML - [facility] LB LIVER PROFILE Reviewed date:06/12/2024 11:52:00 AM Interpretation: Performing Lab: Notes/Report: [facility] , Bilirubin Total 0.6 0.2-1.0 mg/dL Bilirubin Direct 0.1 0.0-0.2 mg/dL Aspartate Amino Transferase 34 15-37 U/L Alanine Aminotransferase 38 14-59 U/L Alkaline Phosphatase 60 46-116 U/L Total Protein 6.9 6.4-8.2 g/dL Albumin Level 3.8 3.4-5.0 g/dL Globulin 3.1 Albumin Globulin Ratio 1.2 Performing Lab: see note [facility] LAB TESTING Reviewed date:06/25/2024 07:53:19 AM Interpretation: Performing Lab: Notes/Report: [id number] Voriconazole, Serum or Plasma [facility] , Miscellaneous Test COMMENT . characteristics determined by [facility]. It has not been respectively. A trough serum concentration greater than ug/mL (inter-quartile range 2.06 -6.31 ug/mL), 0.5 to 2.0 ug/mL is recommended for treatment of fungal [address], [place] [id number] Test Ordered: [id number] Voriconazole, Serum/Plasma Performed at: [facility] not necessary. Voriconazole trough concentrations above 5.5 ug/mL. The median values for the mean and maxiumum Voriconazole Paint Booth Operator: Chau Velasquez PhD, Phone: [phone] Verified by repeat analysis Reference Range: . Paint Booth Operator: Aristeo Hinton MD, Phone: [phone] [address] [place], [place] [id number] ug/mL is recommended for prophylaxis. Reversible ug/mL (inter-quartile range 1.21 - 4.44 ug/mL) and 3.79 cleared or approved by the Food and Drug Administration. infection, while a trough concentration greater than 0.5 Performed at: [facility] neurotoxicity has been reported in patients with This test was developed and its performance Voriconazole, Serum/Plasma <0.3 ug/mL BN The FDA has determined that such clearance or approval is plasma concentrations in individual patients were 2.51 Performing Lab: see note [facility] Hepatic Function Panel Reviewed date:06/12/2024 10:23:10 AM Interpretation: Performing Lab: Notes/Report: CT lung screening low-dose Reviewed date:03/12/2024 06:59:19 AM Interpretation: Performing Lab: Notes/Report: Source Facility: [facility]-[address] [place] [address] [place] [address] CT Scan Report Signed Patient: ANA MARÍA SIMPSON MR#: [id number] : 1960 Acct:[id number] Age/Sex: 63 / F ADM Date: 03/06/24 Loc: CT Attending Dr: Rex Coleman D.O. Ordering Physician: Rex Coleman D.O. Date of Service: 03/06/24 Procedure(s): CT lung screening low-dose Accession Number(s): [id number] cc: Karla Macedo M.D. [place] [address] Patient Name: ANA MARÍA SIMPSON MRN: [id number] date: 1960 Sex: F Assigned Patient Location: CT Current Patient Location: Accession/Order Number: [id number] Exam Date: 03/06/2024 09:23 Report Date: 03/07/2024 05:53 At the request of: REX COLEMAN Procedure: CT lung screening low-dose EXAMINATION: CT lung screening low-dose HISTORY: History Of Tobacco Dependence COMPARISON: CTA chest 02/27/2023 TECHNIQUE: Axial, Coronal, and Sagittal images were created without the administration of IV contrast material. Dose reduction techniques were achieved by using automated exposure control and/or adjustment of mA and/or kV according to patient size and/or use of iterative reconstruction technique. FINDINGS: LUNGS: 12 mm spiculated mass within right lung apex. A few scattered tiny sub-5 mm nodules. Marked emphysematous changes and mild bronchiectasis. PLEURA: No mass, effusion, or pneumothorax. VASCULATURE: No abnormality. TEJ: No mass or pathologic adenopathy. MEDIASTINUM: No mass or pathologic adenopathy. CARDIAC: No enlargement, pericardial thickening, or pericardial effusion. Coronary Artery calcifications: Coronary calcifications are mild. AORTA: Dilation of ascending thoracic aorta, 4.2 cm. CHEST WALL: No mass or axillary adenopathy BONES: No bone lesion or fracture. LIMITED ABDOMEN: No suspicious findings. Limited images of the upper abdomen. OTHER: Negative. CT/CT lung screening low-dose IMPRESSION: 1. Lung-RADS Category 4B- Suspicious. Findings for which additional diagnostic testing and/ or tissue sampling is recommended. Chest CT with or without contrast, PET/CT and/ or tissue sampling depending on the * probability of malignancy and comorbidities. PET/CT may be used when there is a >= 8 mm solid component. 2. PET CT recommended for further evaluation of new spiculated 12 mm mass within right lung apex. Electronically authenticated by: JERALD ALVAREZ Date: 03/07/2024 05:53 Dictated By: Jerald Alvarez M.D. Signed By: 03/07/24555 DD/ 2 TD/TT: [employer]: [place] [address] CT Scan Report Signed Patient: ANA MARÍA SIMPSON MR#: [id number] : 1960 Acct:[id number] Age/Sex: 63 / F ADM Date: 03/06/24 Loc: CT Attending Dr: Rex Coleman D.O. Ordering Physician: Rex Coleman D.O. Date of Service: 03/06/24 Procedure(s): CT nabil g screening low-dose Accession Number(s): [id number] cc: Karla Macedo M.D. [place] [address] Patient Name: ANA MARÍA SIMPSON MRN: [id number] date: 1960 Sex: F Assigned Patient Location: CT Current Patient Location: Accession/Order Number: [id number] Exam Date: 09:23 Report Date: 03/07/2024 05:53 At the request of: REX COLEMAN Procedure: CT lung screening low-dose EXAMINATION: CT lung screening low-dose HISTORY: History Of Tobacco Dependence COMPARISON: CTA ches t 02/27/2023 TECHNIQUE: Axial, Coronal, and Sagittal images were created without the administration of IV contrast material. Dose reduction techniques were achieved by using automated exposure control and/or adjustment of mA and/or kV according to patient size and/ or use of iterative reconstruction technique. FINDINGS: LUNGS: 12 mm spiculated mass within right lung apex. A few scattered tiny sub-5 mm nodules. Marked emphysematous changes and mild bronchiectasis. PLEURA: No mass, effusion, or pneumothorax. VASCULATURE: No abnormality. TEJ: No mass or pathologic adenopathy. MEDIASTINUM: No mass or pathologic adenopathy. CARDIAC: No enlargement, pericardial thickening, or pericardial effusion. Coronary Artery calcifications: Coronary calcifications are mild. AORTA: Dilation of ascending thoracic aorta, 4.2 cm. CHEST WALL: No mass or axillary adenopathy BONES: No bone lesio n or fracture. LIMITED ABDOMEN: No suspicious findings. Limited images of the upper abdomen. OTHER: Negative. CT/CT lung screening low-dose IMPRESSION: 1. Lung-RADS Categor y 4B- Suspicious. Findings for which additional diagnostic testing and/ or tiss ue sampling is recommended. Chest CT with or without contrast, PET/CT and / or tissue sampling depending on the * probability of malignancy and comorbidities. PET/CT may be used when there is a >= 8 mm solid component. 2. PET CT recommende d for further evaluation of new spiculated 12 mm mass within right lung apex. Electronically authenticated by: JERALD ALVAREZ Date: 03/07/2024 05:53 Dictated By: Jerald Alvarez M.D. Signed By: 03/07/24 0556 DD/ 0553 TD/TT: [employer] Printing: CT Chest Low Dose for Screen ing* Reviewed date:03/07/2024 07:59:29 AM Interpretation: Performing Lab: Notes/Report: PET/CT Skull Base to Mid-Thi gh Reviewed date:04/22/2024 12:28:54 PM Interpretation: Performing Lab: Notes/Report: PET skull to mid thigh Reviewed date:04/23/2024 07:11:51 AM Interpretation: Performing Lab: Notes/Report: Source Facility: [place] [address] [place] [address] PET Report Signed Patient: ANA MARÍA SIMPSON MR#: [id number] : 1960 Acct:[id number] Age/Sex: 63 / F ADM Date: 04/15/24 Loc: PETCT Attending Dr: Rex Coleman D.O. Ordering Physician: Rex Coleman D.O. Date of Service: 04/15/24 Procedure(s): PET skull to mid thigh Accession Number(s): [id number] cc: Karla Macedo M.D.; Rex Coleman D.O. [place] [address] Patient Name: ANA MARÍA SIMPSON MRN: [id number] date: 1960 Sex: F Assigned Patient Location: PETCT Current Patient Location: PETCT Accession/Order Number: [id number] Exam Date: 04/15/2024 15:12 Report Date: 04/22/2024 12:20 At the request of: REX COLEMAN Procedure: PET skull to mid thigh NUCLEAR MEDICINE PET/CT HISTORY: Solitary pulmonary nodule. COMPARISON: CT chest 03/06/2024. METHOD: 12.72 mCi of F-18 FDG was administered intravenously. Blood sugar level at the time of the injection: 125. At 53 minutes from injection, PET images were obtained from the skull base through the midthigh levels in the axial plane. Reformatted images were performed in the sagittal and coronal planes. A low-dose, noncontrast CT scan was performed for attenuation correction and anatomical localization. A low dose, noncontrast and nondiagnostic CT scan was performed for attenuation correction and anatomic localization. Mediastinal blood pool SUV max 1.7 using the patient's body weight as the normalization method. FINDINGS: HEAD AND NECK: There are no metabolically active lymph nodes in the neck. CHEST: There are no metabolically active mediastinal, hilar, or axillary lymph nodes. The major airways are patent. There is no pericardial effusion. There is no evidence of abnormal metabolic uptake in the esophagus. There are emphysematous changes. There is a metabolically active right apical 8 x 7 mm pulmonary nodule with a maximum SUV of 7.4. There are no pleural effusions. There is no pneumothorax. ABDOMEN AND PELVIS: There is no evidence of abnormal metabolic activity in the liver or adrenal glands. There is no evidence of abnormal metabolic active lymph nodes in the abdomen or pelvis. There is no free fluid. There is physiologic uptake in the urinary system and bowel. There is an increased amount stool. MUSCULOSKELETAL: There is no evidence of abnormal metabolically active bony lesions. PET/PET skull to mid thigh IMPRESSION: Right apical metabolically active pulmonary nodule. Recommend tissue sampling. Emphysema. Increased amount of stool. Electronically authenticated by: MAYURI FIGUEROA Date: 04/22/2024 12:20 Dictated By: Mayuri Figueroa M.D. Signed By: 04/22/24 1223 DD/ 1220 TD/TT: [employer]: [place] [address] PET Report Signed Patient: ANA MARÍA SIMPSON MR#: [id number] : 1960 Acct:[id number] Age/Sex: 63 / F ADM Date: 04/15/24 Loc: PETCT Attending Dr: Rex Coleman D.O. Ordering Physician: Rex Coleman D.O. Date of Service: 04/15/24 Procedure(s): PET skull to mid thigh Accession Number(s): [id number] cc: Karla Macedo M.D.; Rex Coleman D.O. [place] [address] Patient Name: ANA MARÍA SIMPSON MRN: [id number] date: 1960 Sex: F Assigned Patient Location: PETCT Current Patient Location: PETCT Accession/Order Number: [id number] Exam Date: 15:12 Report Date: 04/22/2024 12:20 At the request of: REX COLEMAN Procedure: PET skull to mid thigh NUCLEAR MEDICINE PET/CT HISTORY: Solitary pulmonary nodule. COMPARISON: CT chest 03/06/2024. METHOD: 12.72 mCi of F-18 FD G was administered intravenously. Blood sugar level at the time of the injectio n: 125. At 53 minutes from injection, PET images were obtained from the skull base through the midthigh levels in the axial plane. Reformatted images were performed in the sagittal and coronal planes. A low-dose, noncontras t CT scan was performed for attenuation correction and anatomical localization. A low dose, noncontrast and nondiagnostic CT scan was performed for attenuation correction and anatomic localization. Mediastinal blood po ol SUV max 1.7 using the patient's body weight as the normalization method. FINDINGS: HEAD AND NECK: There are no metabolically active lymph nodes in the neck. CHEST: There are no metabolically active mediastinal, hilar, or axillary lymph nodes. The major airways are patent. There is no pericardial effusion. There is no evidence of abnormal metabolic uptake in the esophagus. There are emphysematous changes. There is a metabolically active right apical 8 x 7 mm pulmonary nodule with a maximum SUV of 7.4. There are no pleural effusions. There is no pneumothorax. ABDOMEN AND PELVIS: There is no evidence of abnormal metabolic activity in the liver or adrenal glands. There is no evidence of abnormal metabolic active lymph nodes in the abdomen or pelvis. There is no free fluid. There is physiologic uptake i n the urinary system and bowel. There is an increased amount stool. MUSCULOSKELETAL: The re is no evidence of abnormal metabolically active bony lesions. PET/PET skull to mid thigh IMPRESSION: Right apical metabolically active pulmonary nodule. Recommend tissue sampling. Emphysema. Increased amount of stool. Electronically authenticated by: MAYURI FIGUEROA Date: 04/22/2024 12:20 Dictated By: Mayuri Figueroa M.D. Signed By: 04/22/24 1223 DD/ 1220 TD/TT: [employer] Printing: LIVER PROFILE Reviewed date:07/30/2024 07:30:25 AM Interpretation: Performing Lab: Notes/Report: [facility] , Bilirubin Total 0.6 0.2-1.0 mg/dL Bilirubin Direct 0.1 0.0-0.2 mg/dL Aspartate Amino Transferase 27 15-37 U/L Alanine Aminotransferase 30 14-59 U/L Alkaline Phosphatase 65 46-116 U/L Total Protein 6.8 6.4-8.2 g/dL Albumin Level 3.7 3.4-5.0 g/dL Globulin 3.1 Albumin Globulin Ratio 1.2 Performing Lab: see note ML - [facility] LB LAB TESTING Reviewed date:08/06/2024 07:49:42 AM Interpretation: Performing Lab: Notes/Report: 277651 Itraconazole, Serum or Plasma [facility] , Miscellaneous Test COMMENT . Hydroxyitraconazole is an active metabolite of Reference value: Localized infection: > 0.5 ug/mL [address], [place] [address] itraconazole; the activity and serum concentrations are Systemic infection: > 1.0 ug/mL Performed at: [facility] Paint Booth Operator: Aristeo Hinton MD, Phone: [phone] Reference Range: . This test was developed and its performance characteristics Hydroxyitraconazole 2.1 ug/mL BN similar to parent drug. Test Ordered: [id number] Itraconazole and Mtb, S/P determined by [facility]. It has not been cleared or Paint Booth Operator: Chau Velasquez PhD, Phone: [phone] Itraconazole 1.3 ug/mL BN Therapeutic range has not been established. Performed at: - [facility] approved by the Food and Drug Administration. [address], [place] [address] Reference Range: . Performing Lab: see note LC - [facility] LB Reason For Referral Reason New PET + nodule, pl ease assess for interventional pulmonology biopsy Diagnosis 1 Multiple pulmonary n odules (R91.8) Referral Organization [facility] Referring Provider First Name Rex Referring Provider Last Name Kat Referring Provider Speciality Pulmonolog y Referred Provider Jaden Perez Referred Provider Specialty Pulmonary Di seases General Notes Sunny Morrell 04/23 09:16:04 AM >Images pushed to [facility] via PACS., Sunny Morrell 05/27/2024 10:45:20 AM >Consult notes/op notes and Labs received via fax. Scanned to . Clinical Notes Sunny Morrell 04/23 09:48:14 AM >Referral faxed to [facility]-'s office., Sunny Morrell 04/23/2024 12:23:40 PM >Patient is scheduled for 06/06/2024 at 12:30 per Sia at 's office. Patient is aware of the appt. date and time. Referral Priority Routine Referral Appointment Date 06/06/2024 Medications Medication SIG (Take, Route, Frequency, Duration) [...] Tobacco non-user Ex-heavy c igarette smoker (20-30/day) Problems Problem Type SNOMED Code ICD Code Onset Dates Problem Status W/U Status Risk Notes Problem Anxiety disorder (465222388) Anxiety disorder, unspecified (F41.9) Active confirmed Problem Centrilobular emphysema (59332599) Centrilobular emphysema (J43.2) Active confirmed Problem 35610244 Emphysema, unspecified (J43.9) Active confirmed Problem Bronchiolectasis (74122168) Bronchiectasis, uncomplicated (J47.9) Active confirmed Problem Chronic respiratory failure (17780646) Chronic respiratory failure with hypoxia (J96.11) Active confirmed Problem COPD - Chronic obstructive pulmonary disease (91649401) COPD (chronic obstructive pulmonary disease) (J44.9) Active confirmed Problem Ex-tobacco user (finding) (902437043) History of tobacco abuse (Z87.891) Active confirmed Problem Pulmonary aspergillosis (6928587) Pulmonary aspergillosis (B44.1) Active confirmed Vital Signs Heart Rate 72 /min 08/13/2024 Temperature 97.0 degrees Fahrenheit 08/13/2024 Respiratory Rate 18 /min 08/13/2024 Oximetry 94 % 08/13/2024 Blood pressure diastolic 80 mm Hg 08/13/2024 Height 63 in 08/13/2024 Blood pressure systolic 169 mm Hg 08/13/2024 Weight 103.6 lbs 08/13/2024 BMI 18.35 kg/m2 08/13/2024 Encounters Encounter Location Date Provider Diagnosis [facility] [address] [place] [address] 03/12/2024 Rex Coleman Centrilobular emphys jael J43.2 ; Multiple pulmonary nodules R91.8 ; Bronchiectasis, uncomplicated J47.9 ; Chronic respiratory failure with hypoxia J96.11 ; Nicotine dependence, cigarettes, 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 and Underweight R63.6 [facility] [address] [place] [address] 05/08/2024 [facility] Centrilobular emphys jael J43.2 ; Multiple pulmonary nodules R91.8 ; Bronchiectasis, uncomplicated J47.9 ; Chronic respiratory failure with hypoxia J96.11 ; History of tobacco abuse Z87.891 and Underweight R63.6 [facility] [address] [facility] [place] [address] 08/13/2024 [facility] Centrilobular emphys jael J43.2 ; Pulmonary aspergillosis B44.1 ; Bronchiectasis, uncomplicated J47.9 ; Chronic respiratory failure with hypoxia J96.11 ; History of tobacco abuse Z87.891 and Underweight R63.6 [facility] [address] [facility] [place] [address] 11/08/2023 [facility] Centrilobular emphys jael J43.2 ; Chronic respiratory failure with hypoxia J96.11 ; Nicotine dependence, cigarettes, 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 and Underweight R63.6 [facility] [address] [facility] [place] [address] 03/07/2024 [facility] [address] [facility] [place] [address] 03/18/2024 [facility] [address] [facility] [place] [address] 04/01/2024 [facility] [address] [facility] [place] [address] 04/01/2024 [facility] [address] [facility] [place] [address] 04/18/2024 [facility] Multiple pulmonary nodules R91.8 Pulmonary [facility] [address] [facility] [place] [address] 05/09/2024 [facility] [address] [facility] [place] [address] 05/23/2024 [facility] Pulmonary aspergillo sis B44.1 Pulmonary [facility] [address] [facility] [place] [address] 05/30/2024 [facility] Pulmonary aspergillo sis B44.1 Pulmonary [facility] [address] [facility] [place] [address] 06/04/2024 [facility] Pulmonary aspergillo sis B44.1 [facility] [place] [address] [facility] [place] [address] 06/12/2024 [facility] [place] [address] [facility] [place] [address] 06/25/2024 [facility] Pulmonary aspergillo sis B44.1 [facility] [place] [address] [facility] [place] [address] 07/01/2024 [facility] [place] [address] [facility] [place] [address] 07/08/2024 [facility] [place] [address] [facility] [place] [address] 07/16/2024 [facility] Pulmonary aspergillo sis B44.1 [facility] [place] [address] [facility] [place] [address] 08/06/2024 [facility] Assessments Encounter Date Diagnosis (ICD Code) Assessment Notes Treatment Notes Treatment Clinical Notes Section Notes 11/08/2023 Centrilobular emphysema (ICD-10 - J43.2) Stiolto > Anoro = Trelegy (had palpitations). She voices that her breathing is well. She notes that each inhaler has a little quirk or side effect, but overall after being consistently on Stiolto, she voices improvement in breathing without requiring any albuterol use. She is participating with pulmonary rehabilitation and notices improved stamina. She is doing great. Discussed in future she could be an EBV candidate, but for now, will continue with her current treatment plan. Refilled albuterol & Stioltol. F/U 6 months or sooner PRN. 11/08/2023 Chronic respiratory failure with hypoxia (ICD-10 - J96.11) Gtma-ln-jkiv encounter performed with the patient to document continued need for supplemental oxygen (O2). -Flow & directions: 2L/min O2 acitivty & HS -Patient voices adherence to recommended usage: Yes -Symptom control on O2: Improved dyspnea control -Counseled patient not begin, restart, or continue [...] point of requiring O2. -Recommendations: Continue O2 as she is doing. 05/08/2024 Centrilobular emphysema (ICD-10 - J43.2) Stiolto > Anoro = Trelegy (had palpitations). Her breathing remains excellently controlled on Stiolto without any adverse effects, nor any exacerbations. Continue Stiolto for now. 03/12/2024 Centrilobular emphysema (ICD-10 - J43.2) Stiolto > Anoro = Trelegy (had palpitations). Appears compensated on Stiolto at this time. No exacerbations since last visit. 03/12/2024 Multiple pulmonary nodules (ICD-10 - R91.8) LDCT 03/06/2024 notes new pulmonary nodules, largest being a spiculated 12mm nodule in the RUL, also present on soft tissue windows; other nodules are 5mm and not present on soft tissue windows. The 12mm nodule is the most suspicious, and according to the [facility] solitary pulmonary nodule calculator, the risk of this nodule being cancer is 45.5%. I explained that the nodule(s) typically represent either inflammation, infection, or cancer. As the risk of malignancy for the pulmonary nodule is between 5-50%, she is a candidate for Nodify Lung Nodule Risk Assessment with Nodify CDT (and reflex Nodify XL2 test if CDT is not positive). This can help better ascertain the risk of malignancy and assist with need for further testing vs. monitoring. Additionally, a PET is necessary to evaluate the activity of the 12mm nodule; the 5mm nodules are too small for any FDG uptake. Discussed with patient the plan of care is dependent on the results. If PET is negative and Nodify has lower risk, then the nodules will be monitored closely, with a F/U chest CT in ~3 months. If PET is positive, then my suspicion for lung cancer is much greater and I would recommend a biopsy. She has significant surrounding emphysematous changes and a high risk of perioperative pneumothorax. She would require at a minimum bronchoscopy with fluoroscopy. I recommend referral to interventional pulmonology for bronchoscopic biopsies - they have more tools available to get her an answer (e.g. radioprobe) than I have here that have an increased chance of a positive tissue diagnosis. She voiced agreement. She stated she is fine with me giving her the results over the phone and not scheduling another F/U appointment. She is to keep her 05/08/2024 appointment. 08/13/2024 Centrilobular emphysema (ICD-10 - J43.2) Stiolto [...] F/U with patient after that to review 04/18/2024 Multiple pulmonary nodules (ICD-10 - R91.8) 05/23/2024 Pulmonary aspergillosis (ICD-10 - B44.1) 05/30/2024 Pulmonary aspergillosis (ICD-10 - B44.1) 06/04/2024 Pulmonary aspergillosis (ICD-10 - B44.1) 06/25/2024 Pulmonary aspergillosis (ICD-10 - B44.1) 07/16/2024 Pulmonary aspergillosis (ICD-10 - B44.1) 08/13/2024 Bronchiectasis, uncomplicated (ICD-10 - J47.9) Incidental finding on LDCT 03/06/2024. No significant complaint of cough or excessive secretions. 03/12/2024 Bronchiectasis, uncomplicated (ICD-10 - J47.9) Incidental finding on LDCT 03/06/2024. Appears asymptomatic. 05/08/2024 Multiple pulmonary nodules (ICD-10 - R91.8) New nodules on LDCT 03/06/2024 compared to 02/27/2023, most suspicious a spiculated 12mm nodule in RUL @ 45.5% risk of malignancy according to [facility] model. Nodify CDT did not identify any auto-antibodies, but Janeen XL2 remained at an indefinite risk which reflexed back to ~46% risk of malignancy. PET 04/15/2024 identified this suspicious nodule as FDG avid, with SUV 7.4. This remains cancer until proven otherwise. Patient was referred to Dr. Perez for interventional pulmonary evaluation to obtain a tissue sample - appointment with him is scheduled for tomorrow (05/09/2024). Patient asked in the event that this is cancer, can it be cut out? Her PFT from 06/20/2023 noted an FEV1 of 1.23L, which is below the typical cutoff of 1.5L to even consider a lobectomy, so if this returns positive for cancer, she is most likely looking at chemo and/or radiation. However, as she has now been off cigarettes for >14 months, and her symptoms are well-controlled on Stiolto, I recommended repeating PFT in May for a 1 year F/U to see if any additional pulmonary function has been gained from the aforementioned interventions. She voiced agreement. Will have her return in 3 months (or sooner if needed) for close F/U given the w/up of the PET positive pulmonary nodule. 05/08/2024 Bronchiectasis, uncomplicated (ICD-10 - J47.9) Incidental finding on LDCT 03/06/2024. Remains asymptomatic for any daily productive cough. 11/08/2023 Nicotine dependence, cigarettes, in remission (ICD-10 - F17.211) Remains off cigarettes since 02/2023. LDCT due 02/2024. 11/08/2023 Underweight (ICD-10 - R63.6) Remains underweight. Continue healthy calorie intake 05/08/2024 Chronic respiratory failure with hypoxia (ICD-10 - J96.11) Rxqc-kw-ovch encounter performed with the patient to document continued need for supplemental oxygen (O2). -Flow & directions: 2L/min O2 acitivty & HS -Patient voices adherence to recommended usage: Yes, at nighttime. She is not requiring it during the day. -Symptom control on O2: Improved dyspnea control -Counseled patient not begin, restart, or continue smoking, around the O2 due to risk of fire which could result in damage to the O2 tanks & lines, smoke inhalation and flame damage to the airway, significant nagy, potential , property damage, and potential harm & to bystanders. Additionally, counseled it is not quahc to begin, restart, or continue smoking given the underlying pulmonary disease that led to the point of requiring O2. -Recommendations: For now, patient will continue O2 @ HS. A risk post-op would be to develop hypoxia - she will already have supplemental O2 available in the event this unfortunately occurs. 03/12/2024 Chronic respiratory failure with hypoxia (ICD-10 - J96.11) Uygl-jf-bcsy encounter performed with the patient to document continued need for supplemental oxygen (O2). -Flow & directions: 2L/min O2 acitivty & HS -Patient voices adherence to recommended usage: Yes -Symptom control on O2: Improved dyspnea control -Counseled patient not begin, restart, or continue [...] the point of requiring O2. -Recommendations: Continue O2. 08/13/2024 Chronic respiratory failure with hypoxia (ICD-10 - J96.11) Fkxg-qu-jypf encounter performed with the patient to document [...] -Recommendations: Continue O2 @ HS as directed 08/13/2024 History of tobacco abuse (ICD-10 - Z87.891) 1ppd x 50 years, quit 02/26/2023 She continues to improve since she stopped smoking. No LDCT d/t aspergillus/nodule s. 03/12/2024 Nicotine dependence, cigarettes, in remission (ICD-10 - F17.211) Remains off cigarettes since 02/2023. 05/08/2024 History of tobacco abuse (ICD-10 - Z87.891) 1ppd x 50 years, quit 02/26/2023 Patient has remained off cigarettes for over 14 months. She was lauded for her continued efforts. LDCT on indefinite hold d/t w/up for suspicious RUL nodule. 05/08/2024 Underweight (ICD-10 - R63.6) Remains underweight, but appears well for this particular patient. Continue healthy calorie intake. 03/12/2024 Underweight (ICD-10 - R63.6) Remains underweight. Continue healthy calorie intake. 08/13/2024 Underweight (ICD-10 - R63.6) She is gaining weight - appears more healthy today. Continue good diet and healthy calorie intake. 05/08/2024 Other Remains off cigarettes since 02/2023. 08/13/2024 Other Remains off cigarettes since 02/2023. Plan Of Treatment Future Test Test Name Order Date ITRACONAZOLE LEVEL 10/10/2024 CT Chest w/o contrast 10/10/2024 Hepatic Function Panel 10/10/2024 Next Appt Details Provider Name:Rex Coleman, 10/23/2024 11:00:00 AM, [address] [place], [address], Insurance Providers Payer Name Payer Address Payer Phone Subscriber Number Group Number Insured Name Patient Relationship to Insured Coverage Start Date Coverage End Date HAILEE SANCHEZ [address] ATTN CLAIMS [place], [place] [id number] Ana María Simpson Self - patient is the insured 4 Medical (General) History Medical History History ICD Code Centrilobular emphysema J43.2 Chronic respiratory failure with hypoxia J96.11 Ascending aorta dilatation I77.810 Multiple pulmonary nodules R91.8 Bronchiectasis, uncomplicated J47.9 Pulmonary aspergillosis B44.1 History of tobacco abuse Z87.891 Surgical History Surgery Date(Month/Year) EBUS 05/13/2024 tonsillectomy and adenoidectomy melanoma excision Hospitalization History Reason Date(Month/Year) COPD Exacerbation-[facility] 02/26/2023
--- NOTE | 2024-10-18 10:11 | CT_ITS ---
The [address] [address] Patient Name: BOB SIMPSON MRN: [id number] date: 1960 Sex: F Assigned Patient Location: LAB Current Patient Location: LAB Accession/Order Number: [id number] Exam Date: 10/18/2024 12:40 Report Date: 10/18/2024 12:48 At the request of: REX COLEMAN DO Procedure: CT chest wo con CT chest wo con 10/18/2024 10:19 AM SIGN AND SYMPTOMS: ^Other pulmonary aspergillosis, lung nodule TECHNIQUE: Multidetector CT axial slices of the chest were obtained without IV contrast. Multiplanar reformats were performed and viewed on a separate workstation and reviewed to further define anatomy and possible pathology. CT was performed with one or more of the following dose reduction techniques: Automated exposure control, adjustment of the mA and/or kV according to patient size, or use of iterative reconstruction technique. COMPARISON: 03/06/2024. FINDINGS: Lower neck: Thyroid gland within normal limits, no supraclavicle adenopathy. Vessels: Atherosclerotic changes are noted in the thoracic aorta, origins of great vessels, and coronary arteries. There is mild prominence of the ascending thoracic aorta measuring 4.4 cm in greatest transverse dimension. This is unchanged. Mediastinum and Joselin: Within normal limits. Heart: Normal size. No pericardial effusion. Airways: Within normal limits Lungs: Emphysematous changes are noted throughout the lung parenchyma. There is a similar 14 mm spiculated lesion in the right lung apex. No significant interval change. There is chronic scarring in the lung bases. There is a 3 mm noncalcified nodule in the right upper lobe on series 4 image 34. Pleura: Within normal limits. Chest Wall: Within normal limits. Upper Abdomen: Within normal limits. Bones: Within normal limits. CT/CT chest wo con IMPRESSION: There is a similar 14 mm spiculated lesion in the right lung apex. No significant interval change. Emphysematous changes are noted throughout the lung parenchyma. There is mild prominence of the ascending thoracic aorta measuring 4.4 cm in greatest transverse dimension. This is unchanged. Impression dictated by: Suraj James M.D. 10/18/2024 12:48 PM Dictation Location: [place] [address] Electronically authenticated by: [id number] Y Date: 10/18/2024 12:48
[2024-10-18 10:36] LABS: Alanine Aminotransferase 40 U/L (14-59); Albumin Globulin Ratio 1.3; Albumin Level 3.9 g/dL (3.4-5.0); Alkaline Phosphatase 74 U/L (46-116); Aspartate Amino Transferase 35 U/L (15-37); Bilirubin Direct 0.2 mg/dL (0.0-0.2); Bilirubin Total 0.8 mg/dL (0.2-1.0); Total Protein 6.9 g/dL (6.4-8.2)
== END 2024-10-18 09:53 | disposition home or self-care (01) ==
LOC: LAB 09:52
PROVIDERS: PCP Family Medicine; Visit Provider Internal Medicine
DX: B44.1 Other pulmonary aspergillosis (principal); R91.8 Other nonspecific abnormal finding of lung field
CPT/HCPCS: 36415; 71250; 80076; 80189

== ENCOUNTER 2025-01-15 08:37 | Outpatient (OUT) | payer MEDICARE, OTHER, SELFPAY ==
--- OUTSIDE RECORDS SUMMARY | 2024-08-13 06:30 | XMS_ITS ---
Author Organization [facility] in [place] Address [address] [place] [address] Care Team Providers Care Station Cleaning Porter Name Role Phone Remington Karla Primary Care Provider Wesley Ni Unavailable [phone] Allergies Allergen (clinical drug ingredient) Drug/Non Drug Allergy documented on EMR Reaction Allergy Type Onset Date Status Latex latex (uncoded) rash Allergy Acti ve Penicillin rash, vomiting & weakness Drug Allergy Active REASON FOR VISIT 3 mos F/U pulmonary nodules Medications Medication SIG (Take, Route, Frequency, Duration) Notes Start Date End Date Status Stiolto Respimat 2.5-2.5 MCG/ACT 2 puffs Inhalation QD for 90 days Active Escitalopram Oxalate 5 MG Oral for 30 Days Active Itraconazole 100 MG 2 capsules with full meal Orally BID Voriconazole causing epistaxis 07/16/2024 Active Albuterol Sulfate HFA 108 (90 Base) MCG/ACT 2 puffs as needed for SOB Inhalation every 4 hrs for 90 days 03/15/2023 Active Social History Tobacco Use: Social History Observation Description Date Details (start date - stop date) Former Smoker NA - NA Tobacco Control (Standard) Question Answer Notes Tobacco use: Former smoker How long has it been since y ou last smoked? 6-12 months Additional Findings: Tobacco non-user Ex-heavy c igarette smoker (20-30/day) Vital Signs Weight 103.6 lbs 08/13/2024 Height 63 in 08/13/2024 Blood pressure systolic 169 mm Hg 08/14/19 25 Blood pressure diastolic 80 mm Hg 025 Temperature 97.0 degrees Fahrenheit 08/14/19 25 Heart Rate 72 /min 08/13/2024 Respiratory Rate 18 /min 08/13/2024 BMI 18.35 kg/m2 08/13/2024 Oximetry 94 % 08/13/2024 Encounters Encounter Location Date Provider Diagnosis Pul[facility] [place] [address] [place] [address] 08/13/2024 Wesley Stephens Centrilobular emphys jael J43.2 ; Pulmonary aspergillosis B44.1 ; Bronchiectasis, uncomplicated J47.9 ; Chronic respiratory failure with hypoxia J96.11 ; History of tobacco abuse Z87.891 and Underweight R63.6 Assessments Encounter Date Diagnosis (ICD Code) Assessment Notes Treatment Notes Treatment Clinical Notes Section Notes 08/13/2024 Centrilobular emphysema (ICD-10 - J43.2) Stiolto > Anoro = Trelegy (had palpitations). She continues to be relatively asymptomatic on Stiolto. Continue Stiolto for now. 08/13/2024 Pulmonary aspergillosis (ICD-10 - B44.1) RUL nodule returned positive for aspergillus. Voriconazole induced recurrent epistaxis, and voriconazole level never achieved therapeutic target. Voriconazole was stopped with resolution of epistaxis. Itraconazole was started - LFT are normal and itraconazole level is at target. Plan at this point: -Chest CT without contrast mid-September 2024 for a 3 month F/U after starting itraconazole (document for stability vs. increased growth of the aspergillus) -Recheck itraconazole level -Recheck LFT F/U with patient after that to review 08/13/2024 Bronchiectasis, uncomplicated (ICD-10 - J47.9) Incidental finding on LDCT 03/06/2024. No significant complaint of cough or excessive secretions. 08/13/2024 Chronic respiratory failure with hypoxia (ICD-10 - J96.11) Nptp-je-cdro encounter performed with the patient to document continued need for supplemental oxygen (O2). -Flow & directions: 2L/min O2 acitivty & HS -Patient voices adherence to recommended usage: Yes @ HS -Symptom control on O2: Better restful sleep -Counseled patient not begin, restart, or continue smoking, around the O2 due to risk of fire which could result in damage to the O2 tanks & lines, smoke inhalation and flame damage to the airway, significant nagy, potential , property damage, and potential harm & to bystanders. Additionally, counseled it is not quach to begin, restart, or continue smoking given the underlying pulmonary disease that led to the point of requiring O2. -Recommendations : Continue O2 @ HS as directed 08/13/2024 History of tobacco abuse (ICD-10 - Z87.891) 1ppd x 50 years, quit 02/26/2023 She continues to improve since she stopped smoking. No LDCT d/t aspergillus/nodu les. 08/13/2024 Underweight (ICD-10 - R63.6) She is gaining weight - appears more healthy today. Continue good diet and healthy calorie intake. 08/13/2024 Other Remains off cigarettes since 02/2023. Plan Of Treatment Medication Medication Name Sig Start Date Stop Date Notes Itraconazole 100 MG 2 capsules with full meal Orally BID 07/16/2024 Voriconazole causing epistaxis Treatment Notes Assessment Notes Centrilobular emphysema Stiolto > Anoro = Trelegy (had palpitations). She continues to be relatively asymptomatic on Stiolto. Continue Stiolto for now. Pulmonary aspergillosis RUL nodule returned positive for aspergillus. Voriconazole induced recurrent epistaxis, and voriconazole level never achieved therapeutic target. Voriconazole was stopped with resolution of epistaxis. Itraconazole was started - LFT are normal and itraconazole level is at target. Plan at this point: -Chest CT without contrast mid-September 2024 for a 3 month F/U after starting itraconazole (document for stability vs. increased growth of the aspergillus) -Recheck itraconazole level -Recheck LFT F/U with patient after that to review Bronchiectasis, uncomplicated Incidental finding on LDCT 03/06/2024. No significant complaint of cough or excessive secretions. Chronic respiratory failure with hypoxia Axan-fa-syoy encounter performed with the patient to document continued need for supplemental oxygen (O2). -Flow & directions: 2L/min O2 acitivty & HS -Patient voices adherence to recommended usage: Yes @ HS -Symptom control on O2: Better restful sleep -Counseled patient not begin, restart, or continue smoking, around the O2 due to risk of fire which could result in damage to the O2 tanks & lines, smoke inhalation and flame damage to the airway, significant nagy, potential , property damage, and potential harm & to bystanders. Additionally, counseled it is not quach to begin, restart, or continue smoking given the underlying pulmonary disease that led to the point of requiring O2. -Recommendations: Continue O2 @ HS as directed History of tobacco abuse 1ppd x 50 years, quit 02/26/2023 She continues to improve since she stopped smoking. No LDCT d/t aspergillus/nodules. Underweight She is gaining weight - appears more healthy today. Continue good diet and healthy calorie intake. Other Remains off cigarettes since 02/2023. Next Appt Details Follow Up: ~2 Months, Reason : Aspergillus, COPD Procedure Notes * Category Sub-Category Detail Notes PFT Data: PFT 06/20/2023 - [facility] [place]-FEV1/FVC: 41%-FEV1:52% (1.23L)-FVCL 97%-XRA52-53%: 16%-Bronchodilator response: None-RV: 118%-T%-DLCO: 39% Progress Notes * Ana María SIMPSON KDOB:[birth year] (63 yo F)Acc No.[id number]:08/13/2024 Follow Up Patient: Ana María CASTELLANOS Provider: Lazaro Stephens DO :1960 A ge:63 Y S ex:Female Date:08/13/2024 Address:[address] [place], [place] [id number] Pcp:Karla Macedo Check In:10:25 AM ESTCheck O ut:11:06 AM EST Subjective: * Chief Complaints: * 3 mos F/U pulmonary nodules * HPI: G eneral: Patent is doing well since last visit. No exacerbations.? Has mild AJ, but otherwise unchanged. Remains on Stiolto with voiced benefit. She appears well for her. Regarding treatment of Aspergillus, she was started on voriconazole. She developed significant epistaxis to the point she almost required going to the ER. This is a known adverse effect of voriconazole. Labs were checked - LFT remained within the reference ranges, but voriconazole level was not therapeutic. With ongoing epistaxis from non-therapeutic levels, I had great concern about increasing the dose further which could exacerbate the epistaxis even more. I made the decision to change voriconazole to itraconazole. She is tolerating the itraconazole much better. She denies any adverse effects. LFT were once again within reference ranges.? Itraconazole level is good and at its target. MA Intake Comments:. Patient presents for a follow up for Aspergillus. Patient is currently on 2L O2 at home. DME:[facility]. Patient denies tobacco use. Patient is currently enrolled in Pulmonary Rehab at [facility]. Patient denies a cough but reports SOB with exertion. Patient states her breathing is unchanged since her last visit. Patient was referred to [facility] for a EBUS on 05/13/2024. Patient is currently on Itraconazole and denies any complaints with the medication. Patient states she is doing much better on this medication than Voriconazole. * ROS: G eneral/Constitutional: Fever or sweats d enies. C hange of appetite d enies. C hills d enies. W eight Change d enies. H EENT: Dry mouth d enies. S ore throat d enies. N osebleed s econdary to voriconazole - no further epistaxis after voriconazole was stopped. O ral Ulcers d enies. P ost Nasal Drip D enies. C ongestion D enies. H oarseness D enies. C ardiovascular: Tachycardia d enies. C hest pain d enies. P alpitations d enies. R espiratory: Chest tightness d enies. P leurisy D enies. D yspnea w ith strenuous activity. C ough d enies. H emoptysis d enies. W heezing d enies. G astrointestinal: Acid Reflux/GERD/Heartburn d enies. D ysphagia d enies. M usculoskeletal: Arthralgias/joint pain D enies. S kin: Easy bruising d enies. N eurologic: Seizures d enies. T remor d enies. H ematology: Abnormal Bleeding d enies. P sychiatric: Anxiety d enies. * Active Problem List J43.2 Centrilobular emphys jael Modified On:08/08/2023U Status:confirmed J47.9 Bronchiectasis, unco mplicated Modified On:03/12/2024 Status:confirmed J96.11 Chronic respiratory failure with hypoxia Modified On:08/08/2023U Status:confirmed Z87.891 History of tobacco a buse Modified On:05/08/2024U Status:confirmed B44.1 Pulmonary aspergillo sis Modified On:05/23/2024U Status:confirmed J44.9 COPD (chronic obstru ctive pulmonary disease) Modified On:03/03/2023U Status:confirmed F41.9 Anxiety disorder, un specified Modified On:11/08/2023 Status:confirmed J43.9 Emphysema, unspecifi ed Modified On:07/08/2024 Status:confirmed * Medical History: * Surgical History: t onsillectomy and adenoidectomy melanoma excision EBUS 05/13/2024 * Hospitalization/Major Diagno stic Procedure: C OPD Exacerbation-TBH 02/26/2023 * Family History: M other: diagnosed with Diabetes mellitus without mention of complication, type II or unspecified type, not stated as uncontrolled. B rother(s): diagnosed with Other malignant neoplasm of unspecified site. M aternal Grandfather: diagnosed with Diabetes mellitus without mention of complication, type II or unspecified type, not stated as uncontrolled. M aternal Grandmother: diagnosed with Diabetes mellitus without mention of complication, type II or unspecified type, not stated as uncontrolled. * Social History: T obacco Use: T obacco Control (Standard) T obacco use: F ormer smoker H ow long has it been since you last smoked??6-12 months A dditional Findings: Tobacco non-user E x-heavy cigarette smoker (20-30/day) Electronic Cigarette use C urrent user N o LM: Additional Tobacco Questions N umber of Years Pt Smoked: 5 0 N umber of Packs per Day: 1 When did you stop smokin02/26/2023. M iscellaneous: C affeine: 3-4 cups per day. Occupation O ccupation: [employer] Pets: dog. D rugs/Alcohol: D rugs H ave you used drugs other than those for medical reasons in the past 12 months? N o D oes the Patient have a History of Drug Abuse in the Past? N o Caffeine I ntake: 3 -4 cups per day Coffee Do you drink alcohol?: No. Do you smoke marijuana?: Denies. * Medications: T akingAlbuterol Sulfate HFA 108 (90 Base) MCG/ACT Aerosol Solution 2 puffs as needed for SOB Inhalation every 4 hrs Escitalopram Oxalate 5 MG Tablet Oral Itraconazole 100 MG Capsule 2 capsules with full meal Orally BID , Notes to Pharmacist: Voriconazole causing epistaxisStiolto Respimat(Tiotropium [place]-Olodaterol) 2.5-2.5 MCG/ACT Aerosol Solution 2 puffs Inhalation QD Medication List reviewed and reconciled with the patientTaking Albuterol Sulfate HFA 108 (90 Base) MCG/ACT Aerosol Solution 2 puffs as needed for SOB Inhalation every 4 hrs Taking Escitalopram Oxalate 5 MG Tablet Oral Taking Itraconazole 100 MG Capsule 2 capsules with full meal Orally BID , Notes to Pharmacist: Voriconazole causing epistaxisTaking Stiolto Respimat(Tiotropium [place]-Olodaterol) 2.5-2.5 MCG/ACT Aerosol Solution 2 puffs Inhalation QD Medication List reviewed and reconciled with the patient * Allergies: P enicillin: rash, vomiting & weakness - Allergylatex: rash - Allergyno[Allergies Verified] Objective: * Vitals: W t:103.6lbs, Ht: 63 in, BP:sittin/80mm Hg, Temp:Forehead:97.0F, HR:72/min, RR:18/min, BMI:18.35Index, Oxygen sat %:Room Air:94%, Ht-cm: 160.02 cm, Wt-k.99 kg. * Examination: E xam: GENERAL APPEARANCE: S he appears much better now than when I originally saw her. Skin N ormal. Mouth P ink and moist. Oropharynx M allampati Class I. Trachea M idline. Chest N ormal. Respiratory Normal M ovements, E ffort N ormal. Auscultation B reath sounds are diminished but clear to auscultation. Percussion H yperresonance. Cardiac R egular rate and rhythm. Gastrointestinal N ormal. Vascular N o edema. Musculoskeletal N ormal posture. Neurological F ocal, intact. Psychiatric A lert and oriented x3. Happy. Mentation/Cognition N ormal. Assessment: * Assessment: 1. P ulmonary aspergillosis - B44.1 (Primary) 2 . C entrilobular emphysema - J43.2 3 . B ronchiectasis, uncomplicated - J47.9 4 . C hronic respiratory failure with hypoxia - J96.11 5 . H istory of tobacco abuse - Z87.891 6 . U nderweight - R63.6 Plan: * Treatment: 2. C entrilobular emphysema Notes: Stiolto > Anoro = Trelegy (had palpitations). She continues to be relatively asymptomatic on Stiolto. Continue Stiolto for now. 3. B ronchiectasis, uncomplicated Notes: Incidental finding on LDCT 03/06/2024. No significant complaint of cough or excessive secretions. 4. C hronic respiratory failure with hypoxia Notes: Dhzt-nq-noiz encounter performed with the patient to document continued need for supplemental oxygen (O2). -Flow & directions: 2L/min O2 acitivty & HS -Patient voices adherence to recommended usage: Yes @ HS -Symptom control on O2: Better restful sleep -Counseled patient not begin, restart, or continue smoking, around the O2 due to risk of fire which could result in damage to the O2 tanks & lines, smoke inhalation and flame damage to the airway, significant nagy, potential , property damage, and potential harm & to bystanders. Additionally, counseled it is not quach to begin, restart, or continue smoking given the underlying pulmonary disease that led to the point of requiring O2. -Recommendations: Continue O2 @ HS as directed 5. H istory of tobacco abuse Notes: 1ppd x 50 years, quit 02/26/2023 She continues to improve since she stopped smoking. No LDCT d/t aspergillus/nodules. 6. U nderweight Notes: She is gaining weight - appears more healthy today. Continue good diet and healthy calorie intake.? 7. O thers Notes: Remains off cigarettes since 02/2023. * Procedures: P FT: Data: PFT 06/20/2023 - [facility] [place] -FEV1/FVC: 41% -FEV1:52% (1.23L) -FVCL 97% -LVA32-36%: 16% -Bronchodilator response: None -RV: 118% -T% -DLCO: 39%. * Procedure Codes: * Preventive Medicine: COVID Vaccination: H as patient had COVID Vaccination? COVID Vaccination N o Patient Declined Immunization Status: P neumovacc P t Refused. I nfluenza P t Refused. Screenings/Counseling: F ALL RISK SCREENING Fall Risk Assessment: N o falls in the past year Are you afraid of falling? N o T OBACCO ACTION PLAN Patient counselled on the dangers of tobacco use and urged to quit. 0 08/13/2024 Former Education on smoking effects provided?08/13/2024 Former F LEO EXCLUSION Reason: P atient Reason refused/declined Type of Patient Reason: M edication refused B NV ACTION PLAN Below Normal BMI Follow-up D ietary education for weight gain * Follow Up: ~ 2 Months (Reason: Aspergillus, COPD) * * Sign off status: Completed Visit Status: C HK (Check Out) true * Provider: Lazaro Stephens DO Date: 0 08/13/2024 Generated for Santo hurtado/Yayo/Seanitting on: 0 01/15/2025 08:41 AM EDT History and Physical Notes * HPI (History of Present Illness) Category Sub-Category Detail Notes Category Not es General Patient present s for a follow up for Aspergillus. Patient is currently on 2L O2 at home. DME:[facility]. Patient denies tobacco use. Patient is currently enrolled in Pulmonary Rehab at [facility]. Patient denies a cough but reports SOB with exertion. Patient states her breathing is unchanged since her last visit. Patient was referred to [facility] for a EBUS on 05/13/2024. Patient is currently on Itraconazole and denies any complaints with the medication. Patient states she is doing much better on this medication than Voriconazole. Examination Category Sub-Category Detail Notes Category Not es Exam GENERAL APPEARANCE: She appears much better now than when I originally saw her Skin Normal Eyes Ears Mouth [place] and moist Trachea Midline Chest Normal Respiratory Normal Movements, Ef fort Normal Auscultation Breath sounds are di minished but clear to auscultation Percussion Hyperresonance Cardiac Regular rate and rhy thm Gastrointestinal Normal Vascular No edema Musculoskeletal Normal posture Neurological Focal, intact Psychiatric Alert and oriented x 3. Happy Mentation/Cognition Normal Oropharynx Mallampati Class I
--- OUTSIDE RECORDS SUMMARY | 2024-10-23 07:00 | XMS_ITS ---
Author Organization [facility] in [place] Address [address] [place] [address] Care Team Providers Care [employer]cher Name Role Phone Remington Karla Primary Care Provider Wesley Ni Unavailable [phone] Allergies Allergen (clinical drug ingredient) Drug/Non Drug Allergy documented on EMR Reaction Allergy Type Onset Date Status Latex latex (uncoded) rash Allergy Acti ve Penicillin rash, vomiting & weakness Drug Allergy Active REASON FOR VISIT 2m F/U - Aspergillosis, COPD Medications Medication SIG (Take, Route, Frequency, Duration) Notes Start Date End Date Status Itraconazole 100 MG 2 capsules with full meal Orally BID for 30 days Voriconazole causing epistaxis Active Albuterol Sulfate HFA 108 (90 Base) MCG/ACT 2 puffs as needed for SOB Inhalation every 4 hrs for 90 days 03/15/2023 Active Stiolto Respimat 2.5-2.5 MCG/ACT 2 puffs Inhalation QD for 90 days Active Escitalopram Oxalate 5 MG Oral for 30 Days Active Social History Tobacco Use: Social History Observation Description Date Details (start date - stop date) Former Smoker NA - NA Tobacco Control (Standard) Question Answer Notes Tobacco use: Former smoker How long has it been since y ou last smoked? 6-12 months Additional Findings: Tobacco non-user Ex-heavy c igarette smoker (20-30/day) Vital Signs Weight 98.0 lbs 10/23/2024 Height 63 in 10/23/2024 Blood pressure systolic 167 mm Hg 10/24/19 25 Blood pressure diastolic 88 mm Hg 025 Temperature 97.0 degrees Fahrenheit 10/24/19 25 Heart Rate 70 /min 10/23/2024 Respiratory Rate 18 /min 10/23/2024 BMI 17.36 kg/m2 10/23/2024 Oximetry 94 % 10/23/2024 Encounters Encounter Location Date Provider Diagnosis [facility] [address] [place] [address] 10/23/2024 Wesley Stephens Centrilobular emphys jael J43.2 ; Pulmonary aspergillosis B44.1 ; Bronchiectasis, uncomplicated J47.9 ; Chronic respiratory failure with hypoxia J96.11 ; History of tobacco abuse Z87.891 and Underweight R63.6 Assessments Encounter Date Diagnosis (ICD Code) Assessment Notes Treatment Notes Treatment Clinical Notes Section Notes 10/23/2024 Centrilobular emphysema (ICD-10 - J43.2) Stiolto > Anoro = Trelegy (had palpitations). She is doing well on Stiolto. Denies any exacerbations since last visit. She is participating in pulmonary rehabilitation and voices she enjoys going there. She was instructed to continue using Stiolto and to remain involved in pulmonary rehabilitation. 10/23/2024 Pulmonary aspergillosis (ICD-10 - B44.1) Biopsy-proven RUL aspergillus. Originally started on voriconazole which induced recurrent epistaxis; therapeutic levels were never reached. Voriconazole was discontinued and changed to itraconazole. Epistaxis resolved. 3 month F/U testing was done on 10/18/2024. LFT are normal ranges. Itraconazole remains at therapeutic level. CT chest 10/18/2024 compared to 03/06/2024 shows no growth - in my opinion, it has decreased slightly in size. There is no definitive timeline guidelines to stop treatment. Several sources state 6-12 weeks. Given the severity of the patient's underlying pulmonary disease, I am more apt to treat for a duration of 6 months (which is an alternative recommendation in other sources). After discussing this with the patient, she voiced agreement. In 3 months, will retest CT chest without contrast along with LFT and itraconazole level (in the event treatment needs prolonged further). Depending on CT chest findings at that time, will discuss cessation of therapy (6 months of treatment) vs. extending it out to 1 year. 10/23/2024 Bronchiectasis, uncomplicated (ICD-10 - J47.9) Incidental finding on LDCT 03/06/2024. Denies any significant chest congestion. 10/23/2024 Chronic respiratory failure with hypoxia (ICD-10 - J96.11) Fkfd-ed-edqa encounter performed with the patient to document continued need for supplemental oxygen (O2). -Flow & directions: Originally 2L/min O2 acitivty & HS -Patient voices adherence to recommended usage: Yes @ HS -Symptom control on O2: Not requiring during the day -Counseled patient not begin, restart, or continue [...] to the point of requiring O2. -Recommendations: She is doing well with O2 @ HS. Continue O2 @ HS as directed 10/23/2024 History of tobacco abuse (ICD-10 - Z87.891) 1ppd x 50 years, quit 02/26/2023 No LDCT d/t aspergillus/nodule s. 10/23/2024 Underweight (ICD-10 - R63.6) Continue healthy weight gain. 10/23/2024 Other Remains off cigarettes since 02/2023. Plan Of Treatment Medication Medication Name Sig Start Date Stop Date Notes Itraconazole 100 MG 2 capsules with full meal Orally BID for 30 days Voriconazole causing epistaxis Albuterol Sulfate HFA 108 (90 Base) MCG/ACT 2 puffs as needed for SOB Inhalation every 4 hrs for 90 days 03/15/2023 Stiolto Respimat 2.5-2.5 MCG/ACT 2 puffs Inhalation QD for 90 days Treatment Notes Assessment Notes Centrilobular emphysema Stiolto > Anoro = Trelegy (had palpitations). She is doing well on Stiolto. Denies any exacerbations since last visit. She is participating in pulmonary rehabilitation and voices she enjoys going there. She was instructed to continue using Stiolto and to remain involved in pulmonary rehabilitation. Pulmonary aspergillosis Biopsy-proven RUL aspergillus. Originally started on voriconazole which induced recurrent epistaxis; therapeutic levels were never reached. Voriconazole was discontinued and changed to itraconazole. Epistaxis resolved. 3 month F/U testing was done on 10/18/2024. LFT are normal ranges. Itraconazole remains at therapeutic level. CT chest 10/18/2024 compared to 03/06/2024 shows no growth - in my opinion, it has decreased slightly in size. There is no definitive timeline guidelines to stop treatment. Several sources state 6-12 weeks. Given the severity of the patient's underlying pulmonary disease, I am more apt to treat for a duration of 6 months (which is an alternative recommendation in other sources). After discussing this with the patient, she voiced agreement. In 3 months, will retest CT chest without contrast along with LFT and itraconazole level (in the event treatment needs prolonged further). Depending on CT chest findings at that time, will discuss cessation of therapy (6 months of treatment) vs. extending it out to 1 year. Bronchiectasis, uncomplicated Incidental finding on LDCT 03/06/2024. Denies any significant chest congestion. Chronic respiratory failure with hypoxia Sois-og-lecz encounter performed with the patient to document continued need for supplemental oxygen (O2). -Flow & directions: Originally 2L/min O2 acitivty & HS -Patient voices adherence to recommended usage: Yes @ HS -Symptom control on O2: Not requiring during the day -Counseled patient not begin, restart, or continue [...] to the point of requiring O2. -Recommendations: She is doing well with O2 @ HS. Continue O2 @ HS as directed History of tobacco abuse 1ppd x 50 years, quit 02/26/2023 No LDCT d/t aspergillus/nodules. Underweight Continue healthy weight gain. Other Remains off cigarettes since 02/2023. Future Test Test Name Order Date ITRACONAZOLE LEVEL 01/10/2025 CT Chest w/o contrast 01/10/2025 Hepatic Function Panel 01/10/2025 Next Appt Details Follow Up: 3 Months, Reason: Pulmonary aspergillosis Procedure Notes * Category Sub-Category Detail Notes PFT Data: PFT 06/20/2023 - [facility] [place]-FEV1/FVC: 41%-FEV1:52% (1.23L)-FVCL 97%-LRF58-52%: 16%-Bronchodilator response: None-RV: 118%-T%-DLCO: 39% Progress Notes * Luiz SIMPSONine KDOB:[birth year] (63 yo F)Acc No.[id number]:10/23/2024 Follow Up Patient: Ana María CASTELLANOS Provider: Lazaro Stephens DO :1960 A ge:63 Y S ex:Female Date:10/23/2024 Address:[address] [place], [place] [id number] Pcp:Karla Macedo Check In:10:52 AM ESTCheck O ut:11:31 AM EST Subjective: * Chief Complaints: * 2 m F/U - Aspergillosis, COPD * HPI: G eneral: Patient has been doing well since last visit. She denies any exacerbations of COPD. Breathing is well-controlled on Stiolto; denies any adverse effects. She is participating in pulmonary rehabilitation and voiced enjoyment going there - it gets me out of the house. She remains on itraconazole therapy and voices no adverse effects. She denies epistaxis as she had with voriconazole. Testing was done and reviewed with the patient. LFT are all within their particular reference ranges. We personally compared CT chest imaging from 10/18/2024 and LDCT from 03/06/2024. The RUL nodularity appears slightly decreased in size in my opinion. No new suspicious areas were identified. Itraconazole level resulted after patient left - it was at therapeutic level 2.7 (rec level >1) MA Intake Comments:. Patient presents for a follow-up for COPD/Aspergillosis. Patient is currently on Itraconazole daily without any complaints. Patient is not smoking. Patient is using Stiolto with benefit as well. Patient is currently enrolled in Pulmonary Rehab at [facility].Patient denies any complaints or concerns today with her breathing today. Patient recently had labs/CT Chest performed. * ROS: G eneral/Constitutional: Fever or sweats d enies. C hange of appetite d enies. C hills d enies. W eight Change d enies. H EENT: Dry mouth d enies. S ore throat d enies. N osebleed r esolved since stopping voriconazole. O ral Ulcers d enies. P ost [...] On:11/08/2023/U Status:confirmed J43.9 Emphysema, unspecifi ed Modified On:02/10/2025W/U Status:confirmed * Medical History: * Surgical History: t onsillectomy and adenoidectomy melanoma excision EBUS 05/13/2024 * Hospitalization/Major Diagno stic Procedure: C OPD Exacerbation-TBH 02/26/2023 * Family History: M other: diagnosed with Diabetes mellitus without mention of complication, type II or unspecified type, not stated as uncontrolled. B rother(s): diagnosed with Other malignant neoplasm of unspecified site. M atepema Grandfather: diagnosed with Diabetes mellitus without mention of complication, type II or unspecified type, not stated as uncontrolled. M atepema Grandmother: diagnosed with Diabetes mellitus without mention [...] cups per day. Occupation O ccupation: R [employer] Pets: dog. D rugs/Alcohol: D rugs H [...] Notes to Pharmacist: Voriconazole causing epistaxisStiolto Respimat(Tiotropium [place]-Olodaterol) 2.5-2.5 MCG/ACT Aerosol Solution 2 puffs Inhalation QD Medication List reviewed and reconciled with the patientTaking Albuterol Sulfate HFA 108 (90 Base) MCG/ACT Aerosol Solution 2 puffs as needed for SOB Inhalation every 4 hrs Taking Escitalopram Oxalate 5 MG Tablet Oral Taking Itraconazole 100 MG Capsule 2 capsules with full meal Orally BID , Notes to Pharmacist: Voriconazole causing epistaxisTaking Stiolto Respimat(Tiotropium [place]-Olodaterol) 2.5-2.5 MCG/ACT Aerosol Solution 2 puffs Inhalation QD Medication List reviewed and reconciled with the patient * Allergies: P enicillin: rash, vomiting & weakness - Allergylatex: rash - Allergyno[Allergies Verified] Objective: * Vitals: W t:98.0lbs, Ht: 63 in, BP:sittin/88mm Hg, Temp:Forehead:97.0F, HR:70/min, RR:18/min, BMI:17.36Index, Oxygen sat %:Room Air:94%, Ht-cm: 160.02 cm, Wt-k.45 kg. * Examination: E xam: GENERAL APPEARANCE: T hin. Skin N ormal. Mouth P ink and moist. Oropharynx M allampati Class I. Trachea M idline. Chest N ormal. Respiratory Normal M ovements, E ffort N ormal. Auscultation D iminished but clear breath sounds. Percussion H yperresonance. Cardiac R egular rate and rhythm. Gastrointestinal N ormal. Vascular N o edema. Musculoskeletal N ormal posture. Neurological F ocal, intact. Psychiatric A lert and oriented x3. Pleasant. Mentation/Cognition N ormal. Assessment: * Assessment: 1. P ulmonary aspergillosis - B44.1 (Primary) 2 . C entrilobular emphysema - J43.2 3 . B ronchiectasis, uncomplicated - J47.9 4 . C hronic respiratory failure with hypoxia - J96.11 5 . H istory of tobacco abuse - Z87.891 6 . U nderweight - R63.6 Plan: * Treatment: 2. C entrilobular emphysema Refill Stiolto Respimat Aerosol Solution, 2.5-2.5 MCG/ACT, 2 puffs, Inhalation, QD, 90 days, 3 each, Refills 4; R efill Albuterol Sulfate HFA Aerosol Solution, 108 (90 Base) MCG/ACT, 2 puffs as needed for SOB, Inhalation, every 4 hrs, 90 days, 3 each, Refills 4. Notes: Stiolto > Anoro = Trelegy (had palpitations). She is doing well on Stiolto. Denies any exacerbations since last visit. She is participating in pulmonary rehabilitation and voices she enjoys going there. She was instructed to continue using Stiolto and to remain involved in pulmonary rehabilitation. 3. B ronchiectasis, uncomplicated Notes: Incidental finding on LDCT 03/06/2024. Denies any significant chest congestion. 4. C hronic respiratory failure with hypoxia Notes: Eyak-ri-axcs encounter performed with the patient to document continued need for supplemental oxygen (O2). -Flow & directions: Originally 2L/min O2 acitivty & HS -Patient voices adherence to recommended usage: Yes @ HS -Symptom control on O2: Not requiring during the day -Counseled patient not begin, restart, or continue [...] to the point of requiring O2. -Recommendations: She is doing well with O2 @ HS. Continue O2 @ HS as directed 5. H istory of tobacco abuse Notes: 1ppd x 50 years, quit 02/26/2023 No LDCT d/t aspergillus/nodules. 6. U nderweight Notes: Continue healthy weight gain. 7. O thers Notes: Remains off cigarettes since 02/2023. * Procedures: P FT: Data: PFT 06/20/2023 - [facility] [place] -FEV1/FVC: 41% -FEV1:52% (1.23L) -FVCL 97% -RWU85-81%: 16% -Bronchodilator response: None -RV: 118% -T% [...] tobacco use and urged to quit. 0 10/23/2024 Former Education on smoking effects provided?10/23/2024 Former F LEO EXCLUSION Reason: P atient Reason refused/declined Type of Patient Reason: M edication refused B NE ACTION PLAN Below Normal BMI Follow-up D ietary education for weight gain * Follow Up: 3 Months (Reason: Pulmonary aspergillosis) * * Sign off status: Completed Visit Status: C HK (Check Out) true * Provider: Lazaro Stephens DO Date: 0 10/23/2024 Generated for Santo hurt[place]/Yayo/Seanitting on: 0 01/15/2025 08:42 AM EDT History and Physical Notes * HPI (History of Present Illness) Category Sub-Category Detail Notes Category Not es General Patient present s for a follow-up for COPD/Aspergillosis. Patient is currently on Itraconazole daily without any complaints. Patient is not smoking. Patient is using Stiolto with benefit as well. Patient is currently enrolled in Pulmonary Rehab at [facility].Patient denies any complaints or concerns today with her breathing today. Patient recently had labs/CT Chest performed. Examination Category Sub-Category Detail Notes Category Not es Exam GENERAL APPEARANCE: Thin Skin Normal Eyes Ears Mouth [place] and moist Trachea Midline Chest Normal Respiratory Normal Movements, Ef fort Normal Auscultation Diminished but clear breath sounds Percussion Hyperresonance Cardiac Regular rate and rhy thm Gastrointestinal Normal Vascular No edema Musculoskeletal Normal posture Neurological Focal, intact Psychiatric Alert and oriented x 3. Pleasant Mentation/Cognition Normal Oropharynx Mallampati Class I
--- OUTSIDE RECORDS SUMMARY | 2024-12-09 07:00 | XMS_ITS ---
Author Organization [facility] [place] Address [address] [place] [address] Care Team Providers Care Developmental Therapist Name Role Phone Karla Macedo Primary Care Provider Wesley Ni Unavailable [phone] Allergies Allergen (clinical drug ingredient) Drug/Non Drug Allergy documented on EMR Reaction Allergy Type Onset Date Status Latex latex (uncoded) rash Allergy Acti ve Penicillin rash, vomiting & weakness Drug Allergy Active REASON FOR VISIT Emphysema Medications Medication SIG (Take, Route, Frequency, Duration) Notes Start Date End Date Status Escitalopram Oxalate 5 MG Oral for 30 Days Active Itraconazole 100 MG 2 capsules with full meal Orally BID for 30 days Voriconazole causing epistaxis Active Stiolto Respimat 2.5-2.5 MCG/ACT 2 puffs Inhalation QD for 90 days Active Albuterol Sulfate HFA 108 (90 Base) MCG/ACT 2 puffs as needed for SOB Inhalation every 4 hrs for 90 days Active Social History Tobacco Use: Social History Observation Description Date Details (start date - stop date) Former Smoker NA - NA Tobacco Control (Standard) Question Answer Notes Tobacco use: Former smoker How long has it been since y ou last smoked? 6-12 months Additional Findings: Tobacco non-user Ex-heavy c igarette smoker (20-30/day) Vital Signs Weight 92.2 lbs 12/09/2024 Height 63 in 12/09/2024 Blood pressure systolic 175 mm Hg 12/10/19 25 Blood pressure diastolic 95 mm Hg 025 Temperature 96.9 degrees Fahrenheit 07/14/20 25 Heart Rate 80 /min 12/09/2024 Respiratory Rate 18 /min 12/09/2024 BMI 16.33 kg/m2 12/09/2024 Oximetry 96 % 12/09/2024 Encounters Encounter Location Date Provider Diagnosis [facility] [place] [address] [place] [address] 12/09/2024 Wesley Stephens Centrilobular emphys jael J43.2 ; Pulmonary aspergillosis B44.1 ; Bronchiectasis, uncomplicated J47.9 ; Chronic respiratory failure with hypoxia J96.11 ; History of tobacco abuse Z87.891 and Underweight R63.6 Assessments Encounter Date Diagnosis (ICD Code) Assessment Notes Treatment Notes Treatment Clinical Notes Section Notes 12/09/2024 Centrilobular emphysema (ICD-10 - J43.2) Stiolto > Anoro = Trelegy (had palpitations). She continues to do well with Stiolto and utilizes the strategies learned in pulmonary rehabilitation. 12/09/2024 Pulmonary aspergillosis (ICD-10 - B44.1) Biopsy-proven RUL aspergillus. Originally started on voriconazole which induced recurrent epistaxis and therapeutic levels were never reached. Voriconazole was discontinued and changed to itraconazole with resolution of epistaxis. 3 month F/U testing was done on 10/18/2024 with normal LFT and therapeutic itraconazole level. Stable to slightly decreased on CT chest 10/18/2024 compared to 03/06/2024. Discussed with patient that the treatment duration is ill-defined. Testing was originally scheduled for December 2024 for 6 month F/U, but d/t the closure of [facility] Pul[facility], I would not be able to F/U with the results immediately (until a new office is established). Patient stated she was fine remaining on itraconazole for several more months duration. Discussed concern more for checking LFT and therapeutic itraconazole level. Plan will be for patient to get LFT and itraconazole level drawn in December. I would kindly ask that her PCP review the testing and if the LFT are within the normal ranges with a therapeutic itraconazole level, she may continue the itraconazole at her current dose (refills were sent in to cover her). If LFT are critical, stop itraconazole, and can check CT chest at that time to assess for stability vs. growth. If needed, the patient can be referred to a different pulmonology office for further management. Otherwise, I would expect to see her back in ~3 months. 12/09/2024 Bronchiectasis, uncomplicated (ICD-10 - J47.9) Incidental finding on LDCT 03/06/2024. No complaints. 12/09/2024 Chronic respiratory failure with hypoxia (ICD-10 - J96.11) Mcuc-pb-dmdn encounter performed with the patient to document continued need for supplemental oxygen (O2). -Flow & directions: Originally 2L/min O2 acitivty & HS -Patient voices adherence to recommended usage: Yes @ HS -Symptom control on O2: Well-controlled -Counseled patient not begin, restart, or continue [...] the point of requiring O2. -Recommendations : No issues reported. Continue O2. 12/09/2024 History of tobacco abuse (ICD-10 - Z87.891) 1ppd x 50 years, quit 02/26/2023 No LDCT d/t aspergillus/nodu les. 12/09/2024 Underweight (ICD-10 - R63.6) Continue healthy weight gain. 12/09/2024 Other Plan Of Treatment Medication Medication Name Sig Start Date Stop Date Notes Itraconazole 100 MG 2 capsules with full meal Orally BID for 30 days Voriconazole causing epistaxis Stiolto Respimat 2.5-2.5 MCG/ACT 2 puffs Inhalation QD for 90 days Albuterol Sulfate HFA 108 (90 Base) MCG/ACT 2 puffs as needed for SOB Inhalation every 4 hrs for 90 days Treatment Notes Assessment Notes Centrilobular emphysema Stiolto > Anoro = Trelegy (had palpitations). She continues to do well with Stiolto and utilizes the strategies learned in pulmonary rehabilitation. Pulmonary aspergillosis Biopsy-proven RUL aspergillus. Originally started on voriconazole which induced recurrent epistaxis and therapeutic levels were never reached. Voriconazole was discontinued and changed to itraconazole with resolution of epistaxis. 3 month F/U testing was done on 10/18/2024 with normal LFT and therapeutic itraconazole level. Stable to slightly decreased on CT chest 10/18/2024 compared to 03/06/2024. Discussed with patient that the treatment duration is ill-defined. Testing was originally scheduled for December 2024 for 6 month F/U, but d/t the closure of [facility] Pul[facility], I would not be able to F/U with the results immediately (until a new office is established). Patient stated she was fine remaining on itraconazole for several more months duration. Discussed concern more for checking LFT and therapeutic itraconazole level. Plan will be for patient to get LFT and itraconazole level drawn in December. I would kindly ask that her PCP review the testing and if the LFT are within the normal ranges with a therapeutic itraconazole level, she may continue the itraconazole at her current dose (refills were sent in to cover her). If LFT are critical, stop itraconazole, and can check CT chest at that time to assess for stability vs. growth. If needed, the patient can be referred to a different pulmonology office for further management. Otherwise, I would expect to see her back in ~3 months. Bronchiectasis, uncomplicated Incidental finding on LDCT 03/06/2024. No complaints. Chronic respiratory failure with hypoxia Jfdu-qu-lfie encounter performed with the patient to document continued need for supplemental oxygen (O2). -Flow & directions: Originally 2L/min O2 acitivty & HS -Patient voices adherence to recommended usage: Yes @ HS -Symptom control on O2: Well-controlled -Counseled patient not begin, restart, or continue [...] to the point of requiring O2. -Recommendations: No issues reported. Continue O2. History of tobacco abuse 1ppd x 50 years, quit 02/26/2023 No LDCT d/t aspergillus/nodules. Underweight Continue healthy weight gain. Next Appt Details Follow Up: 3 Months, Reason: Procedure Notes * Category Sub-Category Detail Notes PFT Data: PFT 06/20/2023 - [facility]-FEV1/FVC: 41%-FEV1:52% (1.23L)-FVCL 97%-QRY67-82%: 16%-Bronchodilator response: None-RV: 118%-T%-DLCO: 39% Progress Notes * Ana María SIMPSON KDOB:[birth year] (63 yo F)Acc No.[id number]:12/09/2024 Follow Up Patient: Ana María CASTELLANOS Provider: Lazaro Stephens DO :1960 A ge:63 Y S ex:Female Date:12/09/2024 Address:[address] [place], [place] [id number] Pcp:Karla Macedo Check In:10:53 AM ESTCheck O ut:11:31 AM EST Subjective: * Chief Complaints: * E mphysema * HPI: G eneral: Patient states she has been feeling well since last visit.? Has no complaints, no exacerbations. Using Stiolto without adverse effects. She remains on itraconazole without any side effects. Denies any icterus, jaundice, abdominal pain. Discussed F/U plan of care d/t the closure of [facility] Pul[facility]. MA Intake Comments:. Patient presents for a follow-up for Emphysema. Patient is currently enrolled in Pulmonary Rehab. Patient denies any complaints or concerns with her breathing today. Patient is using Stiolto daily with benefit. Patient denies tobacco use. * ROS: G eneral/Constitutional: Fever or sweats d enies. C hange of appetite d enies. C hills d enies. W eight Change d enies. H EENT: Dry mouth d enies. S ore throat d enies. N osebleed n one further after stopping voriconazole. O ral Ulcers d enies. P ost Nasal Drip D enies. C ongestion D enies. H oarseness D enies. C ardiovascular: Tachycardia d enies. C hest pain d enies. P alpitations d enies. R espiratory: Dyspnea w ith exertion/strenuous activity. C ough d enies. H emoptysis d enies. W heezing d enies. G astrointestinal: Acid Reflux/GERD/Heartburn d enies. M usculoskeletal: Arthralgias/joint pain D enies. S kin: Easy bruising d enies. N eurologic: Seizures d enies. T remor d enies. H ematology: Abnormal Bleeding d enies. P sychiatric: Anxiety d enies. * Active Problem List J43.2 Centrilobular emphys jael Modified On:08/08/2023/U Status:confirmed J47.9 Bronchiectasis, unco mplicated Modified On:03/12/2024U Status:confirmed J96.11 Chronic respiratory failure with hypoxia Modified On:08/08/2023/U Status:confirmed Z87.891 History of tobacco a buse Modified On:05/08/2024/U Status:confirmed B44.1 Pulmonary aspergillo sis Modified On:05/23/2024/U Status:confirmed J44.9 COPD (chronic obstru ctive pulmonary disease) Modified On:03/03/2023/U Status:confirmed F41.9 Anxiety disorder, un specified Modified On:11/08/2023U Status:confirmed J43.9 Emphysema, unspecifi ed Modified On:07/08/2024/U [...] cups per day. Occupation O ccupation: [employer] Pets: dog. D rugs/Alcohol: D rugs H [...] Notes to Pharmacist: Voriconazole causing epistaxisStiolto Respimat(Tiotropium [place]-Olodaterol) 2.5-2.5 MCG/ACT Aerosol Solution 2 puffs Inhalation QD Medication List reviewed and reconciled with the patientTaking Albuterol Sulfate HFA 108 (90 Base) MCG/ACT Aerosol Solution 2 puffs as needed for SOB Inhalation every 4 hrs Taking Escitalopram Oxalate 5 MG Tablet Oral Taking Itraconazole 100 MG Capsule 2 capsules with full meal Orally BID , Notes to Pharmacist: Voriconazole causing epistaxisTaking Stiolto Respimat(Tiotropium [place]-Olodaterol) 2.5-2.5 MCG/ACT Aerosol Solution 2 puffs Inhalation QD Medication List reviewed and reconciled with the patient * Allergies: P enicillin: rash, vomiting & weakness - Allergylatex: rash - Allergyno[Allergies Verified] Objective: * Vitals: W t:92.2lbs, Ht: 63 in, BP:sittin/95mm Hg, Temp:Forehead:96.9F, HR:80/min, RR:18/min, BMI:16.33Index, Oxygen sat %:Room Air:96%, Ht-cm: 160.02 cm, Wt-k.82 kg. * Examination: E xam: GENERAL APPEARANCE: T hin. Skin N ormal. Mouth P ink and moist. Oropharynx M allampati Class I. Trachea M idline. Chest N ormal. Respiratory Normal M ovements, E ffort N ormal. Auscultation C lear, diminished breath sounds. Percussion H yperresonance. Cardiac R egular rate and rhythm. Gastrointestinal N ormal. Vascular N o edema. Musculoskeletal N ormal posture. Neurological F ocal, intact. Psychiatric A lert and oriented x3. Mentation/Cognition N ormal. Assessment: * Assessment: 1. [...] = Trelegy (had palpitations). She continues to do well with Stiolto and utilizes the strategies learned in pulmonary rehabilitation. 3. B ronchiectasis, uncomplicated Notes: Incidental finding on LDCT 03/06/2024. No complaints. 4. C hronic respiratory failure with hypoxia Notes: Anex-es-cfrd encounter performed with the patient to document continued need for supplemental oxygen (O2). -Flow & directions: Originally 2L/min O2 acitivty & HS -Patient voices adherence to recommended usage: Yes @ HS -Symptom control on O2: Well-controlled -Counseled patient not begin, restart, or continue [...] to the point of requiring O2. -Recommendations: No issues reported. Continue O2. 5. H istory of tobacco abuse Notes: 1ppd x 50 years, quit 02/26/2023 No LDCT d/t aspergillus/nodules. 6. U nderweight Notes: Continue healthy weight gain. * Procedures: P FT: Data: PFT 06/20/2023 - [facility] -FEV1/FVC: 41% -FEV1:52% (1.23L) -FVCL 97% -ZEH07-27%: 16% -Bronchodilator response: None -RV: 118% -T% [...] tobacco use and urged to quit. 0 12/09/2024 Former Education on smoking effects provided?12/09/2024 Former F LEO EXCLUSION Reason: P atient Reason refused/declined Type of Patient Reason: M edication refused B IL ACTION PLAN Below Normal BMI Follow-up D ietary education for weight gain * Follow Up: 3 Months * * Sign off status: Completed Visit Status: C HK (Check Out) true * Provider: Lazaro Stephens DO Date: 12/09/2024 Generated for [place] hurt[place]/Yayo/Seanitting on: 0 01/15/2025 08:41 AM EDT History and Physical Notes * HPI (History of Present Illness) Category Sub-Category Detail Notes Category Not es General Patient present s for a follow-up for Emphysema. Patient is currently enrolled in Pulmonary Rehab. Patient denies any complaints or concerns with her breathing today. Patient is using Stiolto daily with benefit. Patient denies tobacco use. Examination Category Sub-Category Detail Notes Category Not es Exam GENERAL APPEARANCE: Thin Skin Normal Eyes Ears Mouth [place] and moist Trachea Midline Chest Normal Respiratory Normal Movements, Ef fort Normal Auscultation Clear, diminished br eath sounds Percussion Hyperresonance Cardiac Regular rate and rhy thm Gastrointestinal Normal Vascular No edema Musculoskeletal Normal posture Neurological Focal, intact Psychiatric Alert and oriented x 3 Mentation/Cognition Normal Oropharynx Mallampati Class I
--- OUTSIDE RECORDS SUMMARY | 2025-01-15 08:42 | XMS_ITS | Patient Health Record ---
Author Organization The [facility] in [place] Address [address] [place] [address] Care Team Providers Care Tyre Retreader Name Role Phone Karla Macedo Primary Care Provider Rex Ni Unavailable [phone] Allergies Allergen (clinical drug ingredient) Drug/Non Drug Allergy documented on EMR Reaction Allergy Type Onset Date Status Latex latex (uncoded) rash Allergy Acti ve Penicillin rash, vomiting & weakness Drug Allergy Active Results Component Value Reference Range Notes PET/CT Skull Base to Mid-Thi gh Reviewed date:04/22/2024 12:28:54 PM Interpretation: Performing Lab: Notes/Report: CT Chest Low Dose for Screen ing* Reviewed date:03/07/2024 07:59:29 AM Interpretation: Performing Lab: Notes/Report: LIVER PROFILE Reviewed date:06/04/2024 11:43:00 AM Interpretation: Performing Lab: Notes/Report: [facility] , Bilirubin Total 0.5 0.2-1.0 mg/dL Bilirubin Direct 0.1 0.0-0.2 mg/dL Aspartate Amino Transferase 28 15-37 U/L Alanine Aminotransferase 31 14-59 U/L Alkaline Phosphatase 58 46-116 U/L Total Protein 7.0 6.4-8.2 g/dL Albumin Level 3.9 3.4-5.0 g/dL Globulin 3.1 Albumin Globulin Ratio 1.3 Performing Lab: see note ML - [facility] LB HEMOGLOBIN Reviewed date:06/18/2024 07:12:47 AM Interpretation: Performing Lab: Notes/Report: [facility] , Hemoglobin 14.2 12.0-16.0 g/dL Performing Lab: see note ML - [facility] LB RT pulmonary function test Reviewed date:06/18/2024 08:26:27 AM Interpretation: Performing Lab: Notes/Report: Source Facility: [facility]-[address] [place] [address] [place] [address] Respiratory Report Signed Patient: ANA MARÍA SIMPSON MR#: [id number] : 1960 Acct:[id number] Age/Sex: 63 / F ADM Date: 06/13/24 Loc: CARD Attending Dr: Rex Coleman D.O. Ordering Physician: Rex Coleman D.O. Date of Service: 06/13/24 Procedure(s): RT pulmonary function test Accession Number(s): [id number] cc: [facility] Test Date: 2024-06-13 Pat Name: ANA MARÍA SIMPSON Department: Room: - Gender: Female Paraprofessional Aide: Martha Pride RRT : 1960 Requested By: Rex Coleman Order Number: [id number] Reading MD: Rex Coleman Interpretive Statements Pulmonary function testing was completed according to ATS criteria. Findings were considered accurate and reproducible. Both pre- and post-bronchodilator values utilized for spirometry. Spirometry (based on pre-bronchodilator values): -FEV1/FVC: Reduced @ 47% -FEV1: Moderate-severely reduced @ 50% (1.19L) -FVC: Normal @ 82% -VHZ41-32%: Reduced @ 21% -There is no significant [...] Rex Coleman D.O. Signed By: 06/18/2482006/18/24820 DD/ 51 TD/TT: Preschool Lead Teacher: [place] [address] Respiratory Report Signed Patient: ANA MARÍA SIMPSON MR#: [id number] : 1960 Acct:[id number] Age/Sex: 63 / F ADM Date: 06/13/24 Loc: CARD Attending Dr: Rex Coleman D.O. Ordering Physician: Rex Coleman D.O. Date of Service: 06/13/24 Procedure(s): RT pulmonary function test Accession Number(s): [id number] cc: [facility] Test Date: 2024-06-13 Pat Name: ANA MARÍA SIMPSON Department: 18 Room: - Gender: Female Paraprofessional Aide: Martha Pride RRT : 1960 Requested By: Rex Coleman Order Number: [id number] Reading MD: Rex Coleman Interpretive Statements Pulmonary function testing was completed according to ATS criteria. Findings were considered accurate and reproducible. Both pre- and post-bronchodilator values utilized for spirometry. Spirometry (based on pre-bronchodilator values): -FEV1/FVC: Reduced @ 47% -FEV1: Moderate-severely reduced @ 50% (1.19L) -FVC: Normal @ 82% -ABY53-29%: Reduced @ 21% -There is no significant bronchodilator response. Lung volumes by plethysmography: -RV: Increased @ 138% -TLC: Normal @ 109% -DLCO: Severe reduct ion @ 36% when corrected for Hb 14.2g/dL Impressions: -Spirometry suggests moderately-severe obstruction. There is no bronchodilator response. An elevated RV suggests air trapping. There is a severely reduced diffusion capacity. Overall study is compatible with COPD/emphysema. Clinical correlation required. Electronically Cassidy d On 06-18-2024 8:21:36 EST by Rex Coleman Dictated By: Rex Coleman D.O. Signed By: 06/18/2482006/18/24820 DD/ 51 TD/TT: Preschool Lead Teacher: LAB TESTING Reviewed date:10/23/2024 01:32:26 PM Interpretation: Performing Lab: Notes/Report: [id number] Itraconazole, Serum or Plasma [facility] , Miscellaneous Test COMMENT . Test Ordered: [id number] Itraconazole and Mtb, S/P Itraconazole 2.7 ug/mL Reference Range: . Reference value: Localized infection: > 0.5 ug/mL Systemic infection: > 1.0 ug/mL Hydroxyitraconazole 4.4 ug/mL BN Reference Range: . This test was developed and its performance characteristics determined by [facility]. It has not been cleared or approved by the Food and Drug Administration. Therapeutic range has not been established. Hydroxyitraconazole is an active metabolite of itraconazole; the activity and serum concentrations are similar to parent drug. Performed at: [address] [id number] Ob/Gyn Doctor: Aristeo Hinton MD, Phone: [phone] Performed at: [address] [id number] Ob/Gyn Doctor: Chau Velasquez PhD, Phone: [phone] Performing Lab: see note - [facility] CT chest wo con Reviewed date:10/22/2024 10:18:39 AM Interpretation: Performing Lab: Notes/Report: Source Facility: [place] [address] CT Scan Report Signed Patient: ANA MARÍA SIMPSON MR#: [id number] : 1960 Acct:[id number] Age/Sex: 63 / F ADM Date: 10/18/24 Loc: LAB Attending Dr: Rex Coleman D.O. Ordering Physician: Rex Coleman D.O. Date of Service: 10/18/24 Procedure(s): CT chest wo con Accession Number(s): [id number] cc: Karla Macedo M.D. [place] [address] Patient Name: ANA MARÍA SIMPSON MRN: [id number] date: 1960 Sex: F Assigned Patient Location: LAB Current Patient Location: LAB Accession/Order Number: [id number] Exam Date: 10/18/2024 12:40 Report Date: 10/18/2024 12:48 At the request of: REX CLOEMAN DO Procedure: CT chest wo con CT chest wo con 10/18/2024 10:19 AM SIGN AND SYMPTOMS: Other pulmonary aspergillosis, lung nodule TECHNIQUE: Multidetector CT axial slices of the chest were obtained without IV contrast. Multiplanar reformats were performed and viewed on a separate workstation and reviewed to further define anatomy and possible pathology. CT was performed with one or more of the following dose reduction techniques: Automated exposure control, adjustment of the mA and/or kV according to patient size, or use of iterative reconstruction technique. COMPARISON: 03/06/2024. FINDINGS: Lower neck: Thyroid gland within normal limits, no supraclavicle adenopathy. Vessels: Atherosclerotic changes are noted in the thoracic aorta, origins of great vessels, and coronary arteries. There is mild prominence of the ascending thoracic aorta measuring 4.4 cm in greatest transverse dimension. This is unchanged. Mediastinum and Joselin: Within normal limits. Heart: Normal size. No pericardial effusion. Airways: Within normal limits Lungs: Emphysematous changes are noted throughout the lung parenchyma. There is a similar 14 mm spiculated lesion in the right lung apex. No significant interval change. There is chronic scarring in the lung bases. There is a 3 mm noncalcified nodule in the right upper lobe on series 4 image 34. Pleura: Within normal limits. Chest Wall: Within normal limits. Upper Abdomen: Within normal limits. Bones: Within normal limits. CT/CT chest wo con IMPRESSION: There is a similar 14 mm spiculated lesion in the right lung apex. No significant interval change. Emphysematous changes are noted throughout the lung parenchyma. There is mild prominence of the ascending thoracic aorta measuring 4.4 cm in greatest transverse dimension. This is unchanged. Impression dictated by: Suraj James M.D. 10/18/2024 12:48 PM Dictation Location: [place] [address] Electronically authenticated by: [id number] Y Date: 10/18/2024 12:48 Dictated By: Suraj James M.D. Signed By: 10/18/24 1251 DD/ 1248 TD/TT: Preschool Lead Teacher: The [address] [address] [address] Scan Report Signed Patient: ANA MARÍA SIMPSON MR#: [id number] : 1960 Acct:[id number] Age/Sex: 63 / F ADM Date: 10/18/24 Loc: LAB Attending Dr: Rex Coleman D.O. Ordering Physician: Rex Coleman D.O. Date of Service: 10/18/24 Procedure(s): CT sandhya st wo con Accession Number(s): [id number] cc: Karla Macedo M.D. The [address] [address] Patient Name: ANA MARÍA SIMPSON MRN: [id number] date: 1960 Sex: F Assigned Patient Location: LAB Current Patient Location: LAB Accession/Order Numb er: [id number] Exam Date: 10/18/2024 12:40 Report Date: 10/18/2024 12:48 At the request of: REX COLEMAN DO Procedure: CT chest wo con CT chest wo con 10/18/2024 10:19 AM SIGN AND SYMPTOMS: Other pulmonary aspergillosis, lung nodule TECHNIQUE: Multidetector CT axial slices of the chest were obtained without IV contrast. Multiplana r reformats were performed and viewed on a separate workstation and reviewed to further define anatomy and possible pathology. CT was performed with o ne or more of the following dose reduction techniques: Automated exposure control, adjustment of the mA and/or kV according to patient size, or use of iterative reconstruction technique. COMPARISON: 03/06/2024. FINDINGS: Lower neck: Thyroid gland within normal limits, no supraclavicle adenopathy. Vessels: Atherosclerotic changes are noted in the thoracic aorta, origins of great vessels, and coronary arteries. There is mild prominence of the ascending thoracic aorta measuring 4.4 cm in greatest transverse dimension. This is unchanged. Mediastinum and Joselin : Within normal limits. Heart: Normal size. No pericardial effusion. Airways: Within norm al limits Lungs: Emphysematous changes are noted throughout the lung parenchyma. There is a similar 14 mm spiculated lesion in the right lung apex. No significant interval change. The re is chronic scarring in the lung bases. There is a 3 mm noncalcified nodu le in the right upper lobe on series 4 image 34. Pleura: Within mimi l limits. Chest Wall: Within normal limits. Upper Abdomen: Withi n normal limits. Bones: Within normal limits. CT/CT chest wo con IMPRESSION: There is a similar 1 4 mm spiculated lesion in the right lung apex. No significant interval change. Emphysematous change s are noted throughout the lung parenchyma. There is mild prominence of the ascending thoracic aorta measuring 4.4 cm in greatest transverse dimension. This is unchanged. Impression dictated by: Suraj James M.D. 10/18/2024 12:48 PM Dictation Location: [place] [address] Electronically authenticated by: [id number] Y Date: 10/18/2024 12:48 Dictated By: Suraj James M.D. Signed By: 10/18/24 1251 DD/ 1248 TD/TT: Preschool Lead Teacher: CT Chest w/o contrast Reviewed date:10/22/2024 08:23:51 AM Interpretation: Performing Lab: Notes/Report: LIVER PROFILE Reviewed date:07/30/2024 07:30:25 AM Interpretation: Performing Lab: Notes/Report: [facility] , Bilirubin Total 0.6 0.2-1.0 mg/dL Bilirubin Direct 0.1 0.0-0.2 mg/dL Aspartate Amino Transferase 27 15-37 U/L Alanine Aminotransferase 30 14-59 U/L Alkaline Phosphatase 65 46-116 U/L Total Protein 6.8 6.4-8.2 g/dL Albumin Level 3.7 3.4-5.0 g/dL Globulin 3.1 Albumin Globulin Ratio 1.2 Performing Lab: see note ML - [facility] LB LAB TESTING Reviewed date:08/06/2024 07:49:42 AM Interpretation: Performing Lab: Notes/Report: [id number] Itraconazole, Serum or Plasma [facility] , Miscellaneous Test COMMENT . Test Ordered: [id number] Itraconazole and Mtb, S/P Itraconazole 1.3 ug/mL BN Reference Range: . Reference value: Localized infection: > 0.5 ug/mL Systemic infection: > 1.0 ug/mL Hydroxyitraconazole 2.1 ug/mL Reference Range: . This test was developed and its performance characteristics determined by [employer]. It has not been cleared or approved by the Food and Drug Administration. Therapeutic range has not been established. Hydroxyitraconazole is an active metabolite of itraconazole; the activity and serum concentrations are similar to parent drug. Performed at: [address] [id number] Ob/Gyn Doctor: Aristeo Hinton MD, Phone: [phone] Performed at: [address] [id number] Ob/Gyn Doctor: Chau Velasquez PhD, Phone: [phone] Performing Lab: see note [facility] Reviewed date:07/16/2024 01:02:59 PM Interpretation: Performing Lab: Notes/Report: [id number] Voriconazole, Serum or Plasma [facility] , Miscellaneous Test COMMENT . Test Ordered: [id number] Voriconazole, Serum/Plasma Voriconazole, Serum/Plasma <0.3 ug/mL Reference Range: . Verified by repeat analysis The median values for the mean and maxiumum Voriconazole plasma concentrations in individual patients were 2.51 ug/mL (inter-quartile range 1.21 - 4.44 ug/mL) and 3.79 ug/mL (inter-quartile range 2.06 -6.31 ug/mL), respectively. A trough serum concentration greater than 0.5 to 2.0 ug/mL is recommended for treatment of fungal infection, while a trough concentration greater than 0.5 ug/mL is recommended for prophylaxis. Reversible neurotoxicity has been reported in patients with Voriconazole trough concentrations above 5.5 ug/mL. This test was developed and its performance characteristics determined by [employer]. It has not been cleared or approved by the Food and Drug Administration. The FDA has determined that such clearance or approval is not necessary. Performed at: [address] [id number] Ob/Gyn Doctor: Aristeo Hinton MD, Phone: [phone] Performed at: [address] [id number] Ob/Gyn Doctor: Chau Velasquez PhD, Phone: [phone] Performing Lab: see note LC - [facility] LB Voriconazole Reviewed date:06/24/2024 08:04:16 AM Interpretation: Performing Lab: Notes/Report: Hepatic Function Panel Reviewed date:06/12/2024 03:00:24 PM Interpretation: Performing Lab: Notes/Report: LIVER PROFILE Reviewed date:06/12/2024 11:52:00 AM Interpretation: Performing Lab: Notes/Report: [facility] , Bilirubin Total 0.6 0.2-1.0 mg/dL Bilirubin Direct 0.1 0.0-0.2 mg/dL Aspartate Amino Transferase 34 15-37 U/L Alanine Aminotransferase 38 14-59 U/L Alkaline Phosphatase 60 46-116 U/L Total Protein 6.9 6.4-8.2 g/dL Albumin Level 3.8 3.4-5.0 g/dL Globulin 3.1 Albumin Globulin Ratio 1.2 Performing Lab: see note ML - [facility] LB LAB TESTING Reviewed date:06/25/2024 07:53:19 AM Interpretation: Performing Lab: Notes/Report: [id number] Voriconazole, Serum or Plasma [facility] , Miscellaneous Test COMMENT . Test Ordered: [id number] Voriconazole, Serum/Plasma Voriconazole, Serum/Plasma <0.3 ug/mL BN Reference Range: . Verified by repeat analysis The median values for the mean and maxiumum Voriconazole plasma concentrations in individual patients were 2.51 ug/mL (inter-quartile range 1.21 - 4.44 ug/mL) and 3.79 ug/mL (inter-quartile range 2.06 -6.31 ug/mL), respectively. A trough serum concentration greater than 0.5 to 2.0 ug/mL is recommended for treatment of fungal infection, while a trough concentration greater than 0.5 ug/mL is recommended for prophylaxis. Reversible neurotoxicity has been reported in patients with Voriconazole trough concentrations above 5.5 ug/mL. This test was developed and its performance characteristics determined by [employer]. It has not been cleared or approved by the Food and Drug Administration. The FDA has determined that such clearance or approval is not necessary. Performed at: [address] [id number] Ob/Gyn Doctor: Aristeo Hinton MD, Phone: [phone] Performed at: [facility] Lab[address] [id number] Ob/Gyn Doctor: Chau Velasquez PhD, Phone: [phone] Performing Lab: see note - [facility] LB Hepatic Function Panel Reviewed date:06/12/2024 10:23:10 AM Interpretation: Performing Lab: Notes/Report: PET skull to mid thigh Reviewed date:04/23/2024 07:11:51 AM Interpretation: Performing Lab: Notes/Report: Source Facility: [place] [address] PET Report Signed Patient: ANA MARÍA SIMPSON MR#: [id number] : 1960 Acct:[id number] Age/Sex: 63 / F ADM Date: 04/15/24 Loc: PETCT Attending Dr: Rex Coleman D.O. Ordering Physician: Rex Coleman D.O. Date of Service: 04/15/24 Procedure(s): PET skull to mid thigh Accession Number(s): [id number] cc: Karla Macedo M.D.; Rex Coleman D.O. [place] [address] Patient Name: ANA MARÍA SIMPSON MRN: [id number] date: 1960 Sex: F Assigned Patient Location: PETCT Current Patient Location: PETCT Accession/Order Number: [id number] Exam Date: 04/15/2024 15:12 Report Date: 04/22/2024 [...] Signed By: 04/22/24 1223 DD/ 1220 TD/TT: Preschool Lead Teacher: [place] [address] PET Report Signed Patient: ANA MARÍA SIMPSON MR#: [id number] : 1960 Acct:[id number] Age/Sex: 63 / F ADM Date: 04/15/24 Loc: PETCT Attending Dr: Rex Coleman D.O. Ordering Physician: Rex Coleman D.O. Date of Service: 04/15/24 Procedure(s): PET sk ull to mid thigh Accession Number(s): [id number] cc: Karla Macedo M.D.; Rex Coleman D.O. [place] [address] Patient Name: ANA MARÍA SIMPSON MRN: [facility]:[id number] date: 1960 Sex: F Assigned Patient Location: PETCT Current Patient Location: PETCT Accession/Order Numb er: [id number] Exam Date: 15:12 Report Date: 04/22/2024 12:20 At the request of: REX COLEMAN Procedure: PET skull to mid thigh NUCLEAR MEDICINE PET/CT HISTORY: Solitary pulmonary nodule. COMPARISON: CT chest 03/06/2024. METHOD: 12.72 mCi of F-18 FD G was administered intravenously. Blood sugar level at the time of the injectio n: 125. At 53 minutes from injection, PET images were obtained from the sk ull base through the midthigh levels in the axial plane. Reformatted images w ere performed in the sagittal and coronal planes. [...] pericardial effusion. There is no evidence of abnor mal metabolic uptake in the esophagus. There are emphysemat ous changes. There is a metabolically active right apical 8 x 7 mm pulmonary nod ule with a maximum SUV of 7.4. There [...] Signed By: 04/22/24 1223 DD/ 1220 TD/TT: Preschool Lead Teacher: CT lung screening low-dose Reviewed date:03/12/2024 06:59:19 AM Interpretation: Performing Lab: Notes/Report: Source Facility: [place] [address] CT Scan Report Signed Patient: ANA MARÍA SIMPSON MR#: [id number] : 1960 Acct:[id number] Age/Sex: 63 / F ADM Date: 03/06/24 Loc: CT Attending Dr: eRx Coleman D.O. Ordering Physician: Rex Coleman D.O. Date of Service: 03/06/24 Procedure(s): CT lung screening low-dose Accession Number(s): [id number] cc: Karla Macedo M.D. [place] [address] Patient Name: ANA MARÍA SIMPSON MRN: [id number] date: 1960 Sex: F Assigned Patient Location: CT Current Patient Location: Accession/Order Number: [id number] Exam Date: 03/06/2024 09:23 Report Date: 03/07/2024 [...] mass, effusion, or pneumothorax. VASCULATURE: No abnormality. JOSELIN: No mass or pathologic adenopathy. MEDIASTINUM: No [...] M.D. Signed By: 03/07/24555 DD/ 2 TD/TT: Preschool Lead Teacher: [place] [address] CT Scan Report Signed Patient: ANA MARÍA SIMPSON MR#: [id number] : 1960 Acct:[id number] Age/Sex: 63 / F ADM Date: 03/06/24 Loc: CT Attending Dr: Rex Coleman D.O. Ordering Physician: Rex Coleman D.O. Date of Service: 03/06/24 Procedure(s): CT nabil g screening low-dose Accession Number(s): [id number] cc: Karla Macedo M.D. [place] [address] Patient Name: ANA MARÍA SIMPSON MRN: [id number] date: 1960 Sex: F Assigned Patient Location: CT Current Patient Location: Accession/Order Numb er: [id number] Exam Date: 09:23 Report Date: 03/07/2024 05:53 At the request of: REX COLEMNA Procedure: CT lung screening low-dose EXAMINATION: CT [...] iterative reconstruction technique. FINDINGS: LUNGS: 12 mm spicula jian mass within right lung apex. A few scattered tiny sub-5 mm nodules. Marked emphysematous changes and mild bronchiectasis. PLEURA: No mass, effusion, or pneumothorax. VASCULATURE: No abnormality. JOSELIN: No mass or pathologic adenopathy. MEDIASTINUM: No [...] Signed By: 03/07/24 0556 DD/ 0553 TD/TT: Preschool Lead Teacher: Hepatic Function Panel Reviewed date:07/31/2024 07:52:13 AM Interpretation: Performing Lab: Notes/Report: ITRACONAZOLE LEVEL Reviewed date:08/05/2024 07:13:47 AM Interpretation: Performing Lab: Notes/Report: LIVER PROFILE Reviewed date:10/22/2024 10:18:41 AM Interpretation: Performing Lab: Notes/Report: [facility] , Bilirubin Total 0.8 0.2-1.0 mg/dL Bilirubin Direct 0.2 0.0-0.2 mg/dL Aspartate Amino Transferase 35 15-37 U/L Alanine Aminotransferase 40 14-59 U/L Alkaline Phosphatase 74 46-116 U/L Total Protein 6.9 6.4-8.2 g/dL Albumin Level 3.9 3.4-5.0 g/dL Globulin 3.0 Albumin Globulin Ratio 1.3 Performing Lab: see note ML - [facility] LB Hepatic Function Panel Reviewed date:10/22/2024 08:23:11 AM Interpretation: Performing Lab: Notes/Report: ITRACONAZOLE LEVEL Reviewed date:10/23/2024 01:55:42 PM Interpretation: Performing Lab: Notes/Report: VORICONAZOLE LEVEL, BLOOD Reviewed date:07/15/2024 06:59:37 AM Interpretation: Performing Lab: Notes/Report: Reason For Referral Reason New PET + nodule, pl ease assess for interventional pulmonology biopsy Diagnosis 1 Multiple pulmonary n odules (R91.8) Referral Organization [facility] Referring Provider First Name Rex Referring Provider Last Name Kat Referring Provider Speciality Pulmonolog y Referred Provider Jaden Perez Referred Provider Specialty Pulmonary Di seases General Notes Sunny Morrell 04/23 09:16:04 AM >Images pushed to [facility] via PACS., Sunny Morrell 05/27/2024 10:45:20 AM >Consult notes/op notes and Labs received via fax. Scanned to . Clinical Notes Sunny Morrell 04/23 09:48:14 AM >Referral faxed to [facility]-'s office., Sunny Morrell 04/23/2024 12:23:40 PM >Patient is scheduled for 06/06/2024 at 12:30 per Camarie at 's office. Patient is aware of [...] W/U Status Risk Notes Problem Anxiety disorder (224506702) Anxiety disorder, unspecified (F41.9) Active confirmed Problem Centrilobular emphysema (28393776) Centrilobular emphysema (J43.2) Active confirmed Problem 41540036 Emphysema, unspecified (J43.9) Active confirmed Problem Bronchiolectasis (40836970) Bronchiectasis, uncomplicated (J47.9) Active confirmed Problem Chronic respiratory failure (88770803) Chronic respiratory failure with hypoxia (J96.11) Active confirmed Problem COPD - Chronic obstructive pulmonary disease (90335670) COPD (chronic obstructive pulmonary disease) (J44.9) Active confirmed Problem Ex-tobacco user (finding) (837742394) History of tobacco abuse (Z87.891) Active confirmed Problem Pulmonary aspergillosis (0663073) Pulmonary aspergillosis (B44.1) Active confirmed Vital Signs Heart Rate 80 /min 12/09/2024 Temperature 96.9 degrees Fahrenheit 12/09/2024 Respiratory Rate 18 /min 12/09/2024 Oximetry 96 % 12/09/2024 Blood pressure diastolic 95 mm Hg 12/09/2024 Height 63 in 12/09/2024 Blood pressure systolic 175 mm Hg 12/09/2024 Weight 92.2 lbs 12/09/2024 BMI 16.33 kg/m2 12/09/2024 Encounters Encounter Location Date Provider Diagnosis [facility] [address] [place] [address] 06/12/2024 [facility] [place] [address] [place] [address] 06/25/2024 [facility] Pulmonary aspergillo sis B44.1 [facility] [address] [place] [address] 07/01/2024 [facility] [place] [address] [place] [address] 07/08/2024 [facility] [place] [address] [place] [address] 07/16/2024 [facility] Pulmonary aspergillo sis B44.1 [facility] [place] [address] [place] [facility] [address] 08/06/2024 [facility] Pulmonary [facility] [address] [place] [facility] [place] [address] 04/01/2024 [facility] [place] [address] [place] [facility] [place] [address] 04/18/2024 [facility] Multiple pulmonary nodules R91.8 [facility] [place] [address] [place] [address] 05/09/2024 [facility] [address] [place] [address] 05/23/2024 [facility] Pulmonary aspergillo sis B44.1 [facility]monary [facility] [address] [place] [address] 05/30/2024 [facility] Pulmonary aspergillo sis B44.1 [facility] [place] [address] [place] [address] 06/04/2024 [facility] Pulmonary aspergillo sis B44.1 [facility] [address] [place] [address] 03/07/2024 [facility] [address] [place] [address] 03/18/2024 [facility] [address] [place] [address] 04/01/2024 [facility] [address] [place] [address] 03/12/2024 [facility] Centrilobular emphys jael J43.2 ; Multiple pulmonary nodules R91.8 ; Bronchiectasis, uncomplicated J47.9 ; Chronic respiratory failure with hypoxia J96.11 ; Nicotine dependence, cigarettes, 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 and Underweight R63.6 [facility] [place] [address] [place] [address] 05/08/2024 [facility] Centrilobular emphys jael J43.2 ; Multiple pulmonary nodules R91.8 ; Bronchiectasis, uncomplicated J47.9 ; Chronic respiratory failure with hypoxia J96.11 ; History of tobacco abuse Z87.891 and Underweight R63.6 [facility] [place] [address] [place] [address] 08/13/2024 [facility] Centrilobular emphys jael J43.2 ; Pulmonary aspergillosis B44.1 ; Bronchiectasis, uncomplicated J47.9 ; Chronic respiratory failure with hypoxia J96.11 ; History of tobacco abuse Z87.891 and Underweight R63.6 [facility] [place] [address] [place] [address] 10/23/2024 Rex [facility] Centrilobular emphys jael J43.2 ; Pulmonary aspergillosis B44.1 ; Bronchiectasis, uncomplicated J47.9 ; Chronic respiratory failure with hypoxia J96.11 ; History of tobacco abuse Z87.891 and Underweight R63.6 [facility] [place] [address] [place] [address] 12/09/2024 Rex Samsa Centrilobular emphys jael J43.2 ; Pulmonary aspergillosis B44.1 ; Bronchiectasis, uncomplicated J47.9 ; Chronic respiratory failure with hypoxia J96.11 ; History of tobacco abuse Z87.891 and Underweight R63.6 Assessments Encounter Date Diagnosis (ICD Code) Assessment Notes Treatment Notes Treatment Clinical Notes Section Notes 05/08/2024 Centrilobular emphysema (ICD-10 - J43.2) Stiolto [...] the most suspicious, and according to the [facility] solitary pulmonary nodule calculator, the risk of [...] F/U with patient after that to review 10/23/2024 Centrilobular emphysema (ICD-10 - J43.2) Stiolto > Anoro = Trelegy (had palpitations). She is doing well on Stiolto. Denies any exacerbations since last visit. She is participating in pulmonary rehabilitation and voices she enjoys going there. She was instructed to continue using Stiolto and to remain involved in pulmonary rehabilitation. 12/09/2024 Centrilobular emphysema (ICD-10 - J43.2) Stiolto > Anoro = Trelegy (had palpitations). She continues to do well with Stiolto and utilizes the strategies learned in pulmonary rehabilitation. 04/18/2024 Multiple pulmonary nodules (ICD-10 - R91.8) 05/23/2024 Pulmonary aspergillosis (ICD-10 - B44.1) 05/30/2024 Pulmonary aspergillosis (ICD-10 - B44.1) 06/04/2024 Pulmonary aspergillosis (ICD-10 - B44.1) 06/25/2024 Pulmonary aspergillosis (ICD-10 - B44.1) 07/16/2024 Pulmonary aspergillosis (ICD-10 - B44.1) 12/09/2024 Pulmonary aspergillosis (ICD-10 - B44.1) Biopsy-proven [...] month F/U, but d/t the closure of [facility] Pulmonology, I would not be able to [...] to see her back in ~3 months. 10/23/2024 Pulmonary aspergillosis (ICD-10 - B44.1) Biopsy-proven [...] vs. extending it out to 1 year. 08/13/2024 Bronchiectasis, uncomplicated (ICD-10 - J47.9) Incidental finding on LDCT 03/06/2024. No significant complaint of cough or excessive secretions. 03/12/2024 Bronchiectasis, uncomplicated (ICD-10 - J47.9) Incidental finding on LDCT 03/06/2024. Appears asymptomatic. 05/08/2024 Multiple pulmonary nodules (ICD-10 - R91.8) New nodules on LDCT 03/06/2024 compared to 02/27/2023, most suspicious a spiculated 12mm nodule in RUL @ 45.5% risk of malignancy according to [facility] model. Nodify CDT did not identify any auto-antibodies, but Nodifiy XL2 remained at an indefinite risk which [...] Remains asymptomatic for any daily productive cough. 05/08/2024 Chronic respiratory failure with hypoxia (ICD-10 - J96.11) Piur-pw-wget encounter performed with the patient to document [...] respiratory failure with hypoxia (ICD-10 - J96.11) Mrgs-wp-jvtm encounter performed with the patient to document [...] respiratory failure with hypoxia (ICD-10 - J96.11) Qsxj-sl-ueai encounter performed with the patient to document [...] -Recommendations: Continue O2 @ HS as directed 10/23/2024 Bronchiectasis, uncomplicated (ICD-10 - J47.9) Incidental finding on LDCT 03/06/2024. Denies any significant chest congestion. 12/09/2024 Bronchiectasis, uncomplicated (ICD-10 - J47.9) Incidental finding on LDCT 03/06/2024. No complaints. 12/09/2024 Chronic respiratory failure with hypoxia (ICD-10 - J96.11) Mnng-zu-jmbv encounter performed with the patient to document [...] O2. -Recommendations: No issues reported. Continue O2. 10/23/2024 Chronic respiratory failure with hypoxia (ICD-10 - J96.11) Empd-st-mecu encounter performed with the patient to document [...] HS. Continue O2 @ HS as directed 08/13/2024 [...] Continue good diet and healthy calorie intake. 10/23/2024 History of tobacco abuse (ICD-10 - Z87.891) 1ppd x 50 years, quit 02/26/2023 No LDCT d/t aspergillus/nodule s. 12/09/2024 History of tobacco abuse (ICD-10 - Z87.891) 1ppd x 50 years, quit 02/26/2023 No LDCT d/t aspergillus/nodule s. 12/09/2024 Underweight (ICD-10 - R63.6) Continue healthy weight gain. 10/23/2024 Underweight (ICD-10 - R63.6) Continue healthy weight gain. 05/08/2024 Other Remains off cigarettes since 02/2023. 08/13/2024 Other Remains off cigarettes since 02/2023. 10/23/2024 Other Remains off cigarettes since 02/2023. 12/09/2024 Other Plan Of Treatment Future Test Test Name Order Date ITRACONAZOLE LEVEL 01/10/2025 CT Chest w/o contrast 01/10/2025 Hepatic Function Panel 01/10/2025 Insurance Providers Payer Name Payer Address Payer Phone Subscriber Number Group Number Insured Name Patient Relationship to Insured Coverage Start Date Coverage End Date MEDIC[place] [address] [place] [place] [address] [id number] Ana María Simpson Self - patient is the insured [employer] MEDICARE SUPPLEMENT [address] [address] [place] [address] [phone] [id number] Ana María Simpson Self - patient is the insured Medical (General) History Medical History History ICD Code Centrilobular emphysema J43.2 Chronic respiratory failure with hypoxia J96.11 Ascending aorta dilatation I77.810 Multiple pulmonary nodules R91.8 Bronchiectasis, uncomplicated J47.9 Pulmonary aspergillosis B44.1 History of tobacco abuse Z87.891 Surgical History Surgery Date(Month/Year) tonsillectomy and adenoidectomy melanoma excision EBUS 05/13/2024 Hospitalization History Reason Date(Month/Year) COPD Exacerbation-TBH 02/26/2023
--- OUTSIDE RECORDS SUMMARY | 2025-01-15 08:42 | XMS_ITS | Clinical Summary ---
Author Organization [facility] Address [address] [place] [address] Care Team Providers Care Windows Software Developer Name Role Phone Karla Macedo MD Primary Care Provider [phone] Allergies Active Allergy Reactions Criticality Noted Date Comments Latex Rash Low 04/23/2024 Penicillins Nausea And Vomiting,Rash Low 04/23/2024 Medications albuterol 90 mcg/actuation inhaler INHALE 2 PUFFS BY MOUTH EVERY 4 HOURS NEEDED for SHORTNESS OF BREATH Active escitalopram (Lexapro) 5 mg tablet Oral for 30 Days 4 Active Stiolto Respimat 2.5-2.5 mcg/actuation mist inhaler 1 (one) time each day at the same time. 4 Active Active Problems Problem Noted Date Diagnosed Date Tachycardia 05/09/2024 Sinusitis, acute maxillary 05/09/2024 History of tobacco abuse 05/09/2024 Anxiety, generalized 05/09/2024 Centrilobular emphysema 04/30/2024 Bronchiectasis 04/30/2024 Chronic respiratory failure with hypoxia 024 Multiple pulmonary nodules 04/30/2024 COPD (chronic obstructive pulmonary disease) 07/2023 Nicotine dependence, cigarettes, in remission Family History Medical History Relation Name Comments malignant neoplasm of unspecified site Brother diabetes mellitus Maternal Grandfather diabetes mellitus Maternal Grandmother diabetes mellitus Mother without me ntion of complication, type II or unspecified type, not stated as controlled Relation Name Status Comments Brother Maternal Grandfather Maternal Grandmother Mother Social History Tobacco Use Types Packs/Day Years Used Date Smoking Tobacco: Former Cigarettes Smokeless Tobacco: Never Tobacco Cessation:Counseling Given: Not Answered Alcohol Use Standard Drinks/Week Comments Not Currently 0 (1 standard drink = 0.6 oz pur e alcohol) Humiliation, Afraid, Rape, and Kick questionnair e Answer Date Recorded Within the last year, have y ou been afraid of your partner or ex-partner? No 05/09/2024 Emotionally Abused Not on file 05/09/2024 Physically Abused Not on file 05/09/2024 Sexually Abused Not on file 05/09/2024 PHQ-2 Answer Date Recorded Patient Health Questionnaire-2 Score 0 05/09/2024 Comments Unknown Sex and Gender Information Value Date Recorded Sex Assigned at Not on file Legal Sex Female 10:06 AM EST Gender Identity Not on file Sexual Orientation Not on file Last Filed Vital Signs Vital Sign Reading Time Taken Comments Blood Pressure 133/72 05/13/2024 3:00 PM EST Pulse 86 05/13/2024 3:00 PM EST Temperature 36.4 C (97.5 F) 05/13/2024 3:00 PM EST Respiratory Rate 16 05/13/2024 3:00 PM EST Oxygen Saturation 93% 05/13/2024 3:00 PM EST Inhaled Oxygen Concentration - - Weight 43 kg (94 lb 12.8 oz) 05/13/2024 10:28 AM EST Height 160 cm (5' 3 ) 05/13/2024 10:28 AM EST Body Mass Index 16.79 05/13/2024 10:28 AM EST Plan of Treatment Health Maintenance Due Date Last Done Comments CT Colonography 1959 Colonoscopy 1960 Colorectal Cancer Screening 1960 FIT-DNA 1959 FIT 1959 FOBT 1960 Medicare Initial Physical (IPPE) 1960 Sigmoidoscopy 1960 Pneumococcal Vaccine: 50+ Ye ars (1 of 2 - PCV) 12/23/1978 Pap Smear 12/23/1980 Adult Tetanus 12/23/1981 Cervical Cancer Screening 12/23/1989 HPV/Cotest 12/23/1989 Mammogram 1999 Zoster Vaccines (1 of 2) 12/23/2009 COVID-19 Vaccine ( - 2023-2 5 season) 2024 Fall Risk Screening 12/23/2024 05/09/2024 Influenza Vaccine (#1) 2025 Depression Screening 05/09/2025 05/09/2024 HIB Vaccines Aged Out No longer eligi ble based on patient's age to complete this topic HPV Vaccines Aged Out No longer eligi ble based on patient's age to complete this topic IPV Vaccines Aged Out No longer eligi ble based on patient's age to complete this topic Meningococcal B Vaccine Aged Out No l onger eligible based on patient's age to complete this topic Meningococcal Vaccine Aged Out No joseph cha eligible based on patient's age to complete this topic Rotavirus Vaccines Aged Out No longer eligible based on patient's age to complete this topic Additional Health Concerns Infection Onset Date Last Indicated Tuberculosis Rule-Out 05/13/2024 05/13/2024 Insurance [employer] Care Teams Windows Software Developer Relationship Specialty Start Date End Date Karla Macedo MD [address] [place] [address] PCP - General 05/13/24
[2025-01-15 10:25] LABS: Alanine Aminotransferase 57 U/L (14-59); Albumin Globulin Ratio 1.2; Albumin Level 3.7 g/dL (3.4-5.0); Alkaline Phosphatase 85 U/L (46-116); Aspartate Amino Transferase 45 U/L (15-37); Globulin 3.2 g/dL; Total Protein 6.9 g/dL (6.4-8.2)
== END 2025-01-15 08:38 | disposition home or self-care (01) ==
LOC: LAB 08:40
PROVIDERS: PCP Family Medicine; Visit Provider Internal Medicine
DX: B44.1 Other pulmonary aspergillosis (principal)
CPT/HCPCS: 36415; 80076; 80189

== ENCOUNTER 2025-03-12 09:25 | Outpatient (OUT) | payer MEDICARE, OTHER, SELFPAY ==
--- NOTE | 2025-03-12 09:27 | CT_ITS ---
The [address] [address] Patient Name: BOB SIMPSON MRN: [id number] date: 1960 Sex: F Assigned Patient Location: CT Current Patient Location: CT Accession/Order Number: [id number] Exam Date: 03/12/2025 09:30 Report Date: 03/12/2025 10:07 At the request of: REX COLEMAN DO Procedure: CT chest wo con CT CHEST WITHOUT CONTRAST CLINICAL DATA: Follow-up pulmonary aspergillosis. COMPARISON: 10/18/2024 and 03/06/2024 Spiral images were obtained through the chest without contrast. This CT exam was performed using one or more following dose reduction techniques: Automated exposure control, adjustment of the mA and/or kV according to patient size, or use of iterative reconstruction technique. The heart is borderline enlarged, particularly the left ventricle. There is minor coronary artery disease. No pericardial fluid is identified. There is continued mild dilatation of the ascending aorta with diameter of approximately 4.2 cm. There is atherosclerotic plaque at the aortic arch, descending aorta and proximal great vessels. No enlarged lymph nodes are identified. There is dextroscoliotic curvature and minor endplate spurring at the spine. There is obstructive lung disease with airspace lucencies and subpleural blebs. There is residual stellate density at the right apex however there is no residual soft tissue component. This may be scarring. There is also minimal atelectasis or scarring at the bases. There is no developing consolidation, pleural effusion or pneumothorax. A similar tiny nodular density is again seen at the right upper lobe (axial image 32). There is no new pulmonary nodularity. Limited imaging through the upper abdomen shows minor diverticulosis of the splenic flexure. CT/CT chest wo con IMPRESSION: OBSTRUCTIVE LUNG DISEASE. SMALL STELLATE AREA AT THE RIGHT APEX WHICH MAY BE RESIDUAL SCARRING. STABLE TINY RIGHT UPPER LOBE NODULE. BORDERLINE CARDIOMEGALY AND SIMILAR MILD DILATATION AT THE ASCENDING AORTA. Impression dictated by: Jyotsna Noel M.D. 03/12/2025 10:07 AM Dictation Location: [place] [address] Electronically authenticated by: [id number] Y Date: 03/12/2025 10:07
--- OUTSIDE RECORDS SUMMARY | 2025-03-12 09:27 | XMS_ITS | Clinical Summary ---
Author Organization [facility] Address [address] [place] [address] Care Team Providers Care Dock Hand Name Role Phone Karla Macedo MD Primary Care Provider [phone] Allergies Active Allergy Reactions Criticality Noted Date [...] 1999 Zoster Vaccines (1 of 2) 12/23/2009 Fall Risk Screening 12/23/2024 05/09/2024 COVID-19 Vaccine (1 - 2023-2 5 season) 2025 Influenza Vaccine (#1) 2025 Depression Screening 05/09/2025 [...] Last Indicated Tuberculosis Rule-Out 05/13/2024 05/13/2024 Insurance [facility] Care Teams Dock Hand Relationship Specialty Start Date End Date Karla Macedo MD [address] [place] [address] PCP - General 05/13/24
--- OUTSIDE RECORDS SUMMARY | 2025-03-12 09:27 | XMS_ITS | Encounter Summary ---
Author Organization [facility] Address [address], [address] [place] [address] Care Team Providers Care Precipitator Operator Name Role Phone Karla Macedo MD Primary Care Provider [phone] Encounter Details Date Type Department Care Team (Late st Contact Info) Description 03/03/2025 Abstract [facility] Pulmonology [address] [place] [address] [facility], [address] [place], [place] [id number] Social History Tobacco Use Types Packs/Day Years Used Date Smoking Tobacco: Never Assessed Comments Unknown Sex and Gender Information Value Date Recorded Sex Assigned at Female 02/28/2025 12:30 PM EDT Legal Sex Female 12:26 PM EDT Gender Identity Female 02/28/2025 12:30 PM EDT Sexual Orientation Straight 02/28/2025 12 :30 PM EDT documented as of this encounter Plan of Treatment Upcoming Encounters Date Type Department Care Team (Late st Contact Info) Description 03/25/2025 11:00 AM EDT Office Visit [facility] [address] [facility] [facility] [address] [place] [address] [facility], [address] [place] [address] [address] [place] [address] Aspergillosis/Emphyse [place] from [facility]. documented as of this encounter Visit Diagnoses Not on filedocumented in this encounter Care Teams Precipitator Operator Relationship Specialty Start Date End Date Karla Macedo MD [address] [place] [phone] PCP - General Family Medicine 02/28/25 documented as of this encounter
--- OUTSIDE RECORDS SUMMARY | 2025-03-12 09:27 | XMS_ITS | Clinical Summary ---
Author Organization [facility] Address [address], [address] [place] [address] Care Team Providers Care Printer Assistant Name Role Phone Karla Macedo MD Primary Care Provider [phone] Encounters Date Type Department Care Team Description 03/03/2025 [facility] Pulmonology [address] [facility] [address] [place] [address] [place] Stephens DO from Last 3 Months Social History Tobacco Use Types Packs/Day Years Used Date Smoking Tobacco: Never Assessed Comments Unknown Sex and Gender Information Value Date Recorded Sex Assigned at Female 02/28/2025 12:30 PM EDT Legal Sex Female 12:26 PM EDT Gender Identity Female 02/28/2025 12:30 PM EDT Sexual Orientation Straight 02/28/2025 12 :30 PM EDT Plan of Treatment Upcoming Encounters Date Type Department Care Team (Late st Contact Info) Description 03/25/2025 11:00 AM EDT Office Visit [facility] [address] [facility] [address] [place] [address] [place] Stephens DO [address] [facility] [address] [place] [address] Aspergillosis/Emphyse ma-[place] from [facility]. Health Maintenance Due Date Last Done Comments Depression Screen 1971 HIV screen 12/23/1974 Hepatitis C screen 12/23/1977 DTaP/Tdap/Td vaccine (1 - Tdap) 12/23/1978 Pap smear 12/23/1980 Cervical cancer screen 12/23/1989 HPV (without or with Pap) 12/23/1989 Breast cancer screen 1999 Lipids 1999 Colonoscopy 12/23/2004 Colorectal Cancer Screen 12/23/2004 FIT/FOBT: Average risk 12/23/2004 Fecal-DNA (Cologuard): Average risk 12/23/2004 Sigmoidoscopy/CT colonography 12/23/2004 Pneumococcal 50+ years Vacci ne (1 of 1 - PCV) 12/23/2009 Shingles vaccine (1 of 2) 12/23/2009 DEXA (modify frequency per F RAX score) 12/23/2014 Flu vaccine (#1) 12/27/2024 COVID-19 Vaccine ( - 2023-2 5 season) 2025 Annual Wellness Visit (Medicare) 02/28/2025 Respiratory Syncytial Virus (RSV) or age 60 yrs+ (1 - 1-dose 75+ series) 12/23/2034 Hepatitis A vaccine Aged Out No longe r eligible based on patient's age to complete this topic Hepatitis B vaccine Aged Out No longe r eligible based on patient's age to complete this topic Hib vaccine Aged Out No longer eligi ble based on patient's age to complete this topic Meningococcal (ACWY) vaccine Aged Out No longer eligible based on patient's age to complete this topic Meningococcal B vaccine Aged Out No l onger eligible based on patient's age to complete this topic Polio vaccine Aged Out No longer elig ible based on patient's age to complete this topic Insurance MEDICARE [employer] on file Care Teams Printer Assistant Relationship Specialty [place] [address] [place] [phone] PCP - General Family Medicine 02/28/25
== END 2025-03-12 09:26 | disposition home or self-care (01) ==
LOC: CT 09:25
PROVIDERS: PCP Family Medicine; Visit Provider Internal Medicine
DX: B44.1 Other pulmonary aspergillosis (principal); J44.9 Chronic obstructive pulmonary disease, unspecified; R91.1 Solitary pulmonary nodule
CPT/HCPCS: 71250